=== PATIENT | female | born 1970 | race Caucasian/White ===

== ENCOUNTER 2019-02-25 17:35 | Emergency (ER) | payer BC, OTHER ==
[2019-02-25 17:39] VITALS: RESP 18
--- NOTE | 2019-02-25 17:56 | ED ---
General Adult HPI - General Chief complaint: Arrhythmia/Palpitations Stated complaint: heart concerns Time Seen by Provider: 02/25/19 17:35 Source: patient, RN notes reviewed Mode of arrival: ambulatory Limitations: no limitations - History of Present Illness Initial comments: This a 48-year-old female with a significant past medical history for PVCs. Patient states today she was at a restaurant she felt as though she was having PVCs. Patient had multiple PVCs and they did not seem to be stopping centimeter nervous and she came to the emergency department. Patient states she was short of breath with a PVC occurred but it only lasted seconds and then would resolve. Patient states currently she is having no PVCs and no shortness of breath per patient denies any chest pain. Patient denies any recent fever chills or cough. Patient denies abdominal pain patient denies nausea vomiting diarrhea. patient denies lightheadedness dizziness or near syncopal episode. Patient denies any caffeine use patient denies any drug use. Patient denies any alcohol use. He denies any decongestant use. Patient denies any swelling to the legs or calf tenderness. - Related Data Home Medications Medication Instructions Recorded Confirmed Cholecalciferol [Vitamin D3] 4,000 unit PO DAILY 02/25/19 02/25/19 Cyclobenzaprine [Flexeril] 10 mg PO DAILY PRN 02/25/19 02/25/19 Fexofenadine HCl [Melyssa Allergy] 180 mg PO DAILY 02/25/19 02/25/19 Fluticasone Nasal [place] [Flonase 1 spray EA NOSTRIL DAILY 02/25/19 02/25/19 Nasal [place]] Ibuprofen [Motrin] 600 mg PO Q8H PRN 02/25/19 02/25/19 Allergies Allergy/AdvReac Type Severity Reaction Status Date / Time latex Allergy Severe Rash/Hives/Lips Verified 02/25/19 18:46 swell codeine Allergy Rash/Hives Verified 02/25/19 18:46 Penicillins Allergy Rash/Hives Verified 02/25/19 18:46 Sulfa (Sulfonamide Allergy Rash/Hives Verified 02/25/19 18:46 Antibiotics) Review of Systems ROS Statement: Those systems with pertinent positive or pertinent negative responses have been documented in the HPI. ROS Other: All systems not noted in ROS Statement are negative. Past Medical History Additional Past Medical History / Comment(s): PVC's History of Any Multi-Drug Resistant Organisms: None Reported Past Surgical History: Cholecystectomy, Orthopedic Surgery, Uterine Ablation Additional Past Surgical History / Comment(s): D&C Past Psychological History: No Psychological Hx Reported Smoking Status: Former smoker Past Alcohol Use History: None Reported Past Drug Use History: None Reported General Exam - General Exam Comments Initial Comments: GENERAL: Patient is well-developed and well-nourished. Patient is nontoxic and well- hydrated and is in no acute distress. ENT: Neck is soft and supple. No significant lymphadenopathy is noted. Oropharynx is clear. Moist mucous membranes. Neck has full range of motion without eliciting any pain. EYES: The sclera were anicteric and conjunctiva were pink and moist. Extraocular movements were intact and pupils were equal round and reactive to light. Eyelids were unremarkable. PULMONARY: Unlabored respirations. Good breath sounds bilaterally. No audible rales rhonchi or wheezing was noted. CARDIOVASCULAR: There is a regular rate and rhythm without any murmurs gallops or rubs. ABDOMEN: Soft and nontender with normal bowel sounds. No palpable organomegaly was noted. There is no palpable pulsatile mass. SKIN: Skin is clear with no lesions or rashes and otherwise unremarkable. NEUROLOGIC: Patient is alert and oriented x3. Cranial nerves II through XII are grossly intact. Motor and sensory are also intact. Normal speech, volume and content. Symmetrical smile. MUSCULOSKELETAL: Normal extremities with adequate strength and full range of motion. No lower extremity swelling or edema. No calf tenderness. LYMPHATICS: No significant lymphadenopathy is noted PSYCHIATRIC: Normal psychiatric evaluation. Limitations: no limitations Course Vital Signs 02/25/19 02/25/19 17:36 18:46 Temperature 98.2 F Pulse Rate 90 87 Respiratory 18 18 Rate Blood Pressure 138/84 123/72 O2 Sat by Pulse 100 97 Oximetry Medical Decision Making - Medical Decision Making EKG shows normal sinus rhythm at 93 bpm AL interval 176 dresses 88 QT interval 376 QTC is 467. Patient's EKG shows no ST segment elevation or depression or T wave abnormalities are noted. Patient had multiple episodes of PVCs in the emergency department that correlated with her symptoms. - Lab Data Result diagrams: 02/25/19 17:55 02/25/19 17:55 Lab Results 04/19/19 04/19/19 04/19/19 Range/Units 17:55 17:55 17:55 WBC 10.0 (3.8-10.6) k/uL RBC 4.74 (3.80-5.40) m/uL Hgb 13.6 (11.4-16.0) gm/dL Hct 41.4 (34.0-46.0) % MCV 87.4 (80.0-100.0) fL MCH 28.7 (25.0-35.0) pg MCHC 32.8 (31.0-37.0) g/dL RDW 13.8 (11.5-15.5) % Plt Count 235 (150-450) k/uL Neutrophils % 66 % Lymphocytes % 25 % Monocytes % 3 % Eosinophils % 4 % Basophils % 1 % Neutrophils # 6.6 (1.3-7.7) k/uL Lymphocytes # 2.5 (1.0-4.8) k/uL Monocytes # 0.3 (0-1.0) k/uL Eosinophils # 0.4 (0-0.7) k/uL Basophils # 0.1 (0-0.2) k/uL PT 9.6 (9.0-12.0) sec INR 0.9 (<1.2) APTT 24.0 (22.0-30.0) sec Sodium 140 (137-145) mmol/L Potassium 3.8 (3.5-5.1) mmol/L Chloride 106 (98-107) mmol/L Carbon Dioxide 26 (22-30) mmol/L Anion Gap 8 mmol/L BUN 16 (7-17) mg/dL Creatinine 0.53 (0.52-1.04) mg/dL Est GFR (CKD-EPI)AfAm >90 (>60 ml/min/1.73 sqM) Est GFR (CKD-EPI)NonAf >90 (>60 ml/min/1.73 sqM) Glucose 126 H (74-99) mg/dL Calcium 9.4 (8.4-10.2) mg/dL Magnesium 2.1 (1.6-2.3) mg/dL Total Bilirubin 0.9 (0.2-1.3) mg/dL AST 25 (14-36) U/L ALT 30 (9-52) U/L Alkaline Phosphatase 81 (38-126) U/L Troponin I (0.000-0.034) ng/mL Total Protein 7.2 (6.3-8.2) g/dL Albumin 4.3 (3.5-5.0) g/dL TSH 2.670 (0.465-4.680) mIU/L Free T4 0.99 (0.78-2.19) ng/dL 02/25/19 Range/Units 17:55 WBC (3.8-10.6) k/uL RBC (3.80-5.40) m/uL Hgb (11.4-16.0) gm/dL Hct (34.0-46.0) % MCV (80.0-100.0) fL MCH (25.0-35.0) pg MCHC (31.0-37.0) g/dL RDW (11.5-15.5) % Plt Count (150-450) k/uL Neutrophils % % Lymphocytes % % Monocytes % % Eosinophils % % Basophils % % Neutrophils # (1.3-7.7) k/uL Lymphocytes # (1.0-4.8) k/uL Monocytes # (0-1.0) k/uL Eosinophils # (0-0.7) k/uL Basophils # (0-0.2) k/uL PT (9.0-12.0) sec INR (<1.2) APTT (22.0-30.0) sec Sodium (137-145) mmol/L Potassium (3.5-5.1) mmol/L Chloride (98-107) mmol/L Carbon Dioxide (22-30) mmol/L Anion Gap mmol/L BUN (7-17) mg/dL Creatinine (0.52-1.04) mg/dL Est GFR (CKD-EPI)AfAm (>60 ml/min/1.73 sqM) Est GFR (CKD-EPI)NonAf (>60 ml/min/1.73 sqM) Glucose (74-99) mg/dL Calcium (8.4-10.2) mg/dL Magnesium (1.6-2.3) mg/dL Total Bilirubin (0.2-1.3) mg/dL AST (14-36) U/L ALT (9-52) U/L Alkaline Phosphatase (38-126) U/L Troponin I <0.012 (0.000-0.034) ng/mL Total Protein (6.3-8.2) g/dL Albumin (3.5-5.0) g/dL TSH (0.465-4.680) mIU/L Free T4 (0.78-2.19) ng/dL Disposition Clinical Impression: PVC (premature ventricular contraction) Disposition: HOME SELF-CARE Condition: Good Instructions (If sedation given, give patient instructions): Premature Ventricular Contractions (ED) Referrals: Hank Campos MD [Primary Care Provider] - 1-2 days Time of Disposition: 18:59
[2019-02-25 18:09] LABS: Basophils # (A) 0.1 k/uL (0-0.2); Basophils % (A) 1 %; Eosinophils # (A) 0.4 k/uL (0-0.7); Eosinophils % (A) 4 %; HCT 41.4 % (34.0-46.0); HGB 13.6 gm/dL (11.4-16.0); Lymphocytes # (A) 2.5 k/uL (1.0-4.8); Lymphocytes % (A) 25 %; MCH 28.7 pg (25.0-35.0); MCHC 32.8 g/dL (31.0-37.0); MCV 87.4 fL (80.0-100.0); Monocytes # (A) 0.3 k/uL (0-1.0); Monocytes % (A) 3 %; Neutrophils # (A) 6.6 k/uL (1.3-7.7); Neutrophils % (A) 66 %; Platelet Count 235 k/uL (150-450); RBC 4.74 m/uL (3.80-5.40); RDW 13.8 % (11.5-15.5)
[2019-02-25 18:17] LABS: ALT 30 U/L (9-52); AST 25 U/L (14-36); Albumin 4.3 g/dL (3.5-5.0); Alkaline Phosphatase 81 U/L (38-126); Anion Gap 8 mmol/L; Blood Urea Nitrogen 16 mg/dL (7-17); Calcium 9.4 mg/dL (8.4-10.2); Carbon Dioxide 26 mmol/L (22-30); Chloride 106 mmol/L (98-107); Glucose 126 mg/dL (74-99); INR 0.9 (<1.2); Magnesium 2.1 mg/dL (1.6-2.3); Potassium 3.8 mmol/L (3.5-5.1); Prothrombin Time 9.6 sec (9.0-12.0); Sodium 140 mmol/L (137-145); Total Bilirubin 0.9 mg/dL (0.2-1.3); Total Protein 7.2 g/dL (6.3-8.2)
[2019-02-25 18:34] LABS: T4, Free (Free Thyroxine) 0.99 ng/dL (0.78-2.19)
[2019-02-25 18:48] VITALS: PULSE 87
[2019-02-25 19:18] VITALS: BP 128/74; TEMP 98.3
== END 2019-02-25 19:17 | disposition home or self-care (01) ==
LOC: EC 17:35
DX: I49.3 Ventricular premature depolarization (principal); Z87.891 Personal history of nicotine dependence; Z79.899 Other long term (current) drug therapy; Z88.0 Allergy status to penicillin; Z88.2 Allergy status to sulfonamides; Z88.5 Allergy status to narcotic agent; Z91.040 Latex allergy status
CPT/HCPCS: 36415; 80053; 83735; 84439; 84443; 84484; 85025; 85610; 85730; 93005; 99285

== ENCOUNTER → 2019-03-09 | Outpatient (CLI) | payer BC ==
--- NOTE | 2019-03-09 11:45 | EST ---
EXERCISE STRESS AGE: 48 SEX: F HT: 66" WT: 280 PROTOCOL: José Miguel Stress Test STAGE: 3 DURATION OF EXERCISE: 6:32 HEART RATE REST: 100 BLOOD PRESSURE REST: 132/82 MAXIMUM HEART RATE ACHIEVED: 151 MAXIMUM BLOOD PRESSURE: 167/77 85% MPHR: 146 100% MPHR: 172 METS: 7.9 INDICATIONS: PVC CLINICAL INFORMATION: Baseline heart rate 100 beats per minute. Baseline blood pressure 132/82 mmHg. Baseline 12-lead ECG shows sinus rhythm with nonspecific ST upsloping abnormality. Patient exercised on a José Miguel protocol for 6.5 minutes and was quite short of breath by then. Occasional PVCs and ventricular couplets noted. Peak heart rate 151 beats per minute. Normal blood pressure response. There was no clear-cut ECG evidence for ischemia, no sustained or nonsustained arrhythmias noted. MMODL / IJN: [id number] /
== END | disposition home or self-care (01) ==
LOC: RADNMMAIN 08:59
PROVIDERS: ATTEND Family Medicine
DX: I49.3 Ventricular premature depolarization (principal)
CPT/HCPCS: 93017

== ENCOUNTER → 2019-10-28 | Outpatient (CLI) | payer BC ==
--- NOTE | 2019-11-14 08:55 | MM ---
Reason for exam: screening (asymptomatic). Last mammogram was performed 1 year and 6 months ago. History: Family history of breast cancer in paternal aunt. Physical Findings: A clinical breast exam by your physician is recommended on an annual basis and results should be correlated with mammographic findings. MG Screening Mammo w CAD Bilateral CC and MLO view(s) were taken. Prior study comparison: April 23, 2018, mammogram. February 18, 2017, mammogram. April 13, 2013, bilateral digital screening mammo w/CAD. June 20, 2011, bilateral digital screening mammo w/CAD. There are scattered fibroglandular densities. No significant changes when compared with prior studies. ASSESSMENT: Benign, BI-RAD 2 RECOMMENDATION: Routine screening mammogram of both breasts in 1 year.
== END | disposition home or self-care (01) ==
LOC: RADMAMWWP 07:03
PROVIDERS: ATTEND Family Medicine
DX: Z12.31 Encounter for screening mammogram for malignant neoplasm of breast (principal)
CPT/HCPCS: 77067

== ENCOUNTER → 2020-02-23 | Outpatient (CLI) | payer OTHER ==
--- NOTE | 2020-02-23 12:32 | XR ---
EXAMINATION TYPE: XR shoulder complete LT DATE OF EXAM: 02/23/2020 COMPARISON: NONE HISTORY: 49-year-old female M24.9, pain for a few weeks TECHNIQUE: 3 views FINDINGS: AC joint appears intact. Subacromial space is preserved. No acute fracture, subluxation, or dislocation seen. There is some limitation due to underpenetration related to patient's large body h abitus. No tendinous or bursal calcifications. IMPRESSION: No acute osseous abnormality seen.
== END | disposition home or self-care (01) ==
LOC: RADXRMAIN 12:11
PROVIDERS: ATTEND Family Medicine
DX: M24.9 Joint derangement, unspecified (principal)

== ENCOUNTER 2020-09-13 08:32 | Day surgery (SDC) | payer OTHER ==
[2020-09-11 14:44] VITALS: BMI 46.0
--- NOTE | 2020-09-13 07:40 | P.GSHP ---
History of Present Illness H&P Date: 09/13/20 CHIEF COMPLAINT: Colon screen HISTORY OF PRESENT ILLNESS: The patient is a 50-year-old female who presents for colon screen. Lower endoscopy was offered for further evaluation and management. PAST MEDICAL HISTORY: Please see list. PAST SURGICAL HISTORY: Please see list. MEDICATIONS: Please see list. ALLERGIES: Please see list. SOCIAL HISTORY: No illicit drug use FAMILY HISTORY: No reports of Crohn disease or ulcerative colitis. REVIEW OF ORGAN SYSTEMS: CONSTITUTIONAL: No reports of fevers or chills. PHYSICAL EXAM: VITAL SIGNS: Stable GENERAL: Well-developed pleasant in no acute distress. HEENT: No scleral icterus. Extraocular movements grossly intact. Moist buccal mucosa. NECK: Supple without lymphadenopathy. CHEST: Unlabored respirations. Equal bilateral excursions. CARDIOVASCULAR: Regular rate and rhythm. Distal 2+ pulses. ABDOMEN: Soft, nontender, nondistended. MUSCULOSKELETAL: No clubbing, cyanosis, or edema. ASSESSMENT: 1. Colon screen. PLAN: 1. Recommend proceeding with a lower endoscopy Past Medical History Additional Past Medical History / Comment(s): PVC's,migraines,steroids Sept 2020 History of Any Multi-Drug Resistant Organisms: None Reported Past Surgical History: Cholecystectomy, Orthopedic Surgery, Uterine Ablation Additional Past Surgical History / Comment(s): D&C Past Anesthesia/Blood Transfusion Reactions: No Reported Reaction Smoking Status: Former smoker - Past Family History Mother Family Medical History: No Reported History Sister(s) Family Medical History: Cancer, Deep Vein Thrombosis (DVT) Additional Family Medical History / Comment(s): BRCA1-Carries breast and ovarian CA gene and blood clot gene Father Additional Family Medical History / Comment(s): BRCA1 gene Medications and Allergies Home Medications Medication Instructions Recorded Confirmed Type Cyclobenzaprine [Flexeril] 10 mg PO DAILY PRN 02/25/19 09/11/20 History DULoxetine HCL [Cymbalta] 60 mg PO HS 09/11/20 09/11/20 History Magnesium 250 mg PO HS 09/11/20 09/11/20 History Propranolol [Inderal] 10 mg PO HS 09/11/20 09/11/20 History Allergies Allergy/AdvReac Type Severity Reaction Status Date / Time latex Allergy Severe Rash/Hives/Lips Verified 09/11/20 14:35 swell codeine Allergy Rash/Hives Verified 09/11/20 14:35 Penicillins Allergy Rash/Hives Verified 09/11/20 14:35 Sulfa (Sulfonamide Allergy blisters Verified 09/11/20 14:35 Antibiotics)
[~2020-09-13 08:32] MED LIST: LACTATED RINGERS 1,000 ML IV SCH; LIDOCAINE 1% (10MG/ML) FOR IV START INTRADERMA PRN
[2020-09-13 09:09] VITALS: RESP 16; TEMP 97.2
[2020-09-13] MEDS ORDERED: PROPOFOL 10 MG/ML 20 ML VIAL IV ONE (09:20)
--- NOTE | 2020-09-13 09:51 | P.PCN ---
Date of Procedure: 09/13/20 Description of Procedure: PREOPERATIVE DIAGNOSIS: Family history colon polyps in mother and brother Colonoscopy screening, first POSTOPERATIVE DIAGNOSIS: Family history colon polyps in mother and brother Colonoscopy screening, first Ascending colon polyp Descending colon polyp Sigmoid colon polyp OPERATION: Colonoscopy to the ileocecal valve and appendiceal orifice, cecum Colonoscopy with multiple hot snare polypectomies SURGEON: Emily Anderson MD. ANESTHESIA: MAC. INDICATIONS: The patient is an 50-year-old female who presents for her first colonoscopy. Benefits and risks were described and informed consent was obtained. DESCRIPTION OF PROCEDURE: The patient had undergone Suprep. He had been brought into the operating room and laid in the left lateral decubitus position. After adequate intravenous sedation, the rectum was examined with 2% lidocaine jelly. The prostate was unremarkable. External hemorrhoids were encountered. The rectal tone was within normal limits. No lesions were palpated in the rectal vault. An Olympus colonoscope was advanced until the cecum, ileocecal valve and appendiceal orifice were clearly viewed. The prep was excellent. Sigmoid diverticulosis was encountered. Multiple colonic polyps were found and snare polypectomy. No evidence of focal colitis was found. Retroflexion of the scope demonstrated grade 2 internal hemorrhoids without active bleeding or inflammation. The colon was desufflated. The patient had tolerated the procedure well. Withdrawal time was over 6 minutes. FINDINGS: Aronchick preparation quality scale 1 (1-5) Internal hemorrhoids, grade 2 External hemorrhoids, grade 2. No arteriovenous malformations Sigmoid diverticulosis, few, small and scattered Removal of 5 polyps: - Snare polypectomy ascending colon, 5 mm tubulovillous adenoma polyp. - Snare polypectomy descending colon x 3, 4 to 6 mm flat villous adenoma po lyps. - Snare polypectomy sigmoid colon, 6 mm flat villous adenoma polyp. No focal colitis. RECOMMENDATIONS: Repeat colonoscopy 3 years, 2022 Plan - Discharge Summary Discharge Rx Participant: No New Discharge Prescriptions: Continue Cyclobenzaprine [Flexeril] 10 mg PO DAILY PRN PRN Reason: Muscle Spasm Propranolol [Inderal] 10 mg PO HS DULoxetine HCL [Cymbalta] 60 mg PO HS Magnesium 250 mg PO HS Discharge Medication List Cyclobenzaprine [Flexeril] 10 mg PO DAILY PRN 02/25/19 [History] DULoxetine HCL [Cymbalta] 60 mg PO HS 09/11/20 [History] Magnesium 250 mg PO HS 09/11/20 [History] Propranolol [Inderal] 10 mg PO HS 09/11/20 [History] Follow up Appointment(s)/Referral(s): Emily Anderson MD [STAFF PHYSICIAN] - 09/25/20 Patient Instructions/Handouts: Colorectal Polyps (DC), Gastroesophageal Reflux Disease (ED) Activity/Diet/Wound Care/Special Instructions: Repeat colonoscopy 3 years, 2022 Discharge Disposition: HOME SELF-CARE
[2020-09-13 10:11] VITALS: BP 128/76; PULSE 77
== END 2020-09-13 10:28 | disposition home or self-care (01) ==
LOC: ORWHC2ENDO 08:32
PROVIDERS: ATTEND Surgery Plastic and Reconstructive Surgery
DX: Z12.11 Encounter for screening for malignant neoplasm of colon (principal); K63.5 Polyp of colon; K57.30 Diverticulosis of large intestine without perforation or abscess without bleeding; K64.1 Second degree hemorrhoids; K21.9 Gastro-esophageal reflux disease without esophagitis; Z83.71 Family history of colonic polyps; I49.3 Ventricular premature depolarization; E66.2 Morbid (severe) obesity with alveolar hypoventilation; Z68.42 Body mass index [BMI] 45.0-49.9, adult; G43.909 Migraine, unspecified, not intractable, without status migrainosus; Z90.49 Acquired absence of other specified parts of digestive tract; Z87.891 Personal history of nicotine dependence; Z98.51 Tubal ligation status; Z98.890 Other specified postprocedural states; Z79.899 Other long term (current) drug therapy; Z84.89 Family history of other specified conditions; Z82.49 Family history of ischemic heart disease and other diseases of the circulatory system; Z88.5 Allergy status to narcotic agent; Z88.0 Allergy status to penicillin; Z88.2 Allergy status to sulfonamides; Z91.040 Latex allergy status
CPT/HCPCS: 81025; 88305; 45385; J2704

== ENCOUNTER → 2020-11-12 | Outpatient (CLI) | payer OTHER ==
--- NOTE | 2020-11-14 14:25 | MM ---
Reason for exam: screening (asymptomatic). Last mammogram was performed 1 year ago. History: Family history of breast cancer in paternal aunt and breast cancer in sister at age 46. Physical Findings: A clinical breast exam by your physician is recommended on an annual basis and results should be correlated with mammographic findings. MG 3D Screening Mammo W/Cad Bilateral CC and MLO view(s) were taken. Prior study comparison: October 28, 2019, bilateral MG screening mammo w CAD. April 23, 2018, mammogram. There are scattered fibroglandular densities. There is chronic nodularity in the right breast. No significant changes when compared with prior studies. ASSESSMENT: Benign, BI-RAD 2 RECOMMENDATION: Routine screening mammogram of both breasts in 1 year.
== END | disposition home or self-care (01) ==
LOC: RADMAMWWP 07:01
PROVIDERS: ATTEND Family Medicine
DX: Z12.31 Encounter for screening mammogram for malignant neoplasm of breast (principal)
CPT/HCPCS: 77063; 77067

== ENCOUNTER → 2021-07-04 | Outpatient (CLI) | payer BC, OTHER ==
--- NOTE | 2021-07-05 08:28 | XR ---
EXAMINATION TYPE: XR chest 2V DATE OF EXAM: 07/04/2021 COMPARISON: None HISTORY: 50-year-old female R05, cough TECHNIQUE: Frontal and lateral views FINDINGS: The cardiomediastinal silhouette, aorta, and pulmonary vasculature are within normal limits. Lungs an d pleural spaces are clear. IMPRESSION: No acute cardiopulmonary process.
== END | disposition home or self-care (01) ==
LOC: RADXRMAIN 17:13
PROVIDERS: ATTEND Nurse Practitioner
DX: R05 Cough (principal)
CPT/HCPCS: 71046

== ENCOUNTER → 2021-08-05 | Outpatient (CLI) | payer BC, OTHER ==
--- NOTE | 2021-08-05 14:57 | XR ---
EXAMINATION TYPE: XR knee complete LT DATE OF EXAM: 08/05/2021 CLINICAL HISTORY: Pain and swelling after fall injury. TECHNIQUE: Three views of the left knee are obtained on 4 images. COMPARISON: None. FINDINGS: There is no acute fracture/dislocation evident in the left knee. Mild to moderate narrowin g patellofemoral and medial tibiofemoral compartments with mild spurring medially medial tibiofemoral compartment. The overlying soft tissue appears unremarkable. IMPRESSION: There is no acute fracture or dislocation in the left knee.
--- NOTE | 2021-08-05 15:58 | CT ---
EXAMINATION TYPE: CT angio head DATE OF EXAM: 08/05/2021 3:49 PM COMPARISON: CT brain March 24, 2014. HISTORY: Right frontal head injury yesterday. Rule out aneurysm with headache. CT DLP: 2217 mGycm Automated exposure control for dose reduction was used. TECHNIQUE: Performed without and with IV Contrast, patient injected with 100 mL of Isovue 370. 3D reconstructed images are created on an independent workstation and reviewed.. FINDINGS: Vascular: There is codominant vertebrobasilar system. Vertebral arteries are patent to basilar junct ion. No significant focal stenosis or aneurysm in the posterior circulation. Hypoplastic bilateral po sterior communicating arteries are present. Images of the anterior circulation show close proximity of the anterior cerebral arteries without vis ualized anterior to indicating artery. No significant focal stenosis or aneurysm is present. Other: Noncontrast CT shows no acute intracranial hemorrhage or midline shift. Mild mucosal thickenin g visualized portion of the right maxillary sinus. IMPRESSION: No aneurysm at the level of the gray[place] of [place].
== END | disposition home or self-care (01) ==
LOC: RADCTMAIN 14:25
PROVIDERS: ATTEND Nurse Practitioner
DX: M25.562 Pain in left knee (principal); R22.42 Localized swelling, mass and lump, left lower limb; W19.XXXA Unspecified fall, initial encounter; S09.90XA Unspecified injury of head, initial encounter
CPT/HCPCS: 73562; 70496; Q9967

== ENCOUNTER → 2021-08-14 | Outpatient (CLI) | payer BC, OTHER ==
--- NOTE | 2021-08-15 04:01 | MR ---
EXAMINATION TYPE: MR knee LT wo con DATE OF EXAM: 08/14/2021 COMPARISON: None HISTORY: Torn meniscus Multiplanar multiecho imaging of the left knee without contrast. The anterior and posterior cruciate ligaments are intact. There is mild knee joint effusion. The claudio ateral ligaments are intact. There is no evidence of a fracture. I see no bony destructive process. There is horizontal tear through the posterior horn of the lateral meniscus extending to the free mar gin. There is some intrasubstance tear within the anterior horn of the lateral meniscus. There is small horizontal tear posterior horn medial meniscus within the substance and no extension t o the articular surface. There is popliteal cyst that measures 3 x 1.5 cm. IMPRESSION: Knee joint effusion. No fracture. Mild subcutaneous edema around the anterior aspect of the knee. Pop liteal cyst. Horizontal tear of the posterior horn of the lateral meniscus. Intrasubstance tears of the anterior h orn lateral meniscus and posterior horn medial meniscus.
== END | disposition home or self-care (01) ==
LOC: RADMRIMAIN 19:26
PROVIDERS: ATTEND Family Medicine
DX: M23.352 Other meniscus derangements, posterior horn of lateral meniscus, left knee (principal); M23.342 Other meniscus derangements, anterior horn of lateral meniscus, left knee; M23.322 Other meniscus derangements, posterior horn of medial meniscus, left knee

== ENCOUNTER → 2022-10-10 | Outpatient (CLI) | payer BC ==
--- NOTE | 2022-10-13 08:37 | MM ---
Reason for Exam: Screening (asymptomatic). Last mammogram was performed 1 year(s) and 11 month(s) ago. Patient History: Menarche at age 12. First Full-Term at age 22. Postmenopausal. Paternal aunt had breast cancer. Sister had breast cancer, age 46. Risk Values: Beatriz 5 year model risk: 2.0%. NCI Lifetime model risk: 15.9%. Prior Study Comparison: 04/23/2018 Screening Mammogram, Unknown. 10/28/2019 Bilateral Screening Mammogram, [facility]. 11/12/2020 Bilateral Screening Mammogram, [facility]. Tissue Density: The breast tissue is heterogeneously dense. This may lower the sensitivity of mammography. Findings: Analyzed By CAD. There is no suspicious group of microcalcifications or new suspicious mass in either breast. Overall Assessment: Negative, BI-RAD 1 Management: Screening Mammogram of both breasts in 1 year. A clinical breast exam by your physician is recommended on an annual basis and results should be correlated with mammographic findings. Electronically signed and approved by: Albert Og M.D. Radiologis
== END | disposition home or self-care (01) ==
LOC: RADMAMWWP 09:29
PROVIDERS: ATTEND Family Medicine
DX: Z12.31 Encounter for screening mammogram for malignant neoplasm of breast (principal); Z78.0 Asymptomatic menopausal state; Z80.3 Family history of malignant neoplasm of breast
CPT/HCPCS: 77063; 77067

== ENCOUNTER → 2023-02-06 | Outpatient (CLI) | payer MEDICAID ==
--- NOTE | 2023-02-06 12:48 | BD ---
EXAMINATION TYPE: Axial Bone Density DATE OF EXAM: 02/06/2023 CLINICAL HISTORY: 52 years old Female. ICD-10 CODE: Z78.0 ASYMPTOMATIC MENOAPUSAL STATE Height: 66.5 Weight: 325.1 FRAX RISK QUESTIONS: Alcohol (3 or more units per day): no Family History (Parent hip fracture): no Glucocorticoids (More than 3mos): no History of Fracture in Adulthood: ribs, coccyx, toe, Secondary Osteoporosis: 1. Type 1 Diabetes: no 2. Hyperthyroidism: no 3. Menopause before 45: no 4. Malnutrition: no 5. Chronic liver disease: no Rheumatoid Arthritis: no Current Tobacco Use: no RISK FACTORS HISTORY OF: Hip Fracture (Right/Left): no Spine Fracture: no History of Wrist Fracture: no Surgery to Spine/Hip(right/left)/Wrist (right/left): no Family History of Osteoporosis: no Active: no Diet low in dairy products/other sources of calcium: yes Postmenopausal woman: yes Take estrogen and/or progesterone medications: no Lost more than 2 inches in height since high school: no Frequent falls: yes Poor Health: no Hyperparathyroidism: no Adrenal Insufficiency: no MEDICATIONS: Prednisone or other steroids: no Thyroid Medications:no Osteoporosis Medications: no Additional Medications: Vit D, Multi Vit, reflux meds, magnesium Additional History: EXAM MEASUREMENTS: Bone mineral densitometry was performed using the [employer] System. Bone mineral density as measured about the Lumbar spine is: ----- L1-L4(G/cm2): 1.149 T Score Values are as follows: ----- L1: -0.1 ----- L2: 0.0 ----- L3: -0.6 ----- L4: -0.4 ----- L1-L4: -0.3 Z Score Values are as follows: ----- L1: -0.7 ----- L2: -0.6 ----- L3: -1.2 ----- L4: -1.0 ----- L1-L4: -0.8 Baseline study Bone mineral density about the R hip (g/cm2): 1.148 Bone mineral density about the L hip (g/cm2): 1.101 T Score values are as follows: -----R Neck: -0.1 -----L Neck: -0.3 -----R Total: 1.1 -----L Total: 0.7 Z Score values are as follows: -----R Neck: 0.0 -----L Neck: -0.2 -----R Total: 0.8 -----L Total: 0.5 Baseline study FRAX%s: The graph provided illustrates a 3.6% chance for a major osteoporotic fx and a 0.1% chance fo r the hips probability for fx in 10 years time. IMPRESSION: Normal (Values between +1 and -1 indicate normal bone mass). Consider repeating this study in 5 year s or sooner if there is some new clinical indication. NOTE: T-SCORE=SD OF THE YOUNG ADULT MEAN.
== END | disposition home or self-care (01) ==
LOC: RADBDWWP 10:45
PROVIDERS: ATTEND Family Medicine
DX: Z78.0 Asymptomatic menopausal state (principal)
CPT/HCPCS: 77080

== ENCOUNTER → 2023-10-16 | Outpatient (CLI) | payer MEDICAID ==
--- NOTE | 2023-10-20 11:21 | MM ---
Reason for Exam: Screening (asymptomatic). Last screening mammogram was performed 12 month(s) ago. Patient History: Menarche at age 12. First Full-Term at age 22. Postmenopausal. Patient has history of breast feeding. Patient tested for BRCA1 outcome was negative. Paternal aunt had breast cancer. Sister had breast cancer, age 46. Sister had ovarian cancer, age 48. Paternal aunt tested for BRCA2 outcome was positive. Sister tested for BRCA2 outcome was positive. Risk Values: Beatriz 5 year model risk: 2.1%. NCI Lifetime model risk: 15.7%. Prior Study Comparison: 04/13/2013 Bilateral Screening Mammogram, [facility]. 02/18/2017 Screening Mammogram, Unknown. 04/23/2018 Screening Mammogram, Unknown. 10/28/2019 Bilateral Screening Mammogram, [facility]. 11/12/2020 Bilateral Screening Mammogram, [facility]. 10/10/2022 Bilateral MG 3D screening mammo w/cad, [facility]. Tissue Density: There are scattered fibroglandular densities. Findings: Analyzed By CAD. Heart appears symmetrical and stable. Benign chronic nodularity is within the right breast upper outer middle region. No suspicious groups of microcalcifications, spiculated or lobular masses, architectural distortion or other secondary signs of malignancy are mammographically apparent. Overall Assessment: Benign, BI-RAD 2 Management: Screening Mammogram of both breasts in 1 year. A negative mammogram report should not preclude additional follow up of suspicious palpable abnormalities. Patient should continue monthly self breast exam. A clinical breast exam by your physician is recommended on an annual basis and results should be correlated with mammographic findings. Electronically signed and approved by: Petey Mcqueen D.O. Radiologis
== END | disposition home or self-care (01) ==
LOC: RADMAMWWP 11:08
PROVIDERS: ATTEND Family Medicine
DX: Z12.31 Encounter for screening mammogram for malignant neoplasm of breast (principal); Z78.0 Asymptomatic menopausal state; Z80.3 Family history of malignant neoplasm of breast
CPT/HCPCS: 77063; 77067

== ENCOUNTER 2023-11-12 09:35 | Day surgery (SDC) | payer MEDICAID ==
[2023-11-11 09:21] VITALS: BMI 52.6
--- NOTE | 2023-11-12 07:47 | P.GSHP ---
History of Present Illness H&P Date: 11/12/23 CHIEF COMPLAINT: GERD and colon screen HISTORY OF PRESENT ILLNESS: The patient is a 53-year-old female who presents with gastroesophageal reflux disease and need for colon screen. Upper and lower endoscopy were offered for further evaluation and management. PAST MEDICAL HISTORY: Please see list. PAST SURGICAL HISTORY: Please see list. MEDICATIONS: Please see list. ALLERGIES: Please see list. SOCIAL HISTORY: No illicit drug use FAMILY HISTORY: No reports of Crohn disease or ulcerative colitis. REVIEW OF ORGAN SYSTEMS: CONSTITUTIONAL: No reports of fevers or chills. GI: Denies any blood in stools or constipation. PHYSICAL EXAM: VITAL SIGNS: Stable GENERAL: Well-developed pleasant in no acute distress. HEENT: No scleral icterus. Extraocular movements grossly intact. Moist buccal mucosa. NECK: Supple without lymphadenopathy. CHEST: Unlabored respirations. Equal bilateral excursions. CARDIOVASCULAR: Regular rate and rhythm. Distal 2+ pulses. ABDOMEN: Soft, nondistended. MUSCULOSKELETAL: No clubbing, cyanosis, or edema. ASSESSMENT: 1. Gastroesophageal reflux disease 2. Colon screen. PLAN: 1. Recommend proceeding with an upper and lower endoscopy Past Medical History Additional Past Medical History / Comment(s): PVC's,migraines,polyneuropathy History of Any Multi-Drug Resistant Organisms: None Reported Past Surgical History: Cholecystectomy, Orthopedic Surgery, Uterine Ablation Additional Past Surgical History / Comment(s): D&C, right foot surgery, ankle surgery right 2021, post menopausal Past Anesthesia/Blood Transfusion Reactions: No Reported Reaction Additional Past Anesthesia/Blood Transfusion Reaction / Comment(s): no blood transfusion Smoking Status: Former smoker - Past Family History Mother Family Medical History: No Reported History Sister(s) Family Medical History: Cancer, Deep Vein Thrombosis (DVT) Additional Family Medical History / Comment(s): BRCA1-Carries breast and ovarian CA gene and blood clot gene Father Additional Family Medical History / Comment(s): BRCA1 gene Medications and Allergies Home Medications Medication Instructions Recorded Confirmed Type DULoxetine HCL [Cymbalta] 60 mg PO DAILY 09/11/20 11/11/23 History Magnesium 250 mg PO HS 09/11/20 11/11/23 History Atogepant [Qulipta] 60 mg PO DAILY 11/11/23 11/11/23 History Calcium Carbonate/Vitamin D3 1 each PO DAILY 11/11/23 11/11/23 History [Calcium 500 mg-Vit D3 5 mcg (200 Unit)] Fluticasone Propionate [Flonase 2 spray EA NOSTRIL DAILY 11/11/23 11/11/23 History Allergy Relief] Levocetirizine Dihydrochloride 10 mg PO DAILY 11/11/23 11/11/23 History Multivitamin [Multivitamins Adult 1 each PO DAILY 11/11/23 11/11/23 History Gummies] Omeprazole [PriLOSEC] 20 mg PO DAILY 11/11/23 11/11/23 History Allergies Allergy/AdvReac Type Severity Reaction Status Date / Time latex Allergy Severe Rash/Hives/Lips Verified 11/11/23 08:45 swell codeine Allergy Rash/Hives Verified 11/11/23 08:45 Penicillins Allergy Rash/Hives Verified 11/11/23 08:45 Sulfa (Sulfonamide Allergy blisters Verified 11/11/23 08:45 Antibiotics)
[~2023-11-12 09:35] MED LIST changes: -LIDOCAINE 1% (10MG/ML) FOR IV START INTRADERMA PRN
[2023-11-12 10:39] VITALS: TEMP 97.8
[2023-11-12] MEDS ORDERED: PROPOFOL 10 MG/ML 20 ML VIAL IV ONE (10:48)
[2023-11-12] MEDS ORDERED: KETAMINE HCL IN 0.9 % NACL 50 MG/5 ML SYRINGE ONE (10:48)
[2023-11-12] MEDS ORDERED: MIDAZOLAM 2 MG/2 ML VIAL ONE (10:48)
[2023-11-12] MEDS ORDERED: LIDOCAINE 1% INJ 10MG/ML (20 ML MDV) ONE (10:48)
[2023-11-12] MEDS ORDERED: GLYCOPYRROLATE 0.2 MG/ML 2 ML VIAL ONE (10:48)
[2023-11-12 11:51] VITALS: BP 144/78; PULSE 87; RESP 18
--- NOTE | 2023-11-12 11:59 | P.PCN ---
Date of Procedure: 11/12/23 Description of Procedure: PREOPERATIVE DIAGNOSIS: Gastroesophageal reflux disease. Morbid obesity. POSTOPERATIVE DIAGNOSIS: Gastroesophageal reflux disease. Morbid obesity. Gastritis. OPERATION: Esophagogastroduodenoscopy with biopsies along esophagus, antrum and duodenum SURGEON: Emily Anderson MD ANESTHESIA: MAC. INDICATIONS: The patient is a 53-year-old female who presents with reflux disease. Benefits and risks of the procedure were described. Informed consent was obtained. DESCRIPTION: The patient was brought into the endoscopy suite and laid in the left lateral decubitus position. An Olympus gastroscope was passed along the posterior oropharynx down to the distal esophagus where the squamocolumnar junction was encountered at 36 cm from the incisors. The stomach was entered and no bile reflux was found. Additional findings are listed below. Biopsies with cold forceps were obtained of the antrum. The first through third portion of the duodenum was examined. Retroflexion of the scope confirmed Hill grade 2 lower esophageal valve. The squamocolumnar junction demonstrated LA grade B erosive esophagitis. The stomach was desufflated. The patient tolerated the procedure well. FINDINGS: Squamocolumnar junction 36 cm from the incisors. Diaphragmatic hiatus at 36 cm. Hill grade 3 lower esophageal valve. LA grade B erosive esophagitis. Biopsies obtained Biopsies obtained of the duodenum. Chronic gastritis with biopsies obtained. RECOMMENDATIONS: Upper endoscopy as needed.
--- NOTE | 2023-11-12 12:03 | P.PCN ---
Date of Procedure: 11/12/23 Description of Procedure: PREOPERATIVE DIAGNOSIS: Colonoscopy screening, high risk Family history colon cancer Personal history of colon polyps POSTOPERATIVE DIAGNOSIS: Colonoscopy screening, high risk Family history colon cancer Personal history of colon polyps Diverticulosis, scattered. OPERATION: Colonoscopy to the cecum, ileocecal valve and appendiceal orifice. SURGEON: Emily Anderson MD. ANESTHESIA: MAC. INDICATIONS: The patient is a 53-year-old female who presents for colonoscopy screening. Benefits and risks were described and informed consent was obtained. DESCRIPTION OF PROCEDURE: The patient had undergone Suprep. The patient had been brought into the operating room and laid in the left lateral decubitus position. After adequate intravenous sedation, the rectum was examined with 2% lidocaine jelly. No external hemorrhoids were encountered. The rectal tone was within normal limits. No lesions were palpated in the rectal vault. An Olympus colonoscope was advanced until the cecum, ileocecal valve and appendiceal orifice were clearly viewed. The prep was excellent. Scattered diverticulosis was encountered. No colonic polyps were found. No evidence of focal colitis was found. Retroflexion of the scope demonstrated grade 1 internal hemorrhoids without active bleeding or inflammation. The colon was desufflated. The patient had tolerated the procedure well. Withdrawal time was over 6 minutes. FINDINGS: Aronchick preparation quality scale 1 (1-5) Internal hemorrhoids, grade 1 No external prolapsed hemorrhoids. No arteriovenous malformations. No adenomatous polyps. No focal colitis. RECOMMENDATIONS: Lower endoscopy in 5 years, 2028 Plan - Discharge Summary Discharge Rx Participant: No New Discharge Prescriptions: Continue DULoxetine HCL [Cymbalta] 60 mg PO DAILY Magnesium 250 mg PO HS Multivitamin [Multivitamins Adult Gummies] 1 each PO DAILY Fluticasone Propionate [Flonase Allergy Relief] 2 spray EA NOSTRIL DAILY Atogepant [Qulipta] 60 mg PO DAILY Omeprazole [PriLOSEC] 20 mg PO DAILY Levocetirizine Dihydrochloride 10 mg PO DAILY Calcium Carbonate/Vitamin D3 [Calcium 500 mg-Vit D3 5 mcg (200 Unit)] 1 each PO DAILY Discharge Medication List DULoxetine HCL [Cymbalta] 60 mg PO DAILY 09/11/20 [History] Magnesium 250 mg PO HS 09/11/20 [History] Atogepant [Qulipta] 60 mg PO DAILY 11/11/23 [History] Calcium Carbonate/Vitamin D3 [Calcium 500 mg-Vit D3 5 mcg (200 Unit)] 1 each PO DAILY 11/11/23 [History] Fluticasone Propionate [Flonase Allergy Relief] 2 spray EA NOSTRIL DAILY 11/11/23 [History] Levocetirizine Dihydrochloride 10 mg PO DAILY 11/11/23 [History] Multivitamin [Multivitamins Adult Gummies] 1 each PO DAILY 11/11/23 [History] Omeprazole [PriLOSEC] 20 mg PO DAILY 11/11/23 [History] Follow up Appointment(s)/Referral(s): Emily Anderson MD [STAFF PHYSICIAN] - 12/29/23 4:30 pm Patient Instructions/Handouts: *Surgery [facility] - (Anesthesia) Discharge Instructions Outpatient Surgery, Diverticulosis (DC), Diverticulosis Diet (GEN), Colonoscopy (DC), Upper Endoscopy (DC) Activity/Diet/Wound Care/Special Instructions: Repeat colonoscopy in 5 years2028 Discharge Disposition: HOME SELF-CARE
== END 2023-11-12 12:26 | disposition home or self-care (01) ==
LOC: ORWHC2ENDO 09:35
PROVIDERS: ATTEND Surgery Plastic and Reconstructive Surgery
DX: Z12.11 Encounter for screening for malignant neoplasm of colon (principal); K57.30 Diverticulosis of large intestine without perforation or abscess without bleeding; K64.0 First degree hemorrhoids; K29.50 Unspecified chronic gastritis without bleeding; E66.01 Morbid (severe) obesity due to excess calories; K21.9 Gastro-esophageal reflux disease without esophagitis; Z80.0 Family history of malignant neoplasm of digestive organs; Z86.010 Personal history of colon polyps; Z87.891 Personal history of nicotine dependence; Z88.0 Allergy status to penicillin; Z88.1 Allergy status to other antibiotic agents; Z88.2 Allergy status to sulfonamides; Z90.49 Acquired absence of other specified parts of digestive tract; Z91.040 Latex allergy status; Z79.899 Other long term (current) drug therapy; Z68.43 Body mass index [BMI] 50.0-59.9, adult
CPT/HCPCS: 88305; 45378; 43239; J2250; J2001; J2704

== ENCOUNTER → 2023-11-16 | Outpatient (CLI) | payer MEDICAID ==
--- NOTE | 2023-11-20 04:54 | MR ---
EXAMINATION TYPE: MR shoulder LT wo con DATE OF EXAM: 11/16/2023 COMPARISON: Left shoulder x-ray February 23, 2020 HISTORY: Left shoulder pain with difficulty raising arm overhead since fall 05-08-23 TECHNIQUE: Multiplanar, multisequence imaging of the left shoulder is performed without contrast. FINDINGS: Rotator Cuff: Heterogeneous increased signal in the infraspinatus and to greater degree involving the supraspinatus tendon. Partial full-thickness tear involving some of the anterior fibers supraspinatu s tendon measuring 5 mm AP diameter sagittal image 9. More prominent fluid involving the subdeltoid/s ubacromial bursa Subscapularis tendon intact. Rotator cuff muscle bulk preserved. Acromioclavicular Joint: Mild to moderate narrowing with moderate superior capsular hypertrophy. Dist al acromion morphology unremarkable. Glenohumeral Joint: Moderate size joint effusion. Narrowing is seen. No significant spurring. Labrum: The labrum appears grossly intact given limitation of non-arthrogram study. Biceps Tendon: The long head of biceps is in normal location within bicipital groove. Bone marrow signal: No focal abnormal marrow signal is appreciated. Other: No additional significant abnormality is appreciated. IMPRESSION: 1. Tendinosis of the infraspinatus tendon. More prominent tendinosis and partial tearing of the supra spinatus tendon. Moderate subdeltoid/subacromial fluid collection. No labral tear.
== END | disposition home or self-care (01) ==
LOC: RADMRIMAIN 16:31
PROVIDERS: ATTEND Orthopaedic Surgery Hand Surgery
DX: M67.814 Other specified disorders of tendon, left shoulder (principal); M75.112 Incomplete rotator cuff tear or rupture of left shoulder, not specified as traumatic; M75.102 Unspecified rotator cuff tear or rupture of left shoulder, not specified as traumatic; M75.22 Bicipital tendinitis, left shoulder; W19.XXXA Unspecified fall, initial encounter

== ENCOUNTER → 2024-02-08 | Outpatient (CLI) | payer MEDICAID ==
[2024-02-08 12:47] LABS: INR 0.9 (<1.2); Prothrombin Time 9.7 sec (10.0-12.5)
[2024-02-08 12:50] LABS: Partial Thromboplastin Time 19.7 sec (22.0-30.0)
[2024-02-08 17:20] LABS: LDL Cholesterol,Calculated 176.6 mg/dL (0.0-131.0)
[2024-02-08 17:21] LABS: % Iron Saturation 20.55 (12.00-45.00); ALT 30 U/L (8-44); AST 18 U/L (13-35); Albumin 4.2 g/dL (3.8-4.9); Albumin/Globulin Ratio 1.62 Ratio (1.60-3.17); Alkaline Phosphatase 88 U/L (41-126); BUN/Creat Ratio 16.29 Ratio (12.00-20.00); Blood Urea Nitrogen 11.4 mg/dL (9.0-27.0); Calcium 9.7 mg/dL (8.7-10.3); Carbon Dioxide 26.6 mmol/L (21.6-31.8); Chloride 105 mmol/L (96-109); Ferritin 66.5 ng/mL (10.0-291.0); Globulin 2.6 g/dL (1.6-3.3); Glucose 96 mg/dL (70-110); Iron 75 UG/DL (50-170); Magnesium 2.1 mg/dL (1.5-2.4); Phosphorus 2.6 mg/dL (2.4-5.1); Potassium 3.8 mmol/L (3.5-5.5); Sodium 143 mmol/L (135-145); Total Bilirubin 0.5 mg/dL (0.3-1.2); Total Iron Binding Capacity 365 UG/DL (228-460); Total Protein 6.8 g/dL (6.2-8.2)
[2024-02-08 17:27] LABS: HCT 44.9 % (37.2-46.3); HGB 14.2 g/dL (12.0-15.0); MCH 28.2 pg (27.0-32.0); MCHC 31.6 g/dL (32.0-37.0); MCV 89.1 FL (80.0-97.0); Mean Platelet Volume 12.1 FL (9.5-12.2); NRBC Per 100 WBC 0 X 10*3/uL (0.00-0.01); Platelet Count 248 X 10*3/uL (140-440); RBC 5.04 X 10*6/uL (4.10-5.20); RDW 15.1 % (11.5-14.5); WBC 8.05 X 10*3/uL (4.50-10.00)
[2024-02-09 08:36] LABS: Zinc, Serum 68 ug/dL (60-130)
[2024-02-10 06:25] LABS: Vit B1(Thiamine) 82 ug/L (38-122)
[2024-02-10 07:00] LABS: Vitamin A 53 ug/dL (38-106)
== END | disposition home or self-care (01) ==
LOC: LABWHC1 10:55
PROVIDERS: ATTEND Surgery Plastic and Reconstructive Surgery
DX: E66.01 Morbid (severe) obesity due to excess calories (principal); D50.8 Other iron deficiency anemias; E44.0 Moderate protein-calorie malnutrition; E89.1 Postprocedural hypoinsulinemia; K91.2 Postsurgical malabsorption, not elsewhere classified; E44.1 Mild protein-calorie malnutrition; E45 Retarded development following protein-calorie malnutrition; E46 Unspecified protein-calorie malnutrition; E55.9 Vitamin D deficiency, unspecified; K74.1 Hepatic sclerosis; N19 Unspecified kidney failure; T56.894A Toxic effect of other metals, undetermined, initial encounter; K50.90 Crohn's disease, unspecified, without complications
CPT/HCPCS: 36415; 80053; 80061; 80307; 80323; 82306; 82525; 82607; 82728; 82746; 83036; 83540; 83550; 83735; 83970; 84100; 84255; 84425; 84443; 84590; 84630; 85027; 85610; 85730; 93005

== ENCOUNTER → 2024-02-16 | Outpatient (CLI) | payer MEDICAID ==
[2024-02-16 09:06] VITALS: BP 138/99; PULSE 88; RESP 17; TEMP 98.1
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
== END ==
LOC: WWCWWP 08:25
PROVIDERS: ATTEND Obstetrics & Gynecology
DX: Z01.419 Encounter for gynecological examination (general) (routine) without abnormal findings (principal); R03.0 Elevated blood-pressure reading, without diagnosis of hypertension; Z78.0 Asymptomatic menopausal state; Z80.41 Family history of malignant neoplasm of ovary; Z80.3 Family history of malignant neoplasm of breast; Z91.040 Latex allergy status; Z88.5 Allergy status to narcotic agent; Z88.0 Allergy status to penicillin; Z88.2 Allergy status to sulfonamides; Z87.891 Personal history of nicotine dependence; Z98.51 Tubal ligation status

== ENCOUNTER → 2024-03-04 | Outpatient (CLI) | payer MEDICAID ==
--- NOTE | 2024-03-05 07:41 | US ---
EXAMINATION TYPE: US pelvis complete transvag DATE OF EXAM: 03/04/2024 COMPARISON: NONE CLINICAL INDICATION: Female, 53 years old with history of Z80.41 FAMILY HX OVARIAN CA; TECHNIQUE: . Transabdominal sonographic images of the pelvis were acquired. Transvaginal sonograph ic images were medically necessary to better assess the following anatomy: Uterus Date of LMP: 2018 EXAM MEASUREMENTS: Uterus: 7.1 x 3.3 x 5.9 cm Endometrial Stripe: Unable to identify cm Right Ovary: 1.9 x 2.0 x 1.9 cm Left Ovary: 2.3 x 1.7 x 1.6 cm 1. Uterus: Anteverted wnl 2. Endometrium: NA 3. Right Ovary: wnl 4. Left Ovary: wnl 5. Bilateral Adnexa: wnl 6. Posterior cul-de-sac: wnl Uterine echotexture is coarse consistent with fibroid changes without focal fibroid mass. IMPRESSION: 1. Echotexture of the uterus consistent with fibroid change without focal mass. Endometrial stripe is not well visualized. 2. No ovarian mass. Ovaries normal bilaterally. 3. No free fluid in the cul-de-sac.
== END | disposition home or self-care (01) ==
LOC: RADUSWWP 15:28
PROVIDERS: ATTEND Obstetrics & Gynecology
DX: N85.8 Other specified noninflammatory disorders of uterus (principal); Z80.41 Family history of malignant neoplasm of ovary
CPT/HCPCS: 76830; 76856

== ENCOUNTER → 2024-04-18 | Outpatient (CLI) | payer MEDICAID ==
[2024-04-18 13:19] VITALS: BMI 52.1
== END ==
LOC: BARWHC3 12:55
PROVIDERS: ATTEND Surgery Plastic and Reconstructive Surgery
DX: E66.01 Morbid (severe) obesity due to excess calories (principal); Z71.3 Dietary counseling and surveillance; Z68.43 Body mass index [BMI] 50.0-59.9, adult; Z91.040 Latex allergy status; Z88.5 Allergy status to narcotic agent; Z88.0 Allergy status to penicillin; Z88.2 Allergy status to sulfonamides; Z87.891 Personal history of nicotine dependence
CPT/HCPCS: 97804

== ENCOUNTER → 2024-05-13 | Outpatient (CLI) | payer MEDICAID ==
--- NOTE | 2024-05-13 12:14 | XR ---
EXAMINATION TYPE: XR chest 2V DATE OF EXAM: 05/13/2024 10:08 AM CLINICAL INDICATION:Female, 53 years old with history of Z11.1 ENCOUNTER FOR SCREENING FOR RESPIRATOR Y TUBE; [facility] COMPARISON: Chest radiographs from 07/04/2021 TECHNIQUE: XR chest 2V Frontal view of the chest. FINDINGS: Lungs/Pleura: There is no evidence of pleural effusion, focal consolidation, or pneumothorax. Pulmonary vascularity: Unremarkable. Heart/mediastinum: Cardiomediastinal silhouette is unremarkable. Musculoskeletal: No acute osseous pathology. IMPRESSION: No acute cardiopulmonary disease/process.
== END | disposition home or self-care (01) ==
LOC: RADXRMAIN 09:54
PROVIDERS: ATTEND Family Medicine
DX: Z11.1 Encounter for screening for respiratory tuberculosis (principal)
CPT/HCPCS: 71046

== ENCOUNTER → 2024-06-09 | Outpatient (CLI) | payer MEDICAID ==
[2024-06-09 18:20] LABS: Basophils # (A) 0.08 X 10*3/uL (0.00-0.10); Basophils % (A) 1.1 %; Eosinophils # (A) 0.15 X 10*3/uL (0.04-0.35); HCT 44.5 % (37.2-46.3); HGB 14.1 g/dL (12.0-15.0); Lymphocytes # (A) 2.53 X 10*3/uL (0.90-5.00); Lymphocytes % (A) 33.6 %; MCH 27.3 pg (27.0-32.0); MCHC 31.7 g/dL (32.0-37.0); MCV 86.1 FL (80.0-97.0); Mean Platelet Volume 12.1 FL (9.5-12.2); Monocytes # (A) 0.45 X 10*3/uL (0.20-1.00); NRBC Per 100 WBC 0 X 10*3/uL (0.00-0.01); Neutrophils # (A) 4.27 X 10*3/uL (1.80-7.70); Neutrophils % (A) 56.8 %; Platelet Count 222 X 10*3/uL (140-440); RBC 5.17 X 10*6/uL (4.10-5.20); RDW 14.4 % (11.5-14.5); WBC 7.52 X 10*3/uL (4.50-10.00)
[2024-06-09 18:28] LABS: ALT 37 U/L (8-44); AST 31 U/L (13-35); Albumin 4.4 g/dL (3.8-4.9); Albumin/Globulin Ratio 1.69 Ratio (1.60-3.17); Alkaline Phosphatase 98 U/L (41-126); BUN/Creat Ratio 23.86 Ratio (12.00-20.00); Blood Urea Nitrogen 16.7 mg/dL (9.0-27.0); Calcium 9.4 mg/dL (8.7-10.3); Chloride 105 mmol/L (96-109); Globulin 2.6 g/dL (1.6-3.3); Glucose 87 mg/dL (70-110); Potassium 4.7 mmol/L (3.5-5.5); Sodium 141 mmol/L (135-145); Total Bilirubin 0.5 mg/dL (0.3-1.2)
== END | disposition home or self-care (01) ==
LOC: LABPAT 11:19
PROVIDERS: ATTEND Surgery Plastic and Reconstructive Surgery
DX: Z01.812 Encounter for preprocedural laboratory examination (principal)
CPT/HCPCS: 80053; 85025; 86850; 86900; 86901

== ENCOUNTER 2024-06-13 06:59 | Inpatient (IN) | payer MEDICAID ==
[~2024-06-13 06:59] MED LIST changes: -LACTATED RINGERS 1,000 ML IV SCH; +ceFAZolin 3 GM in SODIUM CHLORIDE 0.9% 100 ML IVPB PRN
[2024-06-13 07:47] VITALS: BP 144/72; PULSE 78; RESP 18; TEMP 97.1
[2024-06-13 08:01] LABS: Glucose,Whole Blood 85 mg/dL (70-110)
[2024-06-13] MEDS: ONDANSETRON 4 MG/2 ML VIAL IVP PRN (08:02)
[2024-06-13] MEDS: DEXAMETHASONE SOD PHOSPHATE 4 MG/ML 1 ML VIAL IVP STA (08:03)
[2024-06-13] MEDS: ALVIMOPAN 12 MG CAPSULE PO PRN (08:05)
[2024-06-13] MEDS: ACETAMINOPHEN TAB 500 MG TAB PO PRN (08:05)
[2024-06-13] MEDS: SCOPOLAMINE 1 MG/72 HR PATCH TRANSDERM STA (08:06)
[2024-06-13] MEDS: CHLORHEXIDINE GLUCONATE 15 ML CUP MUCOUS MEM STA (08:06)
[2024-06-13] MEDS: PANTOPRAZOLE 40 MG/10 ML VIAL IVP STA (08:06)
[2024-06-13] MEDS: IV FLUID CONTINUATION 1,000 ML IV ONE (08:08)
[2024-06-13] MEDS: LACTATED RINGERS 1,000 ML BAG IV STA (08:09)
[2024-06-13] MEDS: MIDAZOLAM 2 MG/2 ML VIAL IV ONE (08:21)
[2024-06-13] MEDS: fentaNYL (PF) 50 MCG/ML 2 ML AMP IVP STA (08:23)
[2024-06-13] MEDS: HEPARIN SODIUM,PORCINE 5,000 UNIT/ML 1 ML VIAL SQ PRN (08:25)
--- NOTE | 2024-06-13 09:06 | P.ANPRN ---
Procedure Note - Anesthesia - Nerve Block Performed Bilateral Erector Spinae Single Time Out Performed: Yes Date of Procedure: 06/13/24 Procedure Start Time: : Procedure Stop Time: Location of Patient: PreOp Indication: Acute Post-Operative Pain, Requested by Surgeon Sedation Type: Sedate with meaningful contact maintained Preparation: Sterile Prep Position: Prone Needle Types: Pajunk Needle Gauge: 21 Ultrasound used to visualize needle placement: Yes Ultrasound used to observe medication spread: Yes Injectate: 0.5% Ropivacaine (see comment for volume) (20 ml + 10 ml NS + 4 mg Dexamethasone per side) Blood Aspirated: No Pain Paresthesia on Injection Noted: No Resistance on Injection: Normal Image Stored and Saved: Yes Events: Uneventful and Well Tolerated
[2024-06-13] MEDS ORDERED: ONDANSETRON 4 MG/2 ML VIAL ONE (14:43)
[2024-06-13] MEDS ORDERED: PANTOPRAZOLE 40 MG/10 ML VIAL ONE (21:41)
[2024-06-14] MEDS ORDERED: PANTOPRAZOLE 40 MG/10 ML VIAL ONE (09:21)
[2024-06-14] MEDS ORDERED: ONDANSETRON 4 MG/2 ML VIAL ONE (15:00)
== END 2024-06-14 19:30 | disposition home health service (06) | DRG 621 ==
LOC: 2ORMAIN 06:59
PROVIDERS: ADMIT Surgery Plastic and Reconstructive Surgery; ATTEND Surgery Plastic and Reconstructive Surgery
PROC: 3E0T3BZ Introduction of Anesthetic Agent into Peripheral Nerves and Plexi, Percutaneous Approach (ICD-10-PCS; principal; 2024-06-13)
PROC: 3E0T33Z Introduction of Anti-inflammatory into Peripheral Nerves and Plexi, Percutaneous Approach (ICD-10-PCS; 2024-06-13)
PROC: 0D164ZA Bypass Stomach to Jejunum, Percutaneous Endoscopic Approach (ICD-10-PCS; 2024-06-13)
DX: E66.01 Morbid (severe) obesity due to excess calories (principal); Z68.43 Body mass index [BMI] 50.0-59.9, adult; G89.18 Other acute postprocedural pain; I10 Essential (primary) hypertension; M19.90 Unspecified osteoarthritis, unspecified site; K21.9 Gastro-esophageal reflux disease without esophagitis; Z83.49 Family history of other endocrine, nutritional and metabolic diseases

== ENCOUNTER → 2024-06-17 | Outpatient (CLI) | payer MEDICAID | LOC: PROCWHC3 09:45 | PROVIDERS: ATTEND Surgery Plastic and Reconstructive Surgery | DX: Z53.9 Procedure and treatment not carried out, unspecified reason (principal) ==

== ENCOUNTER → 2024-07-05 | Outpatient (CLI) | payer MEDICAID ==
[~2024-07-05] MED LIST changes: +SODIUM CHLORIDE 0.9% 500 ML 500 ML in EMPTY BAG 1 BAG IV PRN; -ceFAZolin 3 GM in SODIUM CHLORIDE 0.9% 100 ML IVPB PRN
[2024-07-05] MEDS: SODIUM CHLORIDE 0.9% 1,000 ML IV SCH (07:35)
[2024-07-05 07:39] VITALS: BP 114/78; PULSE 73; RESP 16; TEMP 97.9
== END ==
LOC: PROCWHC3 07:09
PROVIDERS: ATTEND Surgery Plastic and Reconstructive Surgery
DX: E86.0 Dehydration
CPT/HCPCS: 96360; 96361

== ENCOUNTER → 2024-07-08 | Outpatient (CLI) | payer MEDICAID ==
[2024-07-08 14:09] LABS: Partial Thromboplastin Time 23.4 sec (22.0-30.0); Prothrombin Time 11.1 sec (10.0-12.5)
[2024-07-08 18:38] LABS: HCT 41.6 % (37.2-46.3); HGB 13.4 g/dL (12.0-15.0); MCH 27.9 pg (27.0-32.0); MCHC 32.2 g/dL (32.0-37.0); MCV 86.5 FL (80.0-97.0); Mean Platelet Volume 13.8 FL (9.5-12.2); NRBC Per 100 WBC 0 X 10*3/uL (0.00-0.01); Platelet Count 160 X 10*3/uL (140-440); RBC 4.81 X 10*6/uL (4.10-5.20); RDW 15.7 % (11.5-14.5); WBC 6.95 X 10*3/uL (4.50-10.00)
[2024-07-08 20:32] LABS: % Iron Saturation 20.75 (12.00-45.00); ALT 37 U/L (8-44); AST 28 U/L (13-35); Albumin 3.9 g/dL (3.8-4.9); Albumin/Globulin Ratio 1.86 Ratio (1.60-3.17); Alkaline Phosphatase 86 U/L (41-126); BUN/Creat Ratio 18.33 Ratio (12.00-20.00); Calcium 9.2 mg/dL (8.7-10.3); Chloride 119 mmol/L (96-109); Globulin 2.1 g/dL (1.6-3.3); Glucose 100 mg/dL (70-110); Iron 55 UG/DL (50-170); LDL Cholesterol,Calculated 95.8 mg/dL (0.0-131.0); Magnesium 1.8 mg/dL (1.5-2.4); Phosphorus 3.3 mg/dL (2.4-5.1); Potassium 3.5 mmol/L (3.5-5.5); Sodium 158 mmol/L (135-145); Total Bilirubin 0.5 mg/dL (0.3-1.2); Total Iron Binding Capacity 265 UG/DL (228-460)
[2024-07-08 21:31] LABS: Prealbumin 14.8 mg/dL (18.0-42.0)
[2024-07-12 12:52] LABS: Zinc, Serum 119 ug/dL (60-130)
[2024-07-13 06:17] LABS: Vitamin A 29 ug/dL (38-106)
[2024-07-15 06:57] LABS: Vit B1(Thiamine) 36 ug/L (38-122)
[2024-07-21 22:41] LABS: Selenium 76 mcg/L (63-160)
== END | disposition home or self-care (01) ==
LOC: LABWHC1 12:23
PROVIDERS: ATTEND Surgery Plastic and Reconstructive Surgery
DX: E66.01 Morbid (severe) obesity due to excess calories
CPT/HCPCS: 36415; 80053; 80061; 82306; 82525; 82607; 82728; 82746; 83036; 83540; 83550; 83735; 83970; 84100; 84134; 84255; 84425; 84443; 84590; 84630; 85027; 85610; 85730

== ENCOUNTER 2024-07-10 13:46 | Emergency (ER) | payer MEDICAID ==
[2024-07-10 13:56] VITALS: RESP 16
--- NOTE | 2024-07-10 14:31 | ED ---
General Adult HPI - General Chief complaint: Recheck/Abnormal Lab/Rx Stated complaint: dehydration/weakness Time Seen by Provider: 07/10/24 14:00 Source: patient, RN notes reviewed, old records reviewed Mode of arrival: ambulatory Limitations: no limitations - History of Present Illness Initial comments: This is a 53-year-old female who presents to the emergency department complaining of nausea and generalized weakness. Patient states this has been o ngoing since she had bariatric surgery on June 13. Patient had lab work done recently and had an elevated sodium at 158 so she came in because she thinks she is dehydrated because she has not been drinking as much fluid as she should because she is so nauseated. Patient states she is only vomited 1 time. Patient denies any fever or chills. Patient is not confused but feels like she has to concentrate to understand issues at hand. - Related Data Home Medications Medication Instructions Recorded Confirmed Magnesium 500 mg PO HS 09/11/20 07/05/24 Atogepant [Qulipta] 60 mg PO DAILY 11/11/23 07/05/24 Calcium Carbonate/Vitamin D3 1 each PO DAILY 11/11/23 07/05/24 [Calcium 500 mg-Vit D3 5 mcg (200 Unit)] Fluticasone Propionate [Flonase 1 spray EA NOSTRIL BID 11/11/23 07/05/24 Allergy Relief] Levocetirizine Dihydrochloride 10 mg PO DAILY 11/11/23 07/05/24 Multivitamin [Multivitamins Adult 1 each PO DAILY 11/11/23 07/05/24 Gummies] Omeprazole [PriLOSEC] 40 mg PO DAILY 11/11/23 07/05/24 valACYclovir HCL [Valtrex] 500 mg PO BID PRN 05/25/24 07/05/24 Acetaminophen [Tylenol Extra 1,000 mg PO DAILY PRN 06/09/24 07/05/24 Strength] Allergies Allergy/AdvReac Type Severity Reaction Status Date / Time latex Allergy Severe Rash/Hives/Lips Verified 07/10/24 13:56 swell codeine Allergy Rash/Hives Verified 07/10/24 13:56 Penicillins Allergy Rash/Hives Verified 07/10/24 13:56 Sulfa (Sulfonamide Allergy blisters Verified 07/10/24 13:56 Antibiotics) Review of Systems ROS Statement: Those systems with pertinent positive or pertinent negative responses have been documented in the HPI. ROS Other: All systems not noted in ROS Statement are negative. Past Medical History Past Medical History: GERD/Reflux, Hyperlipidemia Additional Past Medical History / Comment(s): PVC's,migraines,polyneuropathy. Environmental allergies. 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 No other history of STDs. Tested negative for the BRCA1 mutation History of Any Multi-Drug Resistant Organisms: None Reported Past Surgical History: Bariatric Surgery, Section, Cholecystectomy, Orthopedic Surgery, Tubal Ligation, Uterine Ablation Additional Past Surgical History / Comment(s): D&C, right foot surgery, ankle surgery right 2021. section x 2. colonoscopy 2023(next after 5yr). Gastric Bypass 06-13-24 Past Anesthesia/Blood Transfusion Reactions: No Reported Reaction Additional Past Anesthesia/Blood Transfusion Reaction / Comment(s): no blood transfusion Past Psychological History: No Psychological Hx Reported Smoking Status: Former smoker Past Alcohol Use History: Rare Past Drug Use History: None Reported - Past Family History Mother Family Medical History: Thyroid Disorder Sister(s) Family Medical History: Cancer, Deep Vein Thrombosis (DVT) Additional Family Medical History / Comment(s): Sister had ovarian, breast and skin cancer . BRCA1+, Carries breast and ovarian CA gene and blood clot gene Father Additional Family Medical History / Comment(s): +BRCA1 gene. Paternal aunt had ovarian cancer and another paternal aunt had breast cancer. Paternal grandfather had either colon or prostate cancer. Brother(s) Family Medical History: Cancer Additional Family Medical History / Comment(s): Skin cancer. Positive for the BRCA1 gene mutation. General Exam - General Exam Comments Initial Comments: GENERAL: Patient is well-developed and well-nourished. Patient is nontoxic and well- hydrated and is in no acute distress. ENT: Neck is soft and supple. No significant lymphadenopathy is noted. Oropharynx is clear. Moist mucous membranes. Neck has full range of motion without eliciting any pain. EYES: The sclera were anicteric and conjunctiva were pink and moist. Extraocular movements were intact and pupils were equal round and reactive to light. Eyelids were unremarkable. PULMONARY: Unlabored respirations. Good breath sounds bilaterally. No audible rales rhonchi or wheezing was noted. CARDIOVASCULAR: There is a regular rate and rhythm without any murmurs gallops or rubs. ABDOMEN: Soft and nontender with normal bowel sounds. SKIN: Skin is clear with no lesions or rashes and otherwise unremarkable. NEUROLOGIC: Patient is alert and oriented x3. Cranial nerves II through XII are grossly intact. Motor and sensory are also intact. Normal speech, volume and content. Symmetrical smile. MUSCULOSKELETAL: Normal extremities with adequate strength and full range of motion. No lower extremity swelling or edema. No calf tenderness. LYMPHATICS: No significant lymphadenopathy is noted PSYCHIATRIC: Normal psychiatric evaluation. Limitations: no limitations Course Vital Signs 07/10/24 07/10/24 13:52 15:39 Temperature 97.7 F 97.9 F Pulse Rate 80 59 L Respiratory 16 16 Rate Blood Pressure 152/92 110/54 O2 Sat by Pulse 96 99 Oximetry Medical Decision Making - Medical Decision Making EKG is interpreted by myself. EKG shows a sinus rhythm at 65 bpm WA interval is 167 QRS is 88 QT interval is 385 QTc is 396. Patient's EKG shows no ST segment ovation or depression Was pt. sent in by a medical professional or institution (, PA, CISSP, urgent ca re, hospital, or care home...) When possible be specific @ -No Did you speak to anyone other than the patient for history (EMS, parent, family, police, friend...)? What history was obtained from this source @ -No Did you review nursing and triage notes (agree or disagree)? Why? @ -I reviewed and agree with nursing and triage notes Were old charts reviewed (outside hosp., previous admission, EMS record, old EKG, old radiological studies, urgent care reports/EKG's, care home records)? Report findings @ -No old charts were reviewed Differential Diagnosis? @ -Differential Weakness: Hypoglycemia, shock, sepsis, hyponatremia, anemia, infection, AL, ETOH, adverse medicine reaction, overdose, stroke, this is not meant to be an all-inclusive list. EKG interpreted by me (3pts min.). @ -As above X-rays interpreted by me (1pt min.). @ -None done CT interpreted by me (1pt min.). @ -None done U/S interpreted by me (1pt. min.). @ -None done What testing was considered but not performed or refused? (CT, X-rays, U/S, labs)? Why? @ -None What meds were considered but not given or refused? Why? @ -None Did you discuss the management of the patient with other professionals (professionals i.e. , PA, CISSP, lab, RT, psych nurse, social services designee, non morse intercept technician, teacher, money position officer, case repairer)? Give summary @ -No Was smoking cessation discussed for >3mins.? @ -No Was critical care preformed (if so, how long)? @ -No Were there social determinants of health that impacted care today? How? (Martha elessness, low income, unemployed, alcoholism, drug addiction, transportation, low edu. Level, literacy, decrease access to med. care, intermediate, rehab)? @ -No Was there de-escalation of care discussed even if they declined (Discuss DNR or withdrawal of care, Hospice)? DNR status @ -No What co-morbidities impacted this encounter? (DM, HTN, Smoking, COPD, CAD, Cancer, CVA, ARF, Chemo, Hep., AIDS, mental health diagnosis, sleep apnea, morbid obesity)? @ -None Was patient admitted / discharged? Hospital course, mention meds given and route, prescriptions, significant lab abnormalities, going to OR and other pertinent info. @ -Patient's sodium was normal at 139. Patient did receive fluids and Zofran and felt considerably better I went back and reevaluated her she felt comfortable going home and following up as an outpatient Undiagnosed new problem with uncertain prognosis? @ -No Drug Therapy requiring intensive monitoring for toxicity (Heparin, Nitro, Insulin, Cardizem)? @ -No Were any procedures done? @ -No Diagnosis/symptom? @ -Dehydration Acute, or Chronic, or Acute on Chronic? @ -Acute Uncomplicated (without systemic symptoms) or Complicated (systemic symptoms)? @ -Default Side effects of treatment? @ -No Exacerbation, Progression, or Severe Exacerbation? @ -No Poses a threat to life or bodily function? How? (Chest pain, USA, AL, pneumonia, PE, COPD, DKA, ARF, appy, cholecystitis, CVA, Diverticulitis, Homicidal, Suicidal, threat to staff... and all critical care pts) @ -No - Lab Data Result diagrams: 07/10/24 14:27 07/10/24 14:27 Lab Results 09/01/24 09/01/24 Range/Units 14:27 14:27 WBC 6.6 (3.8-10.6) k/uL RBC 4.90 (3.80-5.40) m/uL Hgb 13.9 (11.4-16.0) gm/dL Hct 41.5 (34.0-46.0) % MCV 84.6 (80.0-100.0) fL MCH 28.3 (25.0-35.0) pg MCHC 33.4 (31.0-37.0) g/dL RDW 15.3 (11.5-15.5) % Plt Count 175 (150-450) k/uL MPV 9.9 Neutrophils % 48 % Lymphocytes % 39 % Monocytes % 5 % Eosinophils % 6 % Basophils % 1 % Neutrophils # 3.1 (1.3-7.7) k/uL Lymphocytes # 2.6 (1.0-4.8) k/uL Monocytes # 0.3 (0-1.0) k/uL Eosinophils # 0.4 (0-0.7) k/uL Basophils # 0.1 (0-0.2) k/uL Sodium 139 (137-145) mmol/L Potassium 4.0 (3.5-5.1) mmol/L Chloride 107 (98-107) mmol/L Carbon Dioxide 21 L (22-30) mmol/L Anion Gap 11 mmol/L BUN 10 (7-17) mg/dL Creatinine 0.51 L (0.52-1.04) mg/dL Est GFR (CKD-EPI)AfAm >90 (>60 ml/min/1.73 sqM) Est GFR (CKD-EPI)NonAf >90 (>60 ml/min/1.73 sqM) Glucose 81 (74-99) mg/dL Calcium 9.3 (8.4-10.2) mg/dL Total Bilirubin 1.0 (0.2-1.3) mg/dL AST 40 H (14-36) U/L ALT 37 H (4-34) U/L Alkaline Phosphatase 84 (38-126) U/L Total Protein 6.6 (6.3-8.2) g/dL Albumin 4.0 (3.5-5.0) g/dL Disposition Clinical Impression: Dehydration Disposition: HOME SELF-CARE Condition: Good Instructions (If sedation given, give patient instructions): Dehydration (ED) Is patient prescribed a controlled substance at d/c from ED?: No Referrals: Trent Claros MD [Primary Care Provider] - 1-2 days Time of Disposition: 15:48
[2024-07-10] MEDS: SODIUM CHLORIDE 0.9% 1,000 ML IV ONE (14:34)
[2024-07-10] MEDS: ONDANSETRON 4 MG/2 ML VIAL IVP STA (14:34)
[2024-07-10 14:42] LABS: Basophils # (A) 0.1 k/uL (0-0.2); Basophils % (A) 1 %; Eosinophils # (A) 0.4 k/uL (0-0.7); Eosinophils % (A) 6 %; HCT 41.5 % (34.0-46.0); HGB 13.9 gm/dL (11.4-16.0); Lymphocytes # (A) 2.6 k/uL (1.0-4.8); Lymphocytes % (A) 39 %; MCH 28.3 pg (25.0-35.0); MCHC 33.4 g/dL (31.0-37.0); MCV 84.6 fL (80.0-100.0); Mean Platelet Volume 9.9; Monocytes # (A) 0.3 k/uL (0-1.0); Monocytes % (A) 5 %; Neutrophils # (A) 3.1 k/uL (1.3-7.7); Neutrophils % (A) 48 %; Platelet Count 175 k/uL (150-450); RDW 15.3 % (11.5-15.5); WBC 6.6 k/uL (3.8-10.6)
[2024-07-10 14:52] LABS: ALT 37 U/L (4-34); AST 40 U/L (14-36); African American GFR (CKD) >90 (>60 ml/min/1.73 sqM); Alkaline Phosphatase 84 U/L (38-126); Anion Gap 11 mmol/L; Blood Urea Nitrogen 10 mg/dL (7-17); Calcium 9.3 mg/dL (8.4-10.2); Carbon Dioxide 21 mmol/L (22-30); Chloride 107 mmol/L (98-107); Glucose 81 mg/dL (74-99); Non-African American GFR(CKD) >90 (>60 ml/min/1.73 sqM); Sodium 139 mmol/L (137-145); Total Protein 6.6 g/dL (6.3-8.2)
[2024-07-10 15:40] VITALS: BP 110/54; PULSE 59; TEMP 97.9
== END 2024-07-10 15:40 | disposition home or self-care (01) ==
LOC: EC 13:46
DX: E86.0 Dehydration (principal); Z91.040 Latex allergy status; Z88.2 Allergy status to sulfonamides; Z87.891 Personal history of nicotine dependence; Z88.0 Allergy status to penicillin; Z88.1 Allergy status to other antibiotic agents; Z88.5 Allergy status to narcotic agent
CPT/HCPCS: 36415; 93005; 83930; 80053; 85025; 99285; 96374; 96361; J2405

== ENCOUNTER 2024-07-14 13:11 | Day surgery (SDC) | payer MEDICAID ==
[2024-07-14] MEDS: IV FLUID CONTINUATION 1,000 ML IV ONE ×2 (14:12→15:10)
[2024-07-14 14:14] VITALS: TEMP 98.1
--- NOTE | 2024-07-14 15:05 | P.GSHP ---
History of Present Illness H&P Date: 07/14/24 CHIEF COMPLAINT: Dysphagia, history of gastric bypass. HISTORY OF PRESENT ILLNESS: The patient is a 53-year-old female who presents reports dysphagia to solid foods with a history of gastric bypass. Upper endoscopy was offered for further evaluation and management. PAST MEDICAL HISTORY: Please see list. PAST SURGICAL HISTORY: Please see list. MEDICATIONS: Please see list. ALLERGIES: Please see list. SOCIAL HISTORY: No illicit drug use FAMILY HISTORY: No reports of Crohn disease or ulcerative colitis. REVIEW OF ORGAN SYSTEMS: CONSTITUTIONAL: No reports of fevers or chills. GI: Denies any blood in stools or constipation. PHYSICAL EXAM: VITAL SIGNS: Stable GENERAL: Well-developed and pleasant in no acute distress. HEENT: No scleral icterus. Extraocular movements grossly intact. Moist buccal mucosa. NECK: Supple without lymphadenopathy. CHEST: Unlabored respirations. Equal bilateral excursions. CARDIOVASCULAR: Regular rate and rhythm. Distal 2+ pulses. ABDOMEN: Soft, nondistended. MUSCULOSKELETAL: No clubbing, cyanosis, or edema. ASSESSMENT: 1. Dysphagia. 2. History of gastric bypass. PLAN: 1. Recommend proceeding with an upper endoscopy with balloon dilatation. Past Medical History Past Medical History: GERD/Reflux, Hyperlipidemia Additional Past Medical History / Comment(s): PVC's,migraines,polyneuropathy. Environmental allergies. 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 No other history of STDs. Tested negative for the BRCA1 mutation History of Any Multi-Drug Resistant Organisms: None Reported Past Surgical History: Bariatric Surgery, Section, Cholecystectomy, Orthopedic Surgery, Tubal Ligation, Uterine Ablation Additional Past Surgical History / Comment(s): D&C, right foot surgery, ankle surgery right 2021. section x 2. colonoscopy 2023(next after 5yr). Gastric Bypass 06-13-24 Past Anesthesia/Blood Transfusion Reactions: No Reported Reaction Additional Past Anesthesia/Blood Transfusion Reaction / Comment(s): no blood transfusion Past Psychological History: No Psychological Hx Reported Smoking Status: Former smoker Past Alcohol Use History: Rare Additional Past Alcohol Use History / Comment(s): quit smoking 2009,smoked approx 23 yrs,1ppd Past Drug Use History: None Reported - Past Family History Mother Family Medical History: Thyroid Disorder Sister(s) Family Medical History: Cancer, Deep Vein Thrombosis (DVT) Additional Family Medical History / Comment(s): Sister had ovarian, breast and skin cancer . BRCA1+, Carries breast and ovarian CA gene and blood clot gene Father Additional Family Medical History / Comment(s): +BRCA1 gene. Paternal aunt had ovarian cancer and another paternal aunt had breast cancer. Paternal grandfather had either colon or prostate cancer. Brother(s) Family Medical History: Cancer Additional Family Medical History / Comment(s): Skin cancer. Positive for the BRCA1 gene mutation. Medications and Allergies Home Medications Medication Instructions Recorded Confirmed Type Magnesium 500 mg PO HS 09/11/20 07/14/24 History Atogepant [Qulipta] 60 mg PO DAILY 11/11/23 07/14/24 History Calcium Carbonate/Vitamin D3 1 each PO DAILY 11/11/23 07/14/24 History [Calcium 500 mg-Vit D3 5 mcg (200 Unit)] Fluticasone Propionate [Flonase 1 spray EA NOSTRIL BID 11/11/23 07/14/24 History Allergy Relief] Levocetirizine Dihydrochloride 10 mg PO DAILY 11/11/23 07/14/24 History Multivitamin [Multivitamins Adult 1 each PO DAILY 11/11/23 07/14/24 History Gummies] Omeprazole [PriLOSEC] 40 mg PO DAILY 11/11/23 07/14/24 History valACYclovir HCL [Valtrex] 500 mg PO BID PRN 05/25/24 07/14/24 History Acetaminophen [Tylenol Extra 1,000 mg PO DAILY PRN 06/09/24 07/14/24 History Strength] Allergies Allergy/AdvReac Type Severity Reaction Status Date / Time latex Allergy Severe Rash/Hives/Lips Verified 07/14/24 13:47 swell codeine Allergy Rash/Hives Verified 07/14/24 13:47 Penicillins Allergy Rash/Hives Verified 07/14/24 13:47 Sulfa (Sulfonamide Allergy blisters Verified 07/14/24 13:47 Antibiotics) Surgical - Exam Vital Signs Temp Pulse Resp BP Pulse Ox 98.1 F 79 16 133/75 96 07/14/24 13:41 07/14/24 13:41 07/14/24 13:41 07/14/24 13:41 07/14/24 13:41
[2024-07-14] MEDS ORDERED: LIDOCAINE 2% (PF) 20 MG/ML 5 ML VIAL ONE (15:11)
[2024-07-14] MEDS ORDERED: PROPOFOL 10 MG/ML 20 ML VIAL IV ONE (15:11)
--- NOTE | 2024-07-14 15:34 | P.PCN ---
Date of Procedure: 07/14/24 Description of Procedure: PREOPERATIVE DIAGNOSIS: Dysphagia. Nausea with vomiting. POSTOPERATIVE DIAGNOSIS: Dysphagia. Morbid obesity. Gastrojejunal stricture without chronic ulcer without perforation OPERATION: Esophagogastrojejunoscopy with balloon dilatation from 8 mm to 12 mm. SURGEON: Emily Anderson MD ANESTHESIA: MAC. INDICATIONS: The patient is a 53-year-old female who presents with a history of dysphagia, including new-onset nausea and vomiting. Benefits and risks of the procedure were described. Informed consent was obtained. DESCRIPTION: The patient was brought into the endoscopy suite and laid in the left lateral decubitus position. After a timeout was confirmed, the procedure was initiated. An Olympus gastroscope was passed along the posterior oropharynx down to the distal esophagus where the squamocolumnar junction was unremarkable. The gastric pouch was entered. A gastrojejunal stricture of 12 mm was found as the adult gastroscope was 8 mm in size. A [employer] balloon dilator was placed through the scope. Final insufflation up to 20 mm was performed with a total of 2 minutes. The scope was advanced up to 60 cm from the incisors into the Adina limb. The mucosa of the gastrojejunal anastomosis was intact. However no chronic gastrojejunal marginal ulcer was encountered. No full-thickness injury was encountered. The GI tract was desufflated. The patient tolerated the procedure well. FINDINGS: Squamocolumnar junction unremarkable at 40 cm. Stricture of approximately 8 mm encountered. No chronic gastrojejunal ulceration encountered. Successful balloon dilatation to 12 mm. RECOMMENDATIONS: Liquid diet for 24 to 48 hours Carafate 1 g twice daily for 4 weeks Repeat upper endoscopy in 4 to 6 weeks Plan - Discharge Summary New Discharge Prescriptions: New Sucralfate [Carafate] 1 gm PO BID #120 tablet Continue Multivitamin [Multivitamins Adult Gummies] 1 each PO DAILY Fluticasone Propionate [Flonase Allergy Relief] 1 spray EA NOSTRIL BID valACYclovir HCL [Valtrex] 500 mg PO BID PRN PRN Reason: outbreak Omeprazole [PriLOSEC] 40 mg PO DAILY Levocetirizine Dihydrochloride 10 mg PO DAILY Calcium Carbonate/Vitamin D3 [Calcium 500 mg-Vit D3 5 mcg (200 Unit)] 1 each PO DAILY Acetaminophen [Tylenol Extra Strength] 1,000 mg PO DAILY PRN PRN Reason: Pain Discontinued Magnesium 500 mg PO HS Atogepant [Qulipta] 60 mg PO DAILY Discharge Medication List Calcium Carbonate/Vitamin D3 [Calcium 500 mg-Vit D3 5 mcg (200 Unit)] 1 each PO DAILY 11/11/23 [History] Fluticasone Propionate [Flonase Allergy Relief] 1 spray EA NOSTRIL BID 11/11/23 [History] Levocetirizine Dihydrochloride 10 mg PO DAILY 11/11/23 [History] Multivitamin [Multivitamins Adult Gummies] 1 each PO DAILY 11/11/23 [History] Omeprazole [PriLOSEC] 40 mg PO DAILY 11/11/23 [History] valACYclovir HCL [Valtrex] 500 mg PO BID PRN 05/25/24 [History] Acetaminophen [Tylenol Extra Strength] 1,000 mg PO DAILY PRN 06/09/24 [History] Sucralfate [Carafate] 1 gm PO BID #120 tablet 07/14/24 [Rx] [facility]ment[facility]Ref[facility] [place] [place] [facility] - 07/27/24 2:00 pm Patient Instructions/Handouts: Esophageal Stricture (DC), Esophageal Dilation (GEN) Activity/Diet/Wound Care/Special Instructions: Carafate - please melt/crush tablet to make suspension and take twice daily. Discharge Disposition: HOME SELF-CARE
[2024-07-14 16:06] VITALS: BP 106/74; PULSE 72; RESP 15
== END 2024-07-14 16:16 | disposition home or self-care (01) ==
LOC: ORWHC2ENDO 13:11
PROVIDERS: ATTEND Surgery Plastic and Reconstructive Surgery
DX: R13.10 Dysphagia, unspecified (principal); E66.01 Morbid (severe) obesity due to excess calories; E78.5 Hyperlipidemia, unspecified; K21.9 Gastro-esophageal reflux disease without esophagitis; K56.699 Other intestinal obstruction unspecified as to partial versus complete obstruction; Z87.891 Personal history of nicotine dependence; Z88.0 Allergy status to penicillin; Z88.1 Allergy status to other antibiotic agents; Z88.2 Allergy status to sulfonamides; Z90.49 Acquired absence of other specified parts of digestive tract; Z91.040 Latex allergy status; Z98.51 Tubal ligation status; Z98.84 Bariatric surgery status
CPT/HCPCS: 43245

== ENCOUNTER → 2024-07-27 | Outpatient (CLI) | payer MEDICAID ==
[2024-07-27 14:59] VITALS: BP 118/74; PULSE 80; RESP 16; TEMP 98.4; BMI 43.9
--- NOTE | 2024-07-27 15:37 | P.BASOAP ---
Subjective Progress Note Date: 07/27/24 She comes in with nausea daily. She reports recurrent symptoms of stricture. EGD and stricture. She has negative loop in head. She has lost 20 pounds in 1 month. She needs more time. She had her birthday. EGD. She can only tolerate her omeprazole and carafate. Continue warm issues. Objective - Vital Signs Vital signs: Vital Signs Temp 98.4 F 07/27/24 14:54 Pulse 80 07/27/24 14:54 Resp 16 07/27/24 14:54 BP 118/74 07/27/24 14:54 Pulse Ox FiO2 Intake & Output 07/26/24 07/27/24 07/27/24 18:59 06:59 18:59 Weight 124.284 kg Assessment/Plan Plan: Date: 07/27/24 Initial Weight: Initial BMI: Current Weight: 124.284 kg Current BMI: 43.9 Type of Surgery: Total Volume in Band: Previous Volume: Volume Removed: Volume Added: Band Size:
== END ==
LOC: BARWHC3 13:54
PROVIDERS: ATTEND Surgery Plastic and Reconstructive Surgery
DX: E66.01 Morbid (severe) obesity due to excess calories (principal); R11.0 Nausea; Z88.5 Allergy status to narcotic agent; Z88.0 Allergy status to penicillin; Z88.2 Allergy status to sulfonamides; Z91.040 Latex allergy status; Z68.41 Body mass index [BMI] 40.0-44.9, adult; Z87.891 Personal history of nicotine dependence
CPT/HCPCS: 99211

== ENCOUNTER 2024-08-08 09:55 | Day surgery (SDC) | payer MEDICAID ==
--- NOTE | 2024-08-08 05:39 | P.GSHP ---
History of Present Illness H&P Date: 08/08/24 CHIEF COMPLAINT: Esophageal stricture HISTORY OF PRESENT ILLNESS: The patient is a 54-year-old female who presents reports dysphagia. Upper endoscopy was offered for further evaluation and management. PAST MEDICAL HISTORY: Please see list. PAST SURGICAL HISTORY: Please see list. MEDICATIONS: Please see list. ALLERGIES: Please see list. SOCIAL HISTORY: No illicit drug use FAMILY HISTORY: No reports of Crohn disease or ulcerative colitis. REVIEW OF ORGAN SYSTEMS: CONSTITUTIONAL: No reports of fevers or chills. GI: Denies any blood in stools or constipation. PHYSICAL EXAM: VITAL SIGNS: Stable GENERAL: Well-developed and pleasant in no acute distress. HEENT: No scleral icterus. Extraocular movements grossly intact. Moist buccal mucosa. NECK: Supple without lymphadenopathy. CHEST: Unlabored respirations. Equal bilateral excursions. CARDIOVASCULAR: Regular rate and rhythm. Distal 2+ pulses. ABDOMEN: Soft, nondistended. MUSCULOSKELETAL: No clubbing, cyanosis, or edema. ASSESSMENT: 1. Esophageal stricture PLAN: 1. Recommend proceeding with an upper endoscopy with balloon dilation Past Medical History Past Medical History: GERD/Reflux, Hyperlipidemia Additional Past Medical History / Comment(s): REcent issues with nausea and not being to tolerate solids since gastric surgery in Jun, decreased nausea now.2023.PVC's,migraines,polyneuropathy. Environmental allergies. 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 No other history of STDs. Tested negative for the BRCA1 mutation. + covid 07/30/24 History of Any Multi-Drug Resistant Organisms: None Reported Past Surgical History: Bariatric Surgery, Section, Cholecystectomy, Orthopedic Surgery, Tubal Ligation, Uterine Ablation Additional Past Surgical History / Comment(s): D&C, right foot surgery, ankle surgery right 2021. section x 2. colonoscopy 2023(next after 5yr). Gastric Bypass 06-13-24, EGD-Dilatation 07/14/24. Past Anesthesia/Blood Transfusion Reactions: No Reported Reaction Additional Past Anesthesia/Blood Transfusion Reaction / Comment(s): no blood transfusion Smoking Status: Former smoker - Past Family History Mother Family Medical History: Thyroid Disorder Sister(s) Family Medical History: Cancer, Deep Vein Thrombosis (DVT) Additional Family Medical History / Comment(s): Sister had ovarian, breast and skin cancer . BRCA1+, Carries breast and ovarian CA gene and blood clot gene Father Additional Family Medical History / Comment(s): +BRCA1 gene. Paternal aunt had ovarian cancer and another paternal aunt had breast cancer. Paternal grandfather had either colon or prostate cancer. Brother(s) Family Medical History: Cancer Additional Family Medical History / Comment(s): Skin cancer. Positive for the BRCA1 gene mutation. Medications and Allergies Home Medications Medication Instructions Recorded Confirmed Type Calcium Carbonate/Vitamin D3 1 each PO DAILY 11/11/23 08/04/24 History [Calcium 500 mg-Vit D3 5 mcg (200 Unit)] Fluticasone Propionate [Flonase 1 spray EA NOSTRIL BID 11/11/23 08/04/24 History Allergy Relief] Levocetirizine Dihydrochloride 10 mg PO DAILY 11/11/23 08/04/24 History Multivitamin [Multivitamins Adult 1 each PO DAILY 11/11/23 08/04/24 History Gummies] Omeprazole [PriLOSEC] 40 mg PO DAILY 11/11/23 08/04/24 History valACYclovir HCL [Valtrex] 500 mg PO BID PRN 05/25/24 08/04/24 History Acetaminophen [Tylenol Extra 1,000 mg PO DAILY PRN 06/09/24 08/04/24 History Strength] Sucralfate [Carafate] 1 gm PO BID #560 ml 07/27/24 08/04/24 Rx Atogepant [Qulipta] 60 mg PO QAM 07/29/24 08/04/24 History Allergies Allergy/AdvReac Type Severity Reaction Status Date / Time latex Allergy Severe Rash/Hives/Lips Verified 07/29/24 11:56 swell codeine Allergy Rash/Hives Verified 07/29/24 11:56 Penicillins Allergy Rash/Hives Verified 07/29/24 11:56 Sulfa (Sulfonamide Allergy blisters Verified 07/29/24 11:56 Antibiotics)
[2024-08-08] MEDS ORDERED: LIDOCAINE 1% (10MG/ML) FOR IV START INTRADERMA PRN (10:12)
[2024-08-08 10:34] VITALS: TEMP 97.4
[2024-08-08] MEDS: IV FLUID CONTINUATION 1,000 ML IV ONE (10:47)
[2024-08-08] MEDS: LACTATED RINGERS 1,000 ML IV SCH (10:48)
[2024-08-08] MEDS ORDERED: PROPOFOL 10 MG/ML 20 ML VIAL IV ONE (11:55)
[2024-08-08 12:25] VITALS: RESP 16
[2024-08-08 12:47] VITALS: BP 123/74; PULSE 76
--- NOTE | 2024-08-08 12:49 | P.PCN ---
Date of Procedure: 08/08/24 Description of Procedure: PREOPERATIVE DIAGNOSIS: Dysphagia. Nausea with vomiting. POSTOPERATIVE DIAGNOSIS: Dysphagia. Morbid obesity. Gastrojejunal stricture without chronic ulcer without perforation OPERATION: Esophagogastrojejunoscopy with balloon dilatation from 8 to 13.5 mm. SURGEON: Emily Anderson MD ANESTHESIA: MAC. INDICATIONS: The patient is a 54-year-old female who presents with a history of dysphagia, including new-onset nausea and vomiting. Benefits and risks of the procedure were described. Informed consent was obtained. DESCRIPTION: The patient was brought into the endoscopy suite and laid in the left lateral decubitus position. After a timeout was confirmed, the procedure was initiated. An Olympus gastroscope was passed along the posterior oropharynx down to the distal esophagus where the squamocolumnar junction was unremarkable. The gastric pouch was entered. A gastrojejunal stricture of 8 mm was found as the adult gastroscope was 9.5 mm in size. A PhotoThera balloon dilator was placed through the scope. Final insufflation up to 13.5 mm was performed with a total of 2 minutes. The scope was advanced up to 60 cm from the incisors into the Adina limb. The mucosa of the gastrojejunal anastomosis was intact. 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 No full-thickness injury was encountered. The GI tract was desufflated. The patient tolerated the procedure well. FINDINGS: Squamocolumnar junction unremarkable at 37 cm. Stricture of approximately 8 mm encountered. No chronic gastrojejunal ulceration encountered. Successful balloon dilatation to 13.5 mm. RECOMMENDATIONS: Liquid diet. Upper endoscopy as needed. Plan - Discharge Summary Discharge Rx Participant: No New Discharge Prescriptions: Continue Fluticasone Propionate [Flonase Allergy Relief] 1 spray EA NOSTRIL BID Omeprazole [PriLOSEC] 40 mg PO DAILY Acetaminophen [Tylenol Extra Strength] 1,000 mg PO DAILY PRN PRN Reason: Pain Sucralfate [Carafate] 1 gm PO BID #560 ml Discontinued Multivitamin [Multivitamins Adult Gummies] 1 each PO DAILY valACYclovir HCL [Valtrex] 500 mg PO BID PRN PRN Reason: outbreak Atogepant [Qulipta] 60 mg PO QAM Levocetirizine Dihydrochloride 10 mg PO DAILY Calcium Carbonate/Vitamin D3 [Calcium 500 mg-Vit D3 5 mcg (200 Unit)] 1 each PO DAILY Discharge Medication List Fluticasone Propionate [Flonase Allergy Relief] 1 spray EA NOSTRIL BID 11/11/23 [History] Omeprazole [PriLOSEC] 40 mg PO DAILY 11/11/23 [History] Acetaminophen [Tylenol Extra Strength] 1,000 mg PO DAILY PRN 06/09/24 [History] Sucralfate [Carafate] 1 gm PO BID #560 ml 07/27/24 [Rx] Follow up [facility]ment(s[facility] [place] [facility] (Needs upper endoscopy 09/05/2024) Patient Instructions/Handouts: Esophageal Dilation (DC) Activity/Diet/Wound Care/Special Instructions: Soft diet today. Continue omeprazole and Carafate crushed or open tab. Repeat upper endoscopy in 1 month, 09/05/2024 Discharge Disposition: HOME SELF-CARE
== END 2024-08-08 13:12 | disposition home or self-care (01) ==
LOC: ORWHC2ENDO 09:55
PROVIDERS: ATTEND Surgery Plastic and Reconstructive Surgery
DX: K21.00 Gastro-esophageal reflux disease with esophagitis, without bleeding
CPT/HCPCS: 43245

== ENCOUNTER → 2024-09-02 | Outpatient (CLI) | payer MEDICAID ==
[2024-09-02 17:15] LABS: HCT 40.5 % (34.0-46.0); HGB 12.7 gm/dL (11.4-16.0); MCH 27.9 pg (25.0-35.0); MCHC 31.4 g/dL (31.0-37.0); Mean Platelet Volume 10.5; Platelet Count 201 k/uL (150-450); RBC 4.56 m/uL (3.80-5.40); RDW 15.3 % (11.5-15.5); WBC 6.9 k/uL (3.8-10.6)
[2024-09-02 17:25] LABS: INR 0.9 (<1.2); Prothrombin Time 10.5 sec (10.0-12.5)
[2024-09-02 17:26] LABS: ALT 53 U/L (4-34); AST 50 U/L (14-36); African American GFR (CKD) >90 (>60 ml/min/1.73 sqM); Albumin 3.7 g/dL (3.5-5.0); Alkaline Phosphatase 101 U/L (38-126); Anion Gap 8 mmol/L; Blood Urea Nitrogen 11 mg/dL (7-17); Calcium 8.7 mg/dL (8.4-10.2); Carbon Dioxide 25 mmol/L (22-30); Chloride 107 mmol/L (98-107); Glucose 76 mg/dL (74-99); Magnesium 2.1 mg/dL (1.6-2.3); Non-African American GFR(CKD) >90 (>60 ml/min/1.73 sqM); Phosphorus 3.9 mg/dL (2.5-4.5); Potassium 3.3 mmol/L (3.5-5.1); Sodium 140 mmol/L (137-145); Total Bilirubin 1.2 mg/dL (0.2-1.3); Total Protein 6.3 g/dL (6.3-8.2)
[2024-09-03 03:07] LABS: Prealbumin 17.1 mg/dL (18.0-42.0)
[2024-09-03 03:14] LABS: % Iron Saturation 13.16 (12.00-45.00); Chol/HDL Ratio 5.79 Ratio; Iron 45 UG/DL (50-170); LDL Cholesterol,Calculated 162.5 mg/dL (0.0-131.0); Total Iron Binding Capacity 342 UG/DL (228-460)
[2024-09-05 14:31] LABS: Zinc, Serum 91 ug/dL (60-130)
[2024-09-06 11:57] LABS: Vit B1(Thiamine) 27 ug/L (38-122)
== END | disposition home or self-care (01) ==
LOC: LABWHC1 15:02
PROVIDERS: ATTEND Surgery Plastic and Reconstructive Surgery
CPT/HCPCS: 80053; 80061; 82306; 82525; 82607; 82728; 82746; 83036; 83540; 83550; 83735; 83970; 84100; 84134; 84255; 84425; 84443; 84590; 84630; 85027; 85610; 85730

== ENCOUNTER 2024-09-05 06:55 | Day surgery (SDC) | payer MEDICAID ==
[2024-09-05 07:20] VITALS: TEMP 98
[2024-09-05] MEDS: IV FLUID CONTINUATION 1,000 ML IV ONE (07:22)
[2024-09-05] MEDS: LACTATED RINGERS 1,000 ML IV SCH (07:23)
[2024-09-05] MEDS: ONDANSETRON 4 MG/2 ML VIAL IVP STA (07:28)
[2024-09-05] MEDS ORDERED: LIDOCAINE 1% INJ 10MG/ML (20 ML MDV) ONE (07:30)
[2024-09-05] MEDS ORDERED: PROPOFOL 10 MG/ML 20 ML VIAL IV ONE (07:30)
--- NOTE | 2024-09-05 07:37 | P.GSHP ---
History of Present Illness H&P Date: 09/05/24 CHIEF COMPLAINT: Esophageal stricture HISTORY OF PRESENT ILLNESS: The patient is a 54-year-old female who presents reports dysphagia. Upper endoscopy was offered for further evaluation and management. PAST MEDICAL HISTORY: Please see list. PAST SURGICAL HISTORY: Please see list. MEDICATIONS: Please see list. ALLERGIES: Please see list. SOCIAL HISTORY: No illicit drug use FAMILY HISTORY: No reports of Crohn disease or ulcerative colitis. REVIEW OF ORGAN SYSTEMS: CONSTITUTIONAL: No reports of fevers or chills. GI: Denies any blood in stools or constipation. PHYSICAL EXAM: VITAL SIGNS: Stable GENERAL: Well-developed and pleasant in no acute distress. HEENT: No scleral icterus. Extraocular movements grossly intact. Moist buccal mucosa. NECK: Supple without lymphadenopathy. CHEST: Unlabored respirations. Equal bilateral excursions. CARDIOVASCULAR: Regular rate and rhythm. Distal 2+ pulses. ABDOMEN: Soft, nondistended. MUSCULOSKELETAL: No clubbing, cyanosis, or edema. ASSESSMENT: 1. Esophageal stricture PLAN: 1. Recommend proceeding with an upper endoscopy with balloon dilation Past Medical History Past Medical History: GERD/Reflux, Hyperlipidemia Additional Past Medical History / Comment(s): REcent issues with nausea and not being to tolerate solids since gastric surgery in Jun, decreased nausea now.2023.PVC's,migraines,polyneuropathy. Environmental allergies. . Tested negative for the BRCA1 mutation. + covid 07/30/24 History of Any Multi-Drug Resistant Organisms: None Reported Past Surgical History: Bariatric Surgery, Section, Cholecystectomy, Orthopedic Surgery, Tubal Ligation, Uterine Ablation Additional Past Surgical History / Comment(s): D&C, right foot surgery, ankle surgery right 2021. section x 2. colonoscopy 2023(next after 5yr). Gastric Bypass 06-13-24, EGD-Dilatation 07/14/24.and later in jul 2024 Past Anesthesia/Blood Transfusion Reactions: No Reported Reaction Additional Past Anesthesia/Blood Transfusion Reaction / Comment(s): no blood transfusion Smoking Status: Former smoker - Past Family History Mother Family Medical History: Thyroid Disorder Sister(s) Family Medical History: Cancer, Deep Vein Thrombosis (DVT) Additional Family Medical History / Comment(s): Sister had ovarian, breast and skin cancer . BRCA1+, Carries breast and ovarian CA gene and blood clot gene Father Additional Family Medical History / Comment(s): +BRCA1 gene. Paternal aunt had ovarian cancer and another paternal aunt had breast cancer. Paternal grandfathe r had either colon or prostate cancer. Brother(s) Family Medical History: Cancer Additional Family Medical History / Comment(s): Skin cancer. Positive for the BRCA1 gene mutation. Medications and Allergies Home Medications Medication Instructions Recorded Confirmed Type Fluticasone Propionate [Flonase 1 spray EA NOSTRIL BID 11/11/23 09/05/24 History Allergy Relief] Omeprazole [PriLOSEC] 40 mg PO DAILY 11/11/23 09/05/24 History Sucralfate [Carafate] 1 gm PO BID #560 ml 07/27/24 09/05/24 Rx Allergies Allergy/AdvReac Type Severity Reaction Status Date / Time latex Allergy Severe Rash/Hives/Lips Verified 09/05/24 07:21 swell codeine Allergy Rash/Hives Verified 09/05/24 07:21 Penicillins Allergy Rash/Hives Verified 09/05/24 07:21 Sulfa (Sulfonamide Allergy blisters Verified 09/05/24 07:21 Antibiotics) Surgical - Exam Vital Signs Temp Pulse Resp BP Pulse Ox 98.0 F 73 16 138/81 98 09/05/24 07:20 09/05/24 07:20 09/05/24 07:20 09/05/24 07:20 09/05/24 07:20
--- NOTE | 2024-09-05 08:03 | P.PCN ---
Date of Procedure: 09/05/24 Description of Procedure: PREOPERATIVE DIAGNOSIS: Dysphagia. Nausea with vomiting. Gastrojejunal stricture without chronic ulcer without perforation POSTOPERATIVE DIAGNOSIS: Dysphagia. Morbid obesity. Gastrojejunal stricture without chronic ulcer without perforation OPERATION: Esophagogastrojejunoscopy with balloon dilatation from 12 to 20 mm. SURGEON: Emily Anderson MD ANESTHESIA: MAC. INDICATIONS: The patient is a 54-year-old female who presents with a history of dysphagia, including nausea and vomiting. Benefits and risks of the procedure were described. Informed consent was obtained. DESCRIPTION: The patient was brought into the endoscopy suite and laid in the left lateral decubitus position. After a timeout was confirmed, the procedure was initiated. An Olympus gastroscope was passed along the posterior oropharynx down to the distal esophagus where the squamocolumnar junction was unremarkable. The gastric pouch was entered. A gastrojejunal stricture of 12 mm was found as the adult gastroscope was 9.5 mm in size. A Fundera balloon dilator was placed through the scope. Final insufflation up to 20 mm was performed with a total of 2 minutes. The scope was advanced up to 60 cm from the incisors into the Adina limb. The mucosa of the gastrojejunal anastomosis was intact. However no chronic gastrojejunal marginal ulcer was encountered. No full-thickness injury was encountered. The GI tract was desufflated. The patient tolerated the procedure well. FINDINGS: Squamocolumnar junction unremarkable at 37 cm. Stricture of approximately 12 mm encountered. No chronic gastrojejunal ulceration encountered. Successful balloon dilatation to 20 mm. RECOMMENDATIONS: Liquid diet. Upper endoscopy as needed. Plan - Discharge Summary Discharge Rx Participant: No New Discharge Prescriptions: Continue Fluticasone Propionate [Flonase Allergy Relief] 1 spray EA NOSTRIL BID Omeprazole [PriLOSEC] 40 mg PO DAILY Sucralfate [Carafate] 1 gm PO BID #560 ml Discharge Medication List Fluticasone Propionate [Flonase Allergy Relief] 1 spray EA NOSTRIL BID 11/11/23 [History] Omeprazole [PriLOSEC] 40 mg PO DAILY 11/11/23 [History] Sucralfate [Carafate] 1 gm PO BID #560 ml 07/27/24 [Rx] Follow up Appointment(s)/Ref[facility] [place] [place] - 11/20/24 Patient Instructions/Handouts: Esophageal Dilation (DC) Discharge Disposition: HOME SELF-CARE
[2024-09-05 08:15] VITALS: RESP 18
[2024-09-05 08:34] VITALS: BP 125/75; PULSE 69
== END 2024-09-05 08:49 | disposition home or self-care (01) ==
LOC: ORWHC2ENDO 06:55
PROVIDERS: ATTEND Surgery Plastic and Reconstructive Surgery
CPT/HCPCS: 43249

== ENCOUNTER → 2024-09-28 | Outpatient (CLI) | payer MEDICAID ==
[2024-09-28 16:18] VITALS: BMI 41.0
[2024-09-28 16:19] VITALS: BP 121/85; PULSE 73; RESP 16; TEMP 98.1
--- NOTE | 2024-09-28 16:31 | P.BASOAP ---
Subjective Progress Note Date: 09/28/24 She does not do well with chicken and had vomting 326 to 254. Hair is not falling out. Not severe stricture. She lost 70 pounds. She can do well with rotissere chicken. Try chilli. Chicken chillli. Labs reviewed and severe thiamine deficiency. Iron needed. Zinc needed. Walking stairs. HDL, choleerol 80 to 90 grams Objective - Vital Signs Vital signs: Vital Signs Temp 98.1 F 09/28/24 16:07 Pulse 73 09/28/24 16:07 Resp 16 09/28/24 16:07 BP 121/85 09/28/24 16:07 Pulse Ox FiO2 Intake & Output 09/27/24 09/28/24 09/28/24 18:59 06:59 18:59 Weight 115.212 kg Assessment/Plan Plan: Date: 09/28/24 Initial Weight: Initial BMI: Current Weight: 115.212 kg Current BMI: 41.0 Type of Surgery: Total Volume in Band: Previous Volume: Volume Removed: Volume Added: Band Size:
== END ==
LOC: BARWHC3 14:52
PROVIDERS: ATTEND Surgery Plastic and Reconstructive Surgery
DX: E66.01 Morbid (severe) obesity due to excess calories (principal); E51.9 Thiamine deficiency, unspecified; Z71.3 Dietary counseling and surveillance; R11.10 Vomiting, unspecified; Z91.040 Latex allergy status; Z88.5 Allergy status to narcotic agent; Z88.0 Allergy status to penicillin; Z88.2 Allergy status to sulfonamides; Z87.891 Personal history of nicotine dependence; Z68.41 Body mass index [BMI] 40.0-44.9, adult
CPT/HCPCS: 97803; 99211

== ENCOUNTER 2025-02-10 08:05 | Emergency (ER) | payer MEDICAID ==
[2025-02-10 08:12] VITALS: TEMP 98.3
--- NOTE | 2025-02-10 08:39 | ED ---
General Adult HPI - General Chief complaint: Neuro Symptoms/Deficit Stated complaint: vision changes, headache Time Seen by Provider: 02/10/25 08:17 Source: patient, RN notes reviewed Mode of arrival: ambulatory Limitations: no limitations - History of Present Illness Initial comments: Patient is a 54-year-old female present to the emergency department with concern with double vision of the left eye. Patient states she has been having headache for the past few days. Patient did feel lightheaded for a bit 3 days ago however that has not continued. This morning patient was rubbing her eye and since that time has had diplopia just of the left eye, just on the medial portion, just while concentrating. Diplopia is sometimes horizontal and sometim es vertical. Patient states usually this is while trying to concentrate on a name or number that is written down. Headache still remains however is 4/10. Headache is more behind the left eye at this time. No photophobia. No confusion. No speech deficit. No weakness. - Related Data Home Medications Medication Instructions Recorded Confirmed Fluticasone Propionate [Flonase 1 spr EA NOSTRIL BID 11/11/23 02/10/25 Allergy Relief] Levocetirizine Dihydrochloride 5 mg PO DAILY 09/28/24 02/10/25 [Xyzal] Atogepant [Qulipta] 60 mg PO DAILY 12/21/24 02/10/25 Vitamin B Complex 1 cap PO DAILY 12/21/24 02/10/25 Bariatric Multivitamin 1 tab PO DAILY 02/10/25 02/10/25 Calcium Citrate 1250mg W/Vit D3 1 tab PO DAILY 02/10/25 02/10/25 125mcg Fluticasone Propionate [Flonase 1 spr EA NOSTRIL BID PRN 02/10/25 02/10/25 Allergy Relief] Magnesium 250 mg PO HS 02/10/25 02/10/25 Zinc Gluconate [Zinc] 50 mg PO DAILY 02/10/25 02/10/25 valACYclovir HCL [Valtrex] 500 mg PO BID PRN 02/10/25 02/10/25 Allergies Allergy/AdvReac Type Severity Reaction Status Date / Time latex Allergy Severe Rash/Hives/Lips Verified 02/10/25 09:43 swell codeine Allergy Rash/Hives Verified 02/10/25 09:43 Penicillins Allergy Rash/Hives Verified 02/10/25 09:43 Sulfa (Sulfonamide Allergy blisters Verified 02/10/25 09:43 Antibiotics) on tongue sulfamethoxazole Allergy blisters Verified 02/10/25 09:43 [From Bactrim] on tongue trimethoprim [From Bactrim] Allergy blisters Verified 02/10/25 09:43 on tongue Review of Systems ROS Statement: Those systems with pertinent positive or pertinent negative responses have been documented in the HPI. ROS Other: All systems not noted in ROS Statement are negative. Constitutional: Denies: fever Eyes: Reports: vision change. Denies: eye pain, eye discharge ENT: Denies: ear pain Respiratory: Denies: cough, dyspnea Cardiovascular: Denies: chest pain Gastrointestinal: Denies: abdominal pain Musculoskeletal: Denies: back pain Skin: Denies: rash Neurological: Reports: as per HPI, headache. Denies: weakness, confusion Past Medical History Past Medical History: GERD/Reflux, Hyperlipidemia Additional Past Medical History / Comment(s): REcent issues with nausea and not being to tolerate solids since gastric surgery in Jun, decreased nausea now.2023.PVC's,migraines,polyneuropathy. Environmental allergies. . Tested negative for the BRCA1 mutation. + covid 07/30/24 History of Any Multi-Drug Resistant Organisms: None Reported Past Surgical History: Bariatric Surgery, Section, Cholecystectomy, Orthopedic Surgery, Tubal Ligation, Uterine Ablation Additional Past Surgical History / Comment(s): D&C, right foot surgery, ankle surgery right 2021. section x 2. colonoscopy 2023(next after 5yr). Gastric Bypass 06-13-24, EGD-Dilatation 07/14/24.and later in aug 08 2024, 09/05/24 Past Anesthesia/Blood Transfusion Reactions: No Reported Reaction Additional Past Anesthesia/Blood Transfusion Reaction / Comment(s): no blood transfusion Past Psychological History: No Psychological Hx Reported Smoking Status: Former smoker Past Alcohol Use History: Rare Past Drug Use History: None Reported - Past Family History Mother Family Medical History: Thyroid Disorder Sister(s) Family Medical History: Cancer, Deep Vein Thrombosis (DVT) Additional Family Medical History / Comment(s): Sister had ovarian, breast and skin cancer . BRCA1+, Carries breast and ovarian CA gene and blood clot gene Father Additional Family Medical History / Comment(s): +BRCA1 gene. Paternal aunt had ovarian cancer and another paternal aunt had breast cancer. Paternal grandfather had either colon or prostate cancer. Brother(s) Family Medical History: Cancer Additional Family Medical History / Comment(s): Skin cancer. Positive for the BRCA1 gene mutation. General Exam Limitations: no limitations General appearance: alert, in no apparent distress Head exam: Present: normocephalic, other (No tenderness over the temporal arteries) Eye exam: Present: normal appearance, PERRL, EOMI, other (Fluorescein stain without uptake) Expanded Eyelids: Normal Inspection: Bilateral Pupils: Regular, Round: Bilateral Sclera/Conjunctival: Normal Inspection: Bilateral Posterior chamber: Normal Inspection: Bilateral ENT exam: Present: normal oropharynx Neck exam: Present: normal inspection Respiratory exam: Present: normal lung sounds bilaterally Cardiovascular Exam: Present: regular rate, normal rhythm GI/Abdominal exam: Present: soft. Absent: tenderness Extremities exam: Present: normal inspection. Absent: pedal edema, calf tenderness Neurological exam: Present: alert, oriented X3, CN II-XII intact. Absent: motor sensory deficit Expanded Neurological exam: Present: protecting the airway Speech: Present: fluid speech Cranial nerves: EOM's Intact: Normal, Facial Sensation: Normal Sensory exam: Upper Extremity Light Touch: Normal, Lower Extremity Light Touch: Normal Motor strength exam: RUE: 5, LUE: 5, RLE: 5, LLE: 5 Eye Response: (4) open spontaneously Motor Response: (6) obeys commands Verbal Response: (5) oriented Psychiatric exam: Present: normal affect, normal mood Skin exam: Present: normal color Course Vital Signs 02/10/25 02/10/25 08:07 09:32 Temperature 98.3 F Pulse Rate 70 57 L Respiratory 18 18 Rate Blood Pressure 158/90 135/82 O2 Sat by Pulse 100 100 Oximetry EKG Findings - EKG Results: EKG: interpreted by ERMD, sinus rhythm, normal axis, normal QRS, normal ST/T EKG shows: bradycardia Medical Decision Making - Medical Decision Making Was pt. sent in by a medical professional or institution (, PA, LOGISTICS LEAD, urgent care, hospital, or long term...) When possible be specific @ -No Did you speak to anyone other than the patient for history (EMS, parent, family, police, friend...)? What history was obtained from this source @ -No Did you review nursing and triage notes (agree or disagree)? Why? @ -I reviewed and agree with nursing and triage notes Were old charts reviewed (outside hosp., previous admission, EMS record, old EKG, old radiological studies, urgent care reports/EKG's, long term records)? Report findings @ -No old charts were reviewed Differential Diagnosis (chest pain, altered mental status, abdominal pain women, abdominal pain men, vaginal bleeding, weakness, fever, dyspnea, syncope, headache, dizziness, GI bleed, back pain, seizure, CVA, palpatations, mental health, musculoskeletal)? @ -Differential Dizziness: Benign paroxysmal positional Vertigo, Meniere's disease, otitis media, acoustic neuroma, vertebrobasilar insufficiency, cerebellar stroke, encephalitis, hypovolemic, arrhythmia, coronary artery syndrome, anemia, this is not meant to be an all-inclusive list EKG interpreted by me (3pts min.). @ -As above X-rays interpreted by me (1pt min.). @ -Chest x-ray does not reveal acute abnormality CT interpreted by me (1pt min.). @ -CT brain does show some decreased size of the sella turcica U/S interpreted by me (1pt. min.). @ -None done What testing was considered but not performed or refused? (CT, X-rays, U/S, labs)? Why? @ -None What meds were considered but not given or refused? Why? @ -None Did you discuss the management of the patient with other professionals (professionals i.e. , PA, LOGISTICS LEAD, lab, RT, psych nurse, social professionals, soft shoe dancer, teacher, security officer, director of casework department)? Give summary @ -No Was smoking cessation discussed for >3mins.? @ -No Was critical care preformed (if so, how long)? @ -No Were there social determinants of health that impacted care today? How? (Homelessness, low income, unemployed, alcoholism, drug addiction, transportation, low edu. Level, literacy, decrease access to med. care, [facility], rehab)? @ -No Was there de-escalation of care discussed even if they declined (Discuss DNR or withdrawal of care, Hospice)? DNR status @ -No What co-morbidities impacted this encounter? (DM, HTN, Smoking, COPD, CAD, Cancer, CVA, ARF, Chemo, Hep., AIDS, mental health diagnosis, sleep apnea, mor bid obesity)? @ -Chronic headaches Was patient admitted / discharged? Hospital course, mention meds given and route, prescriptions, significant lab abnormalities, going to OR and other pertinent info. @ -Patient presents with chronic headaches and new left-sided diplopia. Diplopia is only left eye and in the medial portion. Emergency department evaluation otherwise unremarkable. Question of pseudotumor cerebri which does have some potential to be associated with some symptoms. Patient appointment obtained with Dr. Schroeder's office at 340 today. Patient is updated regarding this and ensure she will make this appointment. Patient is fully updated on results and need for appointment today. Undiagnosed new problem with uncertain prognosis? @ -No Drug Therapy requiring intensive monitoring for toxicity (Heparin, Nitro, Insulin, Cardizem)? @ -No Were any procedures done? @ -No Diagnosis/symptom? @ -Diplopia Acute, or Chronic, or Acute on Chronic? @ -Acute Uncomplicated (without systemic symptoms) or Complicated (systemic symptoms)? @ -Default Side effects of treatment? @ -No Exacerbation, Progression, or Severe Exacerbation? @ -No Poses a threat to life or bodily function? How? (Chest pain, USA, CT, pneumonia, PE, COPD, DKA, ARF, appy, cholecystitis, CVA, Diverticulitis, Homicidal, Suicidal, threat to staff... and all critical care pts) @ -No - Lab Data Result diagrams: 02/10/25 08:48 02/10/25 08:48 Lab Results 02/10/25 02/10/25 02/10/25 Range/Units 08:48 08:48 08:48 WBC 8.8 (3.8-10.6) k/uL RBC 4.84 (3.80-5.40) m/uL Hgb 14.4 (11.4-16.0) gm/dL Hct 45.1 (34.0-46.0) % MCV 93.0 (80.0-100.0) fL MCH 29.8 (25.0-35.0) pg MCHC 32.0 (31.0-37.0) g/dL RDW 13.6 (11.5-15.5) % Plt Count 229 (150-450) k/uL MPV 9.4 Neutrophils % 61 % Lymphocytes % 30 % Monocytes % 3 % Eosinophils % 3 % Basophils % 1 % Neutrophils # 5.4 (1.3-7.7) k/uL Lymphocytes # 2.6 (1.0-4.8) k/uL Monocytes # 0.3 (0-1.0) k/uL Eosinophils # 0.3 (0-0.7) k/uL Basophils # 0.1 (0-0.2) k/uL PT 10.3 (10.0-12.5) sec INR 0.9 (<1.2) APTT 23.3 (22.0-30.0) sec Sodium 141 (137-145) mmol/L Potassium 4.0 (3.5-5.1) mmol/L Chloride 106 (98-107) mmol/L Carbon Dioxide 24 (22-30) mmol/L Anion Gap 11 mmol/L BUN 18 H (7-17) mg/dL Creatinine 0.56 (0.52-1.04) mg/dL Est GFR (CKD-EPI)AfAm >90 (>60 ml/min/1.73 sqM) Est GFR (CKD-EPI)NonAf >90 (>60 ml/min/1.73 sqM) Glucose 90 (74-99) mg/dL Calcium 9.3 (8.4-10.2) mg/dL Total Bilirubin 0.9 (0.2-1.3) mg/dL AST 34 (14-36) U/L ALT 30 (4-34) U/L Alkaline Phosphatase 107 (38-126) U/L Total Protein 7.2 (6.3-8.2) g/dL Albumin 4.5 (3.5-5.0) g/dL Disposition Clinical Impression: Diplopia Disposition: HOME SELF-CARE Instructions (If sedation given, give patient instructions): Diplopia (ED) Additional Instructions: Please follow-up at [address]ro[address]'s office for further evaluation. Please arrive beforehand. Return for worsening vision, weakness, confusion, worsening symptoms or any other concerns. Please also follow-up with primary care physician in the next couple of days for recheck. Is patient prescribed a controlled substance at d/c from ED?: No Referrals: Trent Claros MD [Primary Care Provider] - 1-2 days Sathya Schroeder DO [Doctor of Osteopathic Medicine] - 02/10/25 3:30 pm ([facility] You will be seen by Dr Mahdi Cuadra. Please bring insurance and ID cards. You will have new patient paperwork to complete. ) Time of Disposition: 11:09
[2025-02-10 08:55] LABS: Basophils # (A) 0.1 k/uL (0-0.2); Basophils % (A) 1 %; Eosinophils # (A) 0.3 k/uL (0-0.7); Eosinophils % (A) 3 %; HCT 45.1 % (34.0-46.0); HGB 14.4 gm/dL (11.4-16.0); Lymphocytes # (A) 2.6 k/uL (1.0-4.8); Lymphocytes % (A) 30 %; MCH 29.8 pg (25.0-35.0); Mean Platelet Volume 9.4; Monocytes # (A) 0.3 k/uL (0-1.0); Monocytes % (A) 3 %; Neutrophils # (A) 5.4 k/uL (1.3-7.7); Neutrophils % (A) 61 %; Platelet Count 229 k/uL (150-450); RBC 4.84 m/uL (3.80-5.40); RDW 13.6 % (11.5-15.5); WBC 8.8 k/uL (3.8-10.6)
[2025-02-10 09:03] LABS: INR 0.9 (<1.2); Partial Thromboplastin Time 23.3 sec (22.0-30.0); Prothrombin Time 10.3 sec (10.0-12.5)
--- NOTE | 2025-02-10 09:12 | XR ---
EXAMINATION TYPE: XR chest 2V DATE OF EXAM: 02/10/2025 CLINICAL INDICATION: Female, 54 years old with history of altered mental status, TECHNIQUE: Frontal and lateral views of the chest are obtained. COMPARISON: Chest x-ray May 13, 2024 FINDINGS: There is no focal air space opacity, pleural effusion, or pneumothorax seen. The cardiac silhouette size is stable and within normal limits. The osseous structures are intact. IMPRESSION: No acute cardiopulmonary process. No significant change from prior. [facility], , 02/10/2025 9:10 AM
[2025-02-10 09:13] LABS: ALT 30 U/L (4-34); AST 34 U/L (14-36); African American GFR (CKD) >90 (>60 ml/min/1.73 sqM); Albumin 4.5 g/dL (3.5-5.0); Alkaline Phosphatase 107 U/L (38-126); Anion Gap 11 mmol/L; Blood Urea Nitrogen 18 mg/dL (7-17); Calcium 9.3 mg/dL (8.4-10.2); Carbon Dioxide 24 mmol/L (22-30); Chloride 106 mmol/L (98-107); Glucose 90 mg/dL (74-99); Non-African American GFR(CKD) >90 (>60 ml/min/1.73 sqM); Sodium 141 mmol/L (137-145); Total Bilirubin 0.9 mg/dL (0.2-1.3); Total Protein 7.2 g/dL (6.3-8.2)
[2025-02-10] MEDS: ACETAMINOPHEN IV (For NPO) 1,000 MG in EMPTY BAG 1 BAG IVPB STA (09:15)
[2025-02-10] MEDS: FLUORESCEIN STRIPS 1 MG STRIP RIGHT EYE ONE (09:20)
--- NOTE | 2025-02-10 09:32 | CT ---
EXAMINATION TYPE: CT brain wo con DATE OF EXAM: 02/10/2025 9:17 AM COMPARISON: 03/24/2014 CLINICAL INDICATION: Female, 54 years old with history of visual changes, left eye double vision/head ache, TECHNIQUE: Examination was done in axial plane without intravenous contrast. Coronal and sagittal r econstructions performed. CT DLP: 1094.5 mGycm, Automated exposure control for dose reduction was used. FINDINGS: There is no evidence of acute intracranial hemorrhage, acute ischemic changes, mass, mass-effect, or extra-axial fluid collection. There is no effacement of cerebral sulci or basal subarachnoid cister ns. There is no hydrocephalus. There is no midline shift. Santana-white matter distinction is preserv ed. Partially empty sella. 1.5 cm mucosal retention cyst floor of right maxillary sinus. Small air-fluid level or right sphenoid sinus. Orbits and globes are intact. Mastoid air cells well pneumatized. IMPRESSION: 1. No acute intracranial abnormality seen. 2. Given patient's visual changes, headache, and partially empty sella, correlate to exclude the poss ibility of pseudotumor cerebri. [facility], , 02/10/2025 9:30 AM
--- NOTE | 2025-02-10 09:51 | CT ---
EXAMINATION TYPE: CT angio head neck DATE OF EXAM: 02/10/2025 9:28 AM COMPARISON: Brain same day. CLINICAL INDICATION: Female, 54 years old with history of visual changes, garcia; PHH, TECHNIQUE: Axially acquired helical CT angiogram of the head and neck was obtained with contrast. Axi al images are supplemented with 3D reconstructions and MIP images which were post-processed at an in dependent workstation. NASCET criteria used. Contrast used:70 mL of Isovue 370 with IV Contrast, Oral contrast used: None. CT DLP: 1631.4 mGycm, Automated exposure control for dose reduction was used. FINDINGS: CTA HEAD: Slightly dominant right vertebral artery. Otherwise, both vertebral and basilar arteries as well as t he remainder of the posterior circulation appears patent. A small, patent left posterior communicatin g artery is noted. The bilateral internal carotid arteries and remainder of the anterior circulation is patent. Dural venous sinuses are patent. No aneurysmal change is seen. 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 Both vertebral ar teries are otherwise patent throughout their course. The bilateral common carotid arteries are patent. Mild atherosclerotic calcifications within the uppe r left CCA. Minimal atherosclerotic calcifications right carotid bulb. Otherwise, the bilateral internal carotid arteries are widely patent. Prominent hairpin tortuosity mid right ICA and upper left ICA. Upper thorax: Unremarkable. IMPRESSION: 1. 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 The vertebral and carotid arteries of the neck remain widely patent. 2. Head: No large vessel intracranial arterial occlusion, significant stenosis, or aneurysmal change is seen. [facility], , 02/10/2025 9:48 AM
[2025-02-10 11:23] VITALS: BP 142/84; PULSE 52; RESP 20
== END 2025-02-10 11:26 | disposition home or self-care (01) ==
LOC: EC 08:05
DX: H53.2 Diplopia (principal); G89.29 Other chronic pain; R51.9 Headache, unspecified; R00.1 Bradycardia, unspecified; Z88.0 Allergy status to penicillin; Z88.1 Allergy status to other antibiotic agents; Z88.2 Allergy status to sulfonamides; Z91.040 Latex allergy status; Z88.5 Allergy status to narcotic agent; Z87.891 Personal history of nicotine dependence; Z86.16 Personal history of COVID-19
CPT/HCPCS: 36415; 93005; 80053; 85025; 85610; 85730; 71046; 70496; 70450; 70498; 99285; 96365; J0131; Q9967

== ENCOUNTER 2025-02-10 17:26 | Inpatient (IN) | payer MEDICAID ==
--- NOTE | 2025-02-10 18:39 | ED ---
General Adult HPI - General Chief complaint: Headache Stated complaint: double vision Time Seen by Provider: 02/10/25 17:50 Source: patient, RN notes reviewed, old records reviewed Mode of arrival: ambulatory - History of Present Illness Initial comments: Is a 54-year-old female who presents to the emergency department after having been here earlier today. Patient states she started spearing seeing double vision earlier today came to the emergency department she had a CAT scan of her head and a CT angiogram of her head and neck. Patient was then sent to Dr. Schroeder's office and he was seen by an medical claims examiner who said she had some papilledema in her right eye and wanted to come back to the emergency department to be admitted and consideration for a lumbar puncture and an MRI. Patient has no other neurologic deficit patient has no other complaint - Related Data Home Medications Medication Instructions Recorded Confirmed Fluticasone Propionate [Flonase 1 spr EA NOSTRIL BID 11/11/23 02/10/25 Allergy Relief] Levocetirizine Dihydrochloride 5 mg PO DAILY 09/28/24 02/10/25 [Xyzal] Atogepant [Qulipta] 60 mg PO DAILY 12/21/24 02/10/25 Vitamin B Complex 1 cap PO DAILY 12/21/24 02/10/25 Bariatric Multivitamin 1 tab PO DAILY 02/10/25 02/10/25 Calcium Citrate 1250mg W/Vit D3 1 tab PO DAILY 02/10/25 02/10/25 125mcg Fluticasone Propionate [Flonase 1 spr EA NOSTRIL BID PRN 02/10/25 02/10/25 Allergy Relief] Magnesium 250 mg PO HS 02/10/25 02/10/25 Zinc Gluconate [Zinc] 50 mg PO DAILY 02/10/25 02/10/25 valACYclovir HCL [Valtrex] 500 mg PO BID PRN 02/10/25 02/10/25 Allergies Allergy/AdvReac Type Severity Reaction Status Date / Time latex Allergy Severe Rash/Hives/Lips Verified 02/10/25 17:47 swell codeine Allergy Rash/Hives Verified 02/10/25 17:47 Penicillins Allergy Rash/Hives Verified 02/10/25 17:47 Sulfa (Sulfonamide Allergy blisters Verified 02/10/25 17:47 Antibiotics) on tongue sulfamethoxazole Allergy blisters Verified 02/10/25 17:47 [From Bactrim] on tongue trimethoprim [From Bactrim] Allergy blisters Verified 02/10/25 17:47 on tongue Review of Systems ROS Statement: Those systems with pertinent positive or pertinent negative responses have been documented in the HPI. ROS Other: All systems not noted in ROS Statement are negative. Past Medical History Past Medical History: GERD/Reflux, Hyperlipidemia Additional Past Medical History / Comment(s): REcent issues with nausea and not being to tolerate solids since gastric surgery in Jun, decreased nausea now.2023.PVC's,migraines,polyneuropathy. Environmental allergies. . Tested negative for the BRCA1 mutation. + covid 07/30/24 History of Any Multi-Drug Resistant Organisms: None Reported Past Surgical History: Bariatric Surgery, Section, Cholecystectomy, Orthopedic Surgery, Tubal Ligation, Uterine Ablation Additional Past Surgical History / Comment(s): D&C, right foot surgery, ankle surgery right 2021. section x 2. colonoscopy 2023(next after 5yr). Gastric Bypass 06-13-24, EGD-Dilatation 07/14/24.and later in aug 08 2024, 09/05/24 Past Anesthesia/Blood Transfusion Reactions: No Reported Reaction Additional Past Anesthesia/Blood Transfusion Reaction / Comment(s): no blood transfusion Past Psychological History: No Psychological Hx Reported Smoking Status: Former smoker Past Alcohol Use History: Rare Past Drug Use History: None Reported - Past Family History Mother Family Medical History: Thyroid Disorder Sister(s) Family Medical History: Cancer, Deep Vein Thrombosis (DVT) Additional Family Medical History / Comment(s): Sister had ovarian, breast and skin cancer . BRCA1+, Carries breast and ovarian CA gene and blood clot gene Father Additional Family Medical History / Comment(s): +BRCA1 gene. Paternal aunt had ovarian cancer and another paternal aunt had breast cancer. Paternal grandfather had either colon or prostate cancer. Brother(s) Family Medical History: Cancer Additional Family Medical History / Comment(s): Skin cancer. Positive for the BRCA1 gene mutation. General Exam - General Exam Comments Initial Comments: GENERAL: Patient is well-developed and well-nourished. Patient is nontoxic and well- hydrated and is in no acute distress. ENT: Neck is soft and supple. No significant lymphadenopathy is noted. Oropharynx is clear. Moist mucous membranes. Neck has full range of motion without eliciting any pain. EYES: The sclera were anicteric and conjunctiva were pink and moist. Extraocular movements were intact and pupils were equal round and reactive to light. Eyelids were unremarkable. SKIN: Skin is clear with no lesions or rashes and otherwise unremarkable. NEUROLOGIC: Patient is alert and oriented x3. Cranial nerves II through XII are grossly intact. Motor and sensory are also intact. Normal speech, volume and content. Symmetrical smile. Patient's coordination was normal. MUSCULOSKELETAL: Normal extremities with adequate strength and full range of motion. PSYCHIATRIC: Normal psychiatric evaluation. Course Vital Signs 02/10/25 17:42 Temperature 98.3 F Pulse Rate 61 Respiratory 18 Rate Blood Pressure 151/94 O2 Sat by Pulse 100 Oximetry Medical Decision Making - Medical Decision Making EKG is interpreted by myself. EKG shows a sinus bradycardia 59 bpm SD interval 167 QRS is 97 QT interval is 442 QTc is 440. Was pt. sent in by a medical professional or institution (, FLORECITA, RECOVERER, urgent care, hospital, or long term...) When possible be specific @ -No Did you speak to anyone other than the patient for history (EMS, parent, family, police, friend...)? What history was obtained from this source @ -No Did you review nursing and triage notes (agree or disagree)? Why? @ -I reviewed and agree with nursing and triage notes Were old charts reviewed (outside hosp., previous admission, EMS record, old EKG, old radiological studies, urgent care reports/EKG's, long term records)? Report findings @ -No old charts were reviewed Differential Diagnosis? @ -Lens dislocation, occipital stroke, MS, encephalitis, this is not an all- inclusive list EKG interpreted by me (3pts min.). @ -As above X-rays interpreted by me (1pt min.). @ -None done CT interpreted by me (1pt min.). @ -None done U/S interpreted by me (1pt. min.). @ -None done What testing was considered but not performed or refused? (CT, X-rays, U/S, labs)? Why? @ -None What meds were considered but not given or refused? Why? @ -None Did you discuss the management of the patient with other professionals (professionals i.e. , PA, RECOVERER, lab, RT, psych nurse, social security assessor, senior data integration developer, teacher, assault amphibious vehicle officer, gearcase assembler)? Give summary @ -I spoke with Dr. Koehler he agreed to admit the patient admit the patient I wrote admitting orders Was smoking cessation discussed for >3mins.? @ -No Was critical care preformed (if so, how long)? @ -No Were there social determinants of health that impacted care today? How? (Homelessness, low income, unemployed, alcoholism, drug addiction, transportation, low edu. Level, literacy, decrease access to med. care, [facility], rehab)? @ -No Was there de-escalation of care discussed even if they declined (Discuss DNR or withdrawal of care, Hospice)? DNR status @ -No What co-morbidities impacted this encounter? (DM, HTN, Smoking, COPD, CAD, Cancer, CVA, ARF, Chemo, Hep., AIDS, mental health diagnosis, sleep apnea, morbid obesity)? @ -None Was patient admitted / discharged? Hospital course, mention meds given and route, prescriptions, significant lab abnormalities, going to OR and other pertinent info. @ -I spoke with [facility] hospitalist and patient will be admitted with neurology, Undiagnosed new problem with uncertain prognosis? @ -No Drug Therapy requiring intensive monitoring for toxicity (Heparin, Nitro, Insulin, Cardizem)? @ -No Were any procedures done? @ -No Diagnosis/symptom? @ -Diploic Acute, or Chronic, or Acute on Chronic? @ -Acute Uncomplicated (without systemic symptoms) or Complicated (systemic symptoms)? @ -Complicated Side effects of treatment? @ -No Exacerbation, Progression, or Severe Exacerbation? @ -No Poses a threat to life or bodily function? How? (Chest pain, [place], [place], pneumonia, PE, COPD, DKA, ARF, appy, cholecystitis, CVA, Diverticulitis, Homicidal, Suicidal, threat to staff... and all critical care pts) @ -No Disposition Clinical Impression: Diplopia, Papilledema Disposition: ADMITTED IP TO THIS HOSP Referrals: Trent Claros MD [Primary Care Provider] - 1-2 days Time of Disposition: 18:38
[2025-02-11] MEDS: ACETAMINOPHEN TAB 500 MG TAB PO PRN (03:57)
[2025-02-11] MEDS: CALCIUM CARB-VIT D 500 MG-5 MCG TAB PO SCH (08:38)
[2025-02-11] MEDS: FLUTICASONE NASAL 50MCG/SPRAY 16GM BTL EA NOSTRIL SCH (08:38)
[2025-02-11] MEDS: ZINC SULFATE 220 MG CAP PO SCH (08:38)
[2025-02-11] MEDS: NON FORMULARY DRUG (Atogepant [Qulipta] 60 MG Tablet) PO SCH (08:38)
[2025-02-11] MEDS: LORATADINE 10 MG TAB PO SCH (08:38)
[2025-02-11] MEDS: MULTIVITAMINS, THERA 1 EACH TAB PO SCH (08:38)
[2025-02-11] MEDS ORDERED: NON FORMULARY DRUG (Vitamin B Complex [Vitamin B Complex] 1 EACH Capsule) PO SCH (09:00)
[2025-02-11] MEDS ORDERED: MELATONIN 3 MG TABLET PO PRN (10:20)
[2025-02-11] MEDS ORDERED: NALOXONE 0.4 MG/ML 1 ML VIAL IV PRN (10:20)
[2025-02-11] MEDS: ACETAMINOPHEN TAB 325 MG TAB PO PRN (11:03)
--- NOTE | 2025-02-11 14:41 | P.HPIM ---
History of Present Illness H&P Date: 02/11/25 History of present illness; patient is 54-year-old lady with past medical history significant for hyperlipidemia, GERD who presented to the ER for double vision in her left eye. Patient was seen initially in the ER yesterday morning at which time patient CT head without contrast and CTA head and neck done, CT brain did not show any acute intracranial abnormality, CTA head and neck showed no significant stenosis, aneurysm or thrombus in the intracranial circulation. Patient was discharged to follow-up outpatient with programming development project manager, patient was evaluated by ophthalmology and was told to come back to the ER for an MRI brain. Patient stated that she was all right yesterday morning when she started noticing that her vision was blurred and was having double vision in her left eye. Patient was medical headache for a few days. There was no complaint of any weakness of any extremity. There was also no slurred speech. Because of the symptoms, patient brought in the ER Patient admitted to internal medicine service REVIEW OF SYSTEMS: CONSTITUTIONAL: No fever, no malaise, no fatigue. HEENT: No recent visual problems or hearing problems. Denied any sore throat. CARDIOVASCULAR: No chest pain, orthopnea, PND, no palpitations, no syncope. PULMONARY: No shortness of breath, no cough, no hemoptysis. GASTROINTESTINAL: No diarrhea, no nausea, no vomiting, no abdominal pain. NEUROLOGICAL: Mentioned above HEMATOLOGICAL: Denies any bleeding or petechiae. GENITOURINARY: Denies any burning micturition, frequency, or urgency. MUSCULOSKELETAL/RHEUMATOLOGICAL: Denies any joint pain, swelling, or any muscle pain. ENDOCRINE: Denies any polyuria or polydipsia. The rest of the 14-point review of systems is negative. PHYSICAL EXAMINATION: GENERAL: The patient is alert and oriented x3, not in any acute distress. Well developed, well nourished. HEENT: Pupils are round and equally reacting to light. EOMI. No scleral icterus. No conjunctival pallor. Normocephalic, atraumatic. No pharyngeal erythema. No thyromegaly. CARDIOVASCULAR: S1 and S2 present. No murmurs, rubs, or gallops. PULMONARY: Chest is clear to auscultation, no wheezing or crackles. ABDOMEN: Soft, nontender, nondistended, normoactive bowel sounds. No palpable organomegaly. MUSCULOSKELETAL: No joint swelling or deformity. EXTREMITIES: No cyanosis, clubbing, or pedal edema. NEUROLOGICAL: Gross neurological examination did not reveal any focal deficits. Diplopia in both eyes SKIN: No rashes. Assessment and plan Diplopia Headache Monitor vital signs Monitor CBC Monitor CMP Continue telemetry monitoring Ordered neurochecks Ordered 2D echo Order MRI brain Ordered ESR Order lipid panel Ordered Hba1c Neurology consulted Labs and medication were reviewed.. Continue same treatment. Continue with symptomatic treatment. Resume home medication. Monitor labs and vitals. DVT and GI prophylaxis. Further recommendations as per clinical course of the patient Dictation was produced using [employer] dictation software. please excuse any grammatical, word or spelling errors. Past Medical History Past Medical History: Hyperlipidemia Additional Past Medical History / Comment(s): PVC's runs 4- 5,migraines,polyneuropathy. Environmental allergies. Tested negative for the BRCA1 mutation. +covid 07/30/24 History of Any Multi-Drug Resistant Organisms: None Reported Past Surgical History: Bariatric Surgery, Section, Cholecystectomy, Orthopedic Surgery, Tubal Ligation, Uterine Ablation Additional Past Surgical History / Comment(s): D&C, right foot surgery, ankle surgery right 2021. section x 2. colonoscopy 2023(next after 5yr). Gastric Bypass 06-13-24, EGD-Dilatation 07/14/24.and later in aug 08 2024, 09/05/24 Past Anesthesia/Blood Transfusion Reactions: No Reported Reaction Additional Past Anesthesia/Blood Transfusion Reaction / Comment(s): no blood transfusion Past Psychological History: No Psychological Hx Reported Smoking Status: Former smoker Past Alcohol Use History: Rare Additional Past Alcohol Use History / Comment(s): quit smoking 2009,smoked approx 23 yrs,1ppd Past Drug Use History: None Reported - Past Family History Mother Family Medical History: Thyroid Disorder Sister(s) Family Medical History: Cancer, Deep Vein Thrombosis (DVT) Additional Family Medical History / Comment(s): Sister had ovarian, breast and skin cancer . BRCA1+, Carries breast and ovarian CA gene and blood clot gene Father Additional Family Medical History / Comment(s): +BRCA1 gene. Paternal aunt had ovarian cancer and another paternal aunt had breast cancer. Paternal grandfather had either colon or prostate cancer. Brother(s) Family Medical History: Cancer Additional Family Medical History / Comment(s): Skin cancer. Positive for the BRCA1 gene mutation. Medications and Allergies Home Medications Medication Instructions Recorded Confirmed Type Fluticasone Propionate [Flonase 2 spr EA NOSTRIL BID 11/11/23 02/10/25 History Allergy Relief] Levocetirizine Dihydrochloride 5 mg PO DAILY 09/28/24 02/10/25 History [Xyzal] Atogepant [Qulipta] 60 mg PO DAILY 12/21/24 02/10/25 History Vitamin B Complex 1 cap PO DAILY 12/21/24 02/10/25 History Bariatric Multivitamin 1 tab PO DAILY 02/10/25 02/10/25 History Calcium Citrate 1250mg W/Vit D3 1 tab PO DAILY 02/10/25 02/10/25 History 125mcg Zinc Gluconate [Zinc] 50 mg PO DAILY 02/10/25 02/10/25 History valACYclovir HCL [Valtrex] 500 mg PO BID PRN 02/10/25 02/10/25 History Allergies Allergy/AdvReac Type Severity Reaction Status Date / Time latex Allergy Severe Rash/Hives/Lips Verified 02/10/25 19:42 swell codeine Allergy Rash/Hives Verified 02/10/25 19:42 Penicillins Allergy Rash/Hives Verified 02/10/25 19:42 Sulfa (Sulfonamide Allergy blisters Verified 02/10/25 19:42 Antibiotics) on tongue sulfamethoxazole Allergy blisters Verified 02/10/25 19:42 [From Bactrim] on tongue trimethoprim [From Bactrim] Allergy blisters Verified 02/10/25 19:42 on tongue Physical Exam Vitals: Vital Signs Temp Pulse Pulse Resp BP BP Pulse Ox 02/11/25 08:00 97.7 F 62 17 119/79 100 02/11/25 03:55 50 L 18 110/70 97 02/10/25 23:40 97.0 F L 61 16 101/64 97 02/10/25 21:00 55 L 20 133/85 100 02/10/25 20:02 77 18 123/67 99 02/10/25 20:01 67 18 123/77 99 02/10/25 17:42 98.3 F 61 18 151/94 100 Intake and Output 02/10/25 02/11/25 02/11/25 22:59 06:59 14:59 Intake Total 10 1320 Balance 10 1320 Intake: IV 10 Invasive Line 1 10 Oral 1320 Other: Voiding Method Toilet Toilet Toilet # Voids 1 1 Weight 98.792 kg 97.8 kg Thrombosis Risk Factor Assmnt - Choose All That Apply Each Factor Represents 1 point: Age 41-60 years, Obesity (BMI >25) Thrombosis Risk Factor Assessment Total Risk Factor Score: 2 Thrombosis Risk Factor Assessment Level: Low Risk
--- NOTE | 2025-02-11 15:41 | MR ---
INDICATION: Patient age:Female; 54 years old; Reason for study: Headache, blurred vision; PHH. COMPARISON: CT brain 02/10/2025, CTA head and neck 02/10/2025 TECHNIQUE: Multi planar, multi sequence imaging was performed through the brain without administratio n of intravenous contrast. FINDINGS: The johnson-white junctions, ventricular system, basal cisterns appear unremarkable. Age-appropriate cer ebral parenchymal volume. Diffusion-weighted imaging shows no evidence of restricted diffusion to sug gest acute/subacute infarct. Intracranial arterial flow voids are maintained. Partial empty sella. Op tic chiasm appears unremarkable. Few foci of high T2/FLAIR signal intensity are seen within the subco rtical and periventricular white matter. Approximately 5 foci identified with largest in the right fr ontal lobe subcortical white matter measuring up to 4 mm (series 601, image 17). The susceptibility w eighted images demonstrate a focus of susceptibility artifact within the posterior left frontal lobe representing prior hemosiderin deposition. The bone marrow signal is within normal limits. The globes are unremarkable. No optic nerve sheath d istention or posterior globe flattening. No optic nerve tortuosity. No papilledema identified. Trace right mastoid effusion. Right maxillary sinus 1.4 cm T2 hyperintense mucous retention cyst. Mucosal t hickening of the glenoid sinuses with air-fluid level within the right sphenoid sinus. IMPRESSION: 1. No evidence of intracranial mass or acute/subacute infarct. 2. Nonspecific minimal white matter changes, likely related to small vessel ischemic disease. Demyeli nating disease, chronic migraines, vasculitis, Lyme disease or other considerations. 3. Mild mucosal sinus disease with air-fluid level within the right sphenoid sinus. Correlate clinica lly for acute sinusitis. 4. Trace right mastoid effusion. [facility], , 02/11/2025 3:38 PM
[2025-02-12 08:45] LABS: ALT 31 U/L (4-34); AST 32 U/L (14-36); African American GFR (CKD) >90 (>60 ml/min/1.73 sqM); Albumin 4.2 g/dL (3.5-5.0); Alkaline Phosphatase 98 U/L (38-126); Anion Gap 10 mmol/L; Blood Urea Nitrogen 10 mg/dL (7-17); Calcium 9.6 mg/dL (8.4-10.2); Carbon Dioxide 22 mmol/L (22-30); Chloride 106 mmol/L (98-107); Glucose 164 mg/dL (74-99); Non-African American GFR(CKD) >90 (>60 ml/min/1.73 sqM); Sodium 138 mmol/L (137-145); Total Bilirubin 1.3 mg/dL (0.2-1.3); Total Protein 6.7 g/dL (6.3-8.2)
[2025-02-12 08:46] LABS: Basophils # (A) 0.1 k/uL (0-0.2); Basophils % (A) 1 %; Eosinophils # (A) 0.3 k/uL (0-0.7); Eosinophils % (A) 4 %; HCT 44.7 % (34.0-46.0); HGB 14.4 gm/dL (11.4-16.0); Lymphocytes # (A) 2.8 k/uL (1.0-4.8); Lymphocytes % (A) 42 %; MCH 29.8 pg (25.0-35.0); MCHC 32.3 g/dL (31.0-37.0); MCV 92.2 fL (80.0-100.0); Mean Platelet Volume 9.1; Monocytes # (A) 0.2 k/uL (0-1.0); Monocytes % (A) 3 %; Neutrophils # (A) 3.2 k/uL (1.3-7.7); Neutrophils % (A) 48 %; Platelet Count 233 k/uL (150-450); RBC 4.84 m/uL (3.80-5.40); RDW 13.3 % (11.5-15.5); WBC 6.7 k/uL (3.8-10.6)
[2025-02-12 09:45] LABS: Chol/HDL Ratio 3.84 Ratio; LDL Cholesterol,Calculated 113.5 mg/dL (0.0-131.0)
--- NOTE | 2025-02-12 11:47 | CA ---
Transthoracic Echo Report Name: Zoya Abdi Age: 54 Gender: F : 1970 Exam Date: 02/11/2025 13:27 Exam Location: [facility] Ht (in): 66 Wt (lb): 215 Ordering Physician: Pool Franco MD Attending/Referring Phys: Squeegee Tender Zoila Garcia RDCS Procedure CPT: Indications: Blurred vision, rule out stroke, CVA Cardiac Hx: Technical Quality: Good Contrast 1: Agitated Saline Total Dose (mL): 10 Contrast 2: Total Dose (mL): MEASUREMENTS (Male / Female) Normal Values 2D ECHO LV Diastolic Diameter PLAX 4.4 cm 4.2 - 5.9 / 3.9 - 5.3 cm LV Systolic Diameter PLAX 2.6 cm IVS Diastolic Thickness 1.0 cm 0.6 - 1.0 / 0.6 - 0.9 cm LVPW Diastolic Thickness 0.9 cm 0.6 - 1.0 / 0.6 - 0.9 cm LV Relative Wall Thickness 0.4 RV Internal Dim ED PLAX 1.7 cm LA Systolic Diameter LX 3.4 cm 3.0 - 4.0 / 2.7 - 3.8 cm LV Diastolic Volume MOD 2C 76.3 cm??? LV Systolic Volume MOD 2C 20.9 cm??? LV Ejection Fraction MOD 2C 72.6 % LV Cardiac Index MOD 2C 1863.9 cm???/min???m??? LV Diastolic Length 2C 8.9 cm LV Systolic Length 2C 6.6 cm M-MODE Aortic Root Diameter MM 3.2 cm LA Systolic Diameter MM 3.4 cm LA Ao Ratio MM 1.1 AV Cusp Separation MM 2.2 cm DOPPLER MV Area PHT 2.6 cm??? Mitral E Point Velocity 89.2 cm/s Mitral A Point Velocity 55.2 cm/s Mitral E to A Ratio 1.6 MV Deceleration Time 294.9 ms TR Peak Velocity 207.8 cm/s TR Peak Gradient 17.3 mmHg Right Ventricular Systolic Press 21.6 mmHg FINDINGS Left Ventricle Left ventricular ejection fraction is estimated at 60-65 %. Normal left ventricular systolic function with no obvious regional wall motion abnormalities. Left ventricular cavity size normal. Left ventricular wall thickness normal. Right Ventricle Normal right ventricular size and function. Right ventricular systolic pressure within normal limits. Right Atrium Normal right atrial size. Negative agitated saline bubble study for right to left shunt. Left Atrium Normal left atrial size. Mitral Valve Structurally normal mitral valve. Trace to mild mitral regurgitation. No mitral stenosis. Aortic Valve Trileaflet aortic valve. No aortic valve stenosis or regurgitation. Tricuspid Valve Structurally normal tricuspid valve. No tricuspid stenosis. Trace to mild tricuspid regurgitation. Pulmonic Valve Structurally normal pulmonic valve. No pulmonic stenosis. Trace pulmonic regurgitation. Pericardium No pericardial or pleural effusion. Aorta Normal size aortic root and proximal ascending aorta. CONCLUSIONS Left ventricular ejection fraction is estimated at 60-65 %. Normal left ventricular systolic function with no obvious regional wall motion abnormalities. No evidence of [id number] intracardiac shunting on bubble study Normal RV size and systolic function No significant valvular dysfunction Previewed by: Dr Tuan Estrada (Electronically Signed) Final Date: 12 February 2025 11:46
--- NOTE | 2025-02-12 12:45 | P.CNNES ---
History of Present Illness Consult date: 02/11/25 Requesting physician: Santos Prabhakar Reason for Consult: Papilledema, diplopia History of Present Illness: Patient is a 54-year-old right-handed female came to the hospital yesterday at 5:26 PM for blurred vision, diplopia and visual disturbance. 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 When she got out of the room, she felt off balance like her depth perception was off. About half an hour later, she started having headache, which she felt was maybe her migraine. She turned the lights off. She for the headache all day. It was about 3/10, noticeable when she moves around, it was increasing and then coming back down and better when she was laying down. She noticed some visual disturbance consisting of like a tilt in the vision. By , she still had the headache and on that day, while taking out the sutures, she kept on missing the tweezer. On Thursday (yesterday) when she rolled over in the bed, she saw some flashing lights in the left eye and she could "see vessels" in that visual disturbance. Then she noted her whole left eye had blurred vision while taking a shower. She still drove to work and eyes were still blurred and then she started noticed some diplopia. Patient states she has bought new glasses in December 2024. Overall her blurred blurred vision is better, but she still has some blurred vision peripherally in both eyes, diplopia is still there. Her eyes feel strained and light is bothering her. She has some pressure headache.. She is concerned about "empty sella". She still feels slightly off balance, but believes it is from visual disturbance. Patient was seen by ict support engineer Dr. Sergio Cuadra, who has diagnosed her with intractable headache with diplopia, enlarged blind spot, and disc edema OS. Patient was recommended to go to hospital for lumbar puncture to check for opening pressure and cytology. Vital signs on arrival blood pressure 151/94, which came down to 123/77, pulse rate 61 temperature 98.3. EKG showed sinus bradycardia. Brain MRI without contrast has been completed, which revealed no evidence of intracranial mass or acute/subacute infarct. Nonspecific minimal white matter changes, likely related to small vessel ischemic disease. Demyelinating disease, chronic migraines, vasculitis, Lyme disease or other considerations. Mild mucosal sinus disease with air-fluid level within the right sphenoid sinus. Correlate clinically with acute sinusitis. Trace right mastoid effusion. I personally reviewed MRI, and agree with the findings. 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 She was ruled out for MS. She had some peripheral neuropathy, which also has gone away. Patient had undergone gastric bypass surgery on 06/13/2024. She used to weigh 326 pounds and she has lost 111 pounds and now down to 215 pounds. Patient denies any history of diabetes, hypertension. Patient also mentions that she has developed postcoital migraines for which she is taking Quillipta, which has improved these headaches from 90% down to 25%. After intercourse, she can have a headache that may last for 30 seconds to 2 minutes or sometimes can last for 1 to 2 days. She did smoke 1 pack/day for 20 years, quit 15 years ago. She drinks alcohol very very rarely. Medications include Quilipta 60 mg, Valtrex, Xyzal, Flonase. Review of Systems All pertinent positive and negative review of systems mentioned in the HPI. Otherwise unremarkable. Past Medical History Past Medical History: Hyperlipidemia Additional Past Medical History / Comment(s): PVC's runs 4-5,migraines,poly neuropathy. Environmental allergies. Tested negative for the BRCA1 mutation. +covid 07/30/24 History of Any Multi-Drug Resistant Organisms: None Reported Past Surgical History: Bariatric Surgery, Section, Cholecystectomy, Orthopedic Surgery, Tubal Ligation, Uterine Ablation Additional Past Surgical History / Comment(s): D&C, right foot surgery, ankle surgery right 2021. section x 2. colonoscopy 2023(next after 5yr). Gastric Bypass 06-13-24, EGD-Dilatation 07/14/24.and later in aug 08 2024, 09/05/24 Past Anesthesia/Blood Transfusion Reactions: No Reported Reaction Additional Past Anesthesia/Blood Transfusion Reaction / Comment(s): no blood transfusion Past Psychological History: No Psychological Hx Reported Smoking Status: Former smoker Past Alcohol Use History: Rare Additional Past Alcohol Use History / Comment(s): quit smoking 2009,smoked appro x 23 yrs,1ppd Past Drug Use History: None Reported - Past Family History Mother Family Medical History: Thyroid Disorder Sister(s) Family Medical History: Cancer, Deep Vein Thrombosis (DVT) Additional Family Medical History / Comment(s): Sister had ovarian, breast and skin cancer . BRCA1+, Carries breast and ovarian CA gene and blood clot gene Father Additional Family Medical History / Comment(s): +BRCA1 gene. Paternal aunt had ovarian cancer and another paternal aunt had breast cancer. Paternal grandfather had either colon or prostate cancer. Brother(s) Family Medical History: Cancer Additional Family Medical History / Comment(s): Skin cancer. Positive for the BRCA1 gene mutation. Medications and Allergies Home Medications Medication Instructions Recorded Confirmed Type Fluticasone Propionate [Flonase 2 spr EA NOSTRIL BID 11/11/23 02/10/25 History Allergy Relief] Levocetirizine Dihydrochloride 5 mg PO DAILY 09/28/24 02/10/25 History [Xyzal] Atogepant [Qulipta] 60 mg PO DAILY 12/21/24 02/10/25 History Vitamin B Complex 1 cap PO DAILY 12/21/24 02/10/25 History Bariatric Multivitamin 1 tab PO DAILY 02/10/25 02/10/25 History Calcium Citrate 1250mg W/Vit D3 1 tab PO DAILY 02/10/25 02/10/25 History 125mcg Zinc Gluconate [Zinc] 50 mg PO DAILY 02/10/25 02/10/25 History valACYclovir HCL [Valtrex] 500 mg PO BID PRN 02/10/25 02/10/25 History Allergies Allergy/AdvReac Type Severity Reaction Status Date / Time latex Allergy Severe Rash/Hives/Lips Verified 02/10/25 19:42 swell codeine Allergy Rash/Hives Verified 02/10/25 19:42 Penicillins Allergy Rash/Hives Verified 02/10/25 19:42 Sulfa (Sulfonamide Allergy blisters Verified 02/10/25 19:42 Antibiotics) on tongue sulfamethoxazole Allergy blisters Verified 02/10/25 19:42 [From Bactrim] on tongue trimethoprim [From Bactrim] Allergy blisters Verified 02/10/25 19:42 on tongue Physical Examination - Vital Signs Vital Signs: Vital Signs Temp Pulse Pulse Resp BP BP Pulse Ox 02/11/25 11:30 57 L 16 129/84 100 02/11/25 08:00 97.7 F 62 17 119/79 100 02/11/25 03:55 50 L 18 110/70 97 02/10/25 23:40 97.0 F L 61 16 101/64 97 02/10/25 21:00 55 L 20 133/85 100 02/10/25 20:02 77 18 123/67 99 02/10/25 20:01 67 18 123/77 99 02/10/25 17:42 98.3 F 61 18 151/94 100 Intake and Output 02/11/25 02/11/25 02/11/25 06:59 14:59 22:59 Intake Total 1560 Balance 1560 Intake: Oral 1560 Other: Voiding Method Toilet Toilet # Voids 1 1 Weight 97.8 kg Patient is a middle aged female, very pleasant, in no acute distress. Patient is alert awake oriented to time place and person. Speech and language functions are normal. Patient can name and repeat very well. No aphasia or dysarthria. Attention, concentration and fund of knowledge is adequate. On cranial nerve examination, pupils are equal, round and reacting to light, visual thurman are full on confrontation, with no neglect on double simultaneous stimulation. Extraocular muscles are intact with no nystagmus. Face is symmetric, tongue protrudes to the midline. Palatal elevation and sensation normal, hearing and shoulder shrug normal, facial sensation normal. On muscle strength testing, there is no pronator drift and the strength is normal in arms and legs distally and proximally. Deep tendon reflexes are symmetric 2 at the biceps, 1+ brachioradialis, 1 at the knees, trace ankles and plantars downgoing bilaterally. Sensory to touch is equal with no neglect on double simultaneous stimulation. Cerebellar function showed questionable only ataxia for [id number] testing, only in the left upper limb. No dysdiadochokinesia. No ataxia for vubn-jw-lbzf testing on either side. Tone and bulk of muscles normal. Gait deferred.. On general examination, there is no carotid bruit or murmur, S1-S2 audible. Chest is clear on consultation. Abdomen is soft nontender. No organomegaly, bowel sounds present. Peripheral pulses are present. No peripheral edema. Results - Laboratory Findings CBC and BMP: 02/12/25 08:11 02/12/25 08:11 Assessment and Plan Assessment: * New onset diplopia, pressure headache, blurred vision, unclear cause. Per oph thalmologist, patient has disc edema OS, enlarged blind spot. Rule out pseudotumor cerebri. MRI of the brain performed without contrast revealed no significant white matter lesions or demyelination. * Chronic sinusitis. MRI brain still showing evidence of sphenoid sinusitis right mastoid effusion. * History of benign orgasmic headaches * Migraine headaches * History of gastric bypass surgery 06/13/2024 * Ex tobacco use Plan: * MRI brain without contrast has been completed, which revealed no evidence of intracranial mass or acute/subacute infarct. Nonspecific minimal white matter changes, likely related to small vessel ischemic disease. Demyelinating disease, chronic migraines, vasculitis, Lyme disease or other considerations. Mild mucosal sinus disease with air-fluid level within the right sphenoid sinus. Correlate clinically with acute sinusitis. Trace right mastoid effusion. I personally reviewed MRI, and agree with the findings. No evidence of any acute process. 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 The vertebral and carotid arteries of the neck remain widely patent. No large vessel intracranial arterial occlusion, significant stenosis or aneurysm seen. * 2D echo revealed LVEF 60 to 65%. No obvious regional wall motion a bnormalities. Right ventricular size is normal. Normal left and right atrial size. No evidence of fwuas-[id number] intracardiac shunting on bubble study. * Lipid panel with cholesterol 183, LDL 113, HDL 47, triglycerides 109. * Hemoglobin A1c 5.0. * ESR 7. Check Lyme titer, angiotensin-converting enzyme. * Her recent vitamins testing on 12/21/2024 was normal including vitamin A 51, vitamin B1 103, B12 1451, folate 9.9, TSH 2.73. Will start folic acid 1 mg daily. * Patient will undergo lumbar puncture to check for opening pressure, rule out pseudotumor cerebri, and also to send CSF for analysis, including MS panel. * Neurology will follow. Thank you for the consult. Time with Patient: Greater than 30
--- NOTE | 2025-02-12 13:06 | P.PN ---
Subjective Progress Note Date: 02/12/25 patient is 54-year-old lady with past medical history significant for hyperlipidemia, GERD who presented to the ER for double vision in her left eye. Patient was seen initially in the ER yesterday morning at which time patient CT head without contrast and CTA head and neck done, CT brain did not show any acute intracranial abnormality, CTA head and neck showed no significant stenosis, aneurysm or thrombus in the intracranial circulation. Patient was discharged to follow-up outpatient with box office attendant, patient was evaluated by ophthalmology and was told to come back to the ER for an MRI brain. Patient stated that she was all right yesterday morning when she started noticing that her vision was blurred and was having double vision in her left eye. Patient was medical headache for a few days. There was no complaint of any weakness of any extremity. There was also no slurred speech. Because of the symptoms, patient brought in the ER Patient admitted to internal medicine service 02/12. Patient seen and examined. MRI brain done showed no evidence of intracranial mass or infarct, showed nonspecific minimal white matter changes .patient was seen by neurology, they recommend doing LP. States headache is improved. Still complaining of blurred vision REVIEW OF SYSTEMS: CONSTITUTIONAL: No fever, no malaise,. CARDIOVASCULAR: No chest pain, no palpitations, no syncope. PULMONARY: No shortness of breath, no cough, GASTROINTESTINAL: No diarrhea, no nausea, no vomiting, no abdominal pain. NEUROLOGICAL: No headaches, no weakness, PHYSICAL EXAMINATION: GENERAL: The patient is alert and oriented x3, not in any acute distress. Well developed, well nourished. HEENT: Pupils are round and equally reacting to light. EOMI. No scleral icterus. No conjunctival pallor. Normocephalic, atraumatic. No pharyngeal erythema. No thyromegaly. CARDIOVASCULAR: S1 and S2 present. No murmurs, rubs, or gallops. PULMONARY: Chest is clear to auscultation, no wheezing or crackles. ABDOMEN: Soft, nontender, nondistended, normoactive bowel sounds. No palpable organomegaly. MUSCULOSKELETAL: No joint swelling or deformity. EXTREMITIES: No cyanosis, clubbing, or pedal edema. NEUROLOGICAL: Gross neurological examination did not reveal any focal deficits. SKIN: No rashes. Assessment and plan Diplopia Headache Monitor vital signs Monitor CBC Monitor CMP Continue telemetry monitoring Continue neurochecks Ordered 2D echo MRI brain done showed no evidence of intracranial mass or infarct, showed nonspecific minimal white matter changes Neurology following, recommending LP Labs and medication were reviewed.. Continue same treatment. Continue with symptomatic treatment. Resume home medication. Monitor labs and vitals. DVT and GI prophylaxis. Further recommendations as per clinical course of the patient Dictation was produced using [employer] dictation software. please excuse any grammatical, word or spelling errors. Objective - Vital Signs Vital signs: Vital Signs Temp 97.9 F 02/12/25 08:00 Pulse 100 02/12/25 08:00 Resp 20 02/12/25 08:00 BP 120/82 02/12/25 08:00 Pulse Ox 100 02/12/25 08:00 FiO2 Intake & Output 02/11/25 02/12/25 02/12/25 18:59 06:59 18:59 Intake Total 2340 240 Balance 2340 240 Weight 97.1 kg Intake: Oral 2340 240 Other: Voiding Method Toilet Toilet # Voids 2 1 1 - Labs CBC & Chem 7: 02/12/25 08:11 02/12/25 08:11 Labs: Abnormal Lab Results - Last 24 Hours (Table) 02/12/25 Range/Units 08:11 Glucose 164 H (74-99) mg/dL
[2025-02-12] MEDS: FOLIC ACID 1 MG TAB PO SCH (13:32)
[2025-02-12] MEDS: LIDOCAINE 1% INJ 10MG/ML (5 ML VIAL-PF) SQ STA (15:01)
[2025-02-12 15:43] LABS: Glucose,CSF 54 mg/dL (40-70); Total Protein,CSF 31 mg/dL (12-60)
--- NOTE | 2025-02-12 16:12 | P.PN ---
Subjective Progress Note Date: 02/12/25 Patient was seen for a follow-up. Patient states that earlier this morning the headache was 2-3/10, but now gone up to 4/10. Patient states her near vision has got worse in the left eye but the distance vision has improved. She still has peripheral visual blurriness bilaterally. Still has diplopia looking to the side. Objective - Vital Signs Vital signs: Vital Signs Temp 97.9 F 02/12/25 08:00 Pulse 55 L 02/12/25 11:46 Resp 17 02/12/25 11:46 BP 124/81 02/12/25 11:46 Pulse Ox 99 02/12/25 11:46 FiO2 Intake & Output 02/11/25 02/12/25 02/12/25 18:59 06:59 18:59 Intake Total 2340 480 Balance 2340 480 Weight 97.1 kg Intake: Oral 2340 480 Other: Voiding Method Toilet Toilet # Voids 2 1 1 - Exam Examination, mental status, speech and language functions are normal. Examination essentially unchanged. - Labs CBC & Chem 7: 02/12/25 08:11 02/12/25 08:11 Labs: Abnormal Lab Results - Last 24 Hours (Table) 02/12/25 Range/Units 08:11 Glucose 164 H (74-99) mg/dL Assessment and Plan Assessment: * New onset diplopia, pressure headache, blurred vision, unclear cause. Per hauling contractor, patient has disc edema OS, enlarged blind spot. Rule out pseudotumor cerebri. MRI of the brain performed without contrast revealed no significant white matter lesions or demyelination. * Chronic sinusitis. MRI brain still showing evidence of sphenoid sinusitis right mastoid effusion. * History of benign orgasmic headaches * Migraine headaches * History of gastric bypass surgery 06/13/2024 * Ex tobacco use Plan: * MRI brain without contrast has been completed, which revealed no evidence of intracranial mass or acute/subacute infarct. Nonspecific minimal white matter changes, likely related to small vessel ischemic disease. Demyelinating disease, chronic migraines, vasculitis, Lyme disease or other considerations. Mild mucosal sinus disease with air-fluid level within the right sphenoid sinus. Correlate clinically with acute sinusitis. Trace right mastoid effusion. I personally reviewed MRI, and agree with the findings. No evidence of any acute process. 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 The vertebral and carotid arteries of the neck remain widely patent. No large vessel intracranial arterial occlusion, significant stenosis or aneurysm seen. * 2D echo revealed LVEF 60 to 65%. No obvious regional wall motion abnormalities. Right ventricular size is normal. Normal left and right atrial size. No evidence of srqzm-[id number]-bkiw intracardiac shunting on bubble study. * Lipid panel with cholesterol 183, LDL 113, HDL 47, triglycerides 109. * Hemoglobin A1c 5.0. * ESR 7. Await Lyme titer, angiotensin-converting enzyme. * Her recent vitamins testing on 12/21/2024 was normal including vitamin A 51, vitamin B1 103, B12 1451, folate 9.9, TSH 2.73. Will start folic acid 1 mg daily. * Patient underwent lumbar puncture to check for opening pressure, rule out pseudotumor cerebri, and also to send CSF for analysis, including MS panel. Patient's opening pressure was 16 cm water. It is normal. No evidence of pseudotumor cerebri. Patient also has lost over 100 pound weight since she underwent bariatric surgery, therefore chance of pseudotumor cerebri is very less. * Patient to be started on Solu-Medrol 1 g IVPB daily for 3 to 5 days. Discussed with patient, and agreed to start steroids because of persistent visual disturbance. * We will check MRI of the orbits with and without contrast. * Dr. Ronald Cuadra to resume neurology service in the morning.
[2025-02-12 16:25] LABS: Appearance,CSF Clear; CSF Tube Number 4; Nucleated Cells, CSF 1 u/L (0-5); Red Blood Cell,CSF 1 u/L (0-10)
[2025-02-12] MEDS: methylPREDNISolone SOD SUCCIN 1,000 MG in SODIUM CHLORIDE 0.9% 250 ML IVPB SCH (16:35)
--- NOTE | 2025-02-12 17:53 | P.PCN ---
Date of Procedure: 02/12/25 Preoperative Diagnosis: Pseudotumor cerebri Postoperative Diagnosis: Pseudotumor cerebri ruled out. Visual disturbance, rule out MS Procedure(s) Performed: Lumbar puncture Anesthesia: local Surgeon: Estefania Kemp Estimated Blood Loss (ml): 0 Condition: stable Disposition: floor Indications for Procedure: Rule out pseudotumor cerebri, rule out MS Description of Procedure: Informed consent was obtained from patient. Patient's was also present by the bedside. Very detailed risks and benefits of the procedure, and the indication of procedure was explained to the patient and her in detail in the presence of nurse. They were informed of the risk of infection, bleeding, numbness, back pain, and the features of post spinal headache and the treatment. Patient was placed in the left lateral recumbent position. The procedure was performed under strict aseptic conditions. L4 lumbar space was identified and marked. Low back region was sterilized with ChloraPrep and then with Betadine, and anesthetized with 1% lidocaine. A spinal needle 20-gauge, 3.5 inch inserted at L4 lumbar space. I was able to enter subarachnoid space after slight manipulation. The spinal fluid was atraumatic, colorless and clear. Opening pressure was 16 cm water. About 12 mL of spinal fluid was collected in 4 tubes. Stylette was reintroduced, spinal needle withdrawn. Band-Aid applied. Patient was recommended to lay flat for half an hour. Patient tolerated the procedure very well.
--- NOTE | 2025-02-13 12:56 | P.PN ---
Subjective Progress Note Date: 02/13/25 patient is 54-year-old lady with past medical history significant for hyperlipidemia, GERD who presented to the ER for double vision in her left eye. Patient was seen initially in the ER yesterday morning at which time patient CT head without contrast and CTA head and neck done, CT brain did not show any acute intracranial abnormality, CTA head and neck showed no significant stenosis, aneurysm or thrombus in the intracranial circulation. Patient was discharged to follow-up outpatient with shredder picker, patient was evaluated by ophthalmology and was told to come back to the ER for an MRI brain. Patient stated that she was all right yesterday morning when she started noticing that her vision was blurred and was having double vision in her left eye. Patient was medical headache for a few days. There was no complaint of any weakness of any extremity. There was also no slurred speech. Because of the symptoms, patient brought in the ER Patient admitted to internal medicine service 02/12. Patient seen and examined. MRI brain done showed no evidence of intracranial mass or infarct, showed nonspecific minimal white matter changes .patient was seen by neurology, they recommend doing LP. States headache is improved. Still complaining of blurred vision 02/13. Patient seen and examined. Patient had LP done by neurology yesterday, opening pressure was 16 cmH2O, CSF studies sent. Currently on IV Solu-Medrol per neurology. Complaining of headache. States blurred vision has improved, peripheral blurred vision is improved REVIEW OF SYSTEMS: CONSTITUTIONAL: No fever, no malaise,. CARDIOVASCULAR: No chest pain, no palpitations, no syncope. PULMONARY: No shortness of breath, no cough, GASTROINTESTINAL: No diarrhea, no nausea, no vomiting, no abdominal pain. NEUROLOGICAL: No headaches, no weakness, PHYSICAL EXAMINATION: GENERAL: The patient is alert and oriented x3, not in any acute distress. Well developed, well nourished. HEENT: Pupils are round and equally reacting to light. EOMI. No scleral icterus. No conjunctival pallor. Normocephalic, atraumatic. No pharyngeal erythema. No thyromegaly. CARDIOVASCULAR: S1 and S2 present. No murmurs, rubs, or gallops. PULMONARY: Chest is clear to auscultation, no wheezing or crackles. ABDOMEN: Soft, nontender, nondistended, normoactive bowel sounds. No palpable organomegaly. MUSCULOSKELETAL: No joint swelling or deformity. EXTREMITIES: No cyanosis, clubbing, or pedal edema. NEUROLOGICAL: Gross neurological examination did not reveal any focal deficits. SKIN: No rashes. Assessment and plan Diplopia Headache Monitor vital signs Monitor CBC Monitor CMP Follow-up on CSF studies Ordered vitamin levels for vitamin A, B1, B12 Lyme titer is pending MRI brain done showed no evidence of intracranial mass or infarct, showed nonspecific minimal white matter changes Continue IV Solu-Medrol Neurology following Labs and medication were reviewed.. Continue same treatment. Continue with symptomatic treatment. Resume home medication. Monitor labs and vitals. DVT and GI prophylaxis. Further recommendations as per clinical course of the patient Dictation was produced using [employer] dictation software. please excuse any grammatical, word or spelling errors. Objective - Vital Signs Vital signs: Vital Signs Temp 98.3 F 02/12/25 20:20 Pulse 68 02/13/25 03:55 Resp 14 02/13/25 03:55 BP 111/73 02/13/25 03:55 Pulse Ox 98 02/13/25 03:55 FiO2 Intake & Output 02/12/25 02/13/25 02/13/25 18:59 06:59 18:59 Intake Total 1560 Balance 1560 Weight 97.5 kg Intake: Oral 1560 Other: Voiding Method Toilet # Voids 2 1 - Labs CBC & Chem 7: 02/12/25 08:11 02/12/25 08:11
--- NOTE | 2025-02-13 13:27 | P.PN ---
Subjective Progress Note Date: 02/13/25 I was seeing the patient for the first time during this hospital visit. Please refer to Dr. Kemp's note for further details. Seems the patient has been having intractable headache with diplopia and a large spot and was referred by her tin stacker for further evaluation. It seems that she had disc edema. The patient feels her vision is improving and headaache is improving. Objective - Vital Signs Vital signs: Vital Signs Temp 98.1 F 02/13/25 08:10 Pulse 67 02/13/25 11:15 Resp 16 02/13/25 11:15 BP 135/85 02/13/25 11:15 Pulse Ox 100 02/13/25 11:15 FiO2 Intake & Output 02/12/25 02/13/25 02/13/25 18:59 06:59 18:59 Intake Total 1560 Output Total 200 Balance 1560 -200 Weight 97.5 kg Intake: Oral 1560 Output: Urine 200 Other: Voiding Method Toilet Toilet # Voids 2 1 - Exam General: Sitting up in a recliner chair and is not in acute distress. Neuro: The patient is awake, alert, oriented to self, place and time. Is following simple commands. No aphasia. Pupils are round, 5mm and reactive to light. Visual thurman are full to confrontation. EOM intact and no nystagmus. No facial weakness. No dysthria. Motor: Strength is 5/5 throughout. - Labs CBC & Chem 7: 02/12/25 08:11 02/12/25 08:11 Labs: Microbiology - Last 24 Hours (Table) 02/12/25 14:45 CSF Gram Stain - Preliminary Cerebral Spinal Fluid Assessment and Plan Assessment: * New onset diplopia, pressure headache, blurred vision, unclear cause. Per tin stacker, patient has disc edema OS, enlarged blind spot. Unsure if has complicated migraine vs Vitamin toxicity vs deficiency especially with hs of gastric bypass and is on supplements. CSF opening pressure is normal Patient also has lost over 100 pound weight since she underwent bariatric surgery, therefore chance of pseudotumor cerebri is very less. MRI of the brain performed without contrast revealed no significant white matter lesions or demyelination. * Chronic sinusitis. MRI brain still showing evidence of sphenoid sinusitis right mastoid effusion. * History of benign orgasmic headaches * Migraine headaches * History of gastric bypass surgery 06/13/2024 * Ex tobacco use Plan: * MRI brain without contrast has been completed, which revealed no evidence of intracranial mass or acute/subacute infarct. Nonspecific minimal white matter changes, likely related to small vessel ischemic disease. Demyelinating disease, chronic migraines, vasculitis, Lyme disease or other considerations. Mild mucosal sinus disease with air-fluid level within the right sphenoid sinus. Correlate clinically with acute sinusitis. Trace right mastoid effusion. I personally reviewed MRI, and agree with the findings. No evidence of any acute process. 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 The vertebral and carotid arteries of the neck remain widely patent. No large vessel intracranial arterial occlusion, significant stenosis or aneurysm seen. * 2D echo revealed LVEF 60 to 65%. No obvious regional wall motion abnormalities. Right ventricular size is normal. Normal left and right atrial size. No evidence of [id number] intracardiac shunting on bubble study. * Lipid panel with cholesterol 183, LDL 113, HDL 47, triglycerides 109. * Hemoglobin A1c 5.0. * ESR 7. Await Lyme titer, angiotensin-converting enzyme. * Her recent vitamins testing on 12/21/2024 was normal including vitamin A 51, vitamin B1 103, B12 1451, folate 9.9, TSH 2.73. Will start folic acid 1 mg daily. * Her Zinc was 52 on 12/2024 and recommend Zinc supplement. * Patient underwent lumbar puncture to check for opening pressure, rule out pseudotumor cerebri, and also to send CSF for analysis, including MS panel. Patient's opening pressure was 16 cm water. It is normal. No evidence of pseudotumor cerebri. * CS: clear, colorless, rbc 1, total nucleated cell 1, glucose 54, total protein 31. * Dr. Kemp started patient on Solu-Medrol 1 g IVPB daily for 3 to 5 days. Discussed with patient, and agreed to start steroids because of persistent visual disturbance. * Pending MRI of the orbits with and without contrast. The plan is discussed with patient and primary team. Time with Patient: Less than 30
--- NOTE | 2025-02-13 15:05 | MR ---
EXAMINATION TYPE: MR orbits wo/w con DATE OF EXAM: 02/13/2025 2:52 PM COMPARISON: MRI brain 02/11/2025, CT brain 02/10/2025 CLINICAL INDICATION: Female, 54 years old with history of Diplopia, disc edema ? Optic neuritis, Dipl opia, disc edema? Optic neuritis IV Contrast: 10 cc Gadobutrol (None if empty) TECHNIQUE: Multiplanar, multisequence images of the orbits is performed without and with IV contrast, utilizing 10 mL intravenous Gadobutrol . FINDINGS: The globes appear symmetrical. Signal intensity of the globes and optic nerves are within normal limits. No optic nerve sheath distention. No tortuosity of the optic nerves. No posterior vidhya be flattening. The intraorbital fat appears preserved. Both lacrimal glands are unremarkable. The ex traocular muscles appear symmetric. After administration of contrast, no abnormal enhancement is seen . Partial empty sella redemonstrated. Mild mucosal thickening of the ethmoid sinuses. Air-fluid level within the right sphenoid sinus again. IMPRESSION: 1. No evidence of intraorbital mass or significant abnormality. 2. Air-fluid level within the right sphenoid sinus redemonstrated. Correlate clinically for acute si nusitis. [facility], , 02/13/2025 3:03 PM
[2025-02-14] MEDS: DOXYCYCLINE 100 MG TABLET PO SCH (13:12)
--- NOTE | 2025-02-14 13:31 | P.PN ---
Subjective Progress Note Date: 02/14/25 I am following-up with patient and had MRI orbit which was negative for orbital mass or significant abnormality. There is concern for sinuslitis on MRI. Patient is concerned some of her symptoms are due to sinusitis. Denies any new neurological issues. Objective - Vital Signs Vital signs: Vital Signs Temp 98 F 02/14/25 09:15 Pulse 52 L 02/14/25 12:00 Resp 17 02/14/25 12:00 BP 125/79 02/14/25 12:00 Pulse Ox 98 02/14/25 12:00 FiO2 Intake & Output 02/13/25 02/14/25 02/14/25 18:59 06:59 18:59 Intake Total 540 20 10 Output Total 200 Balance 340 20 10 Weight 97.4 kg Intake: IV 20 10 Invasive Line 1 20 10 Oral 540 Output: Urine 200 Other: Voiding Method Toilet Toilet Toilet # Voids 2 2 - Exam General: Sitting up in a recliner chair and is not in acute distress. Neuro: The patient is awake, alert, oriented to self, place and time. Is following simple commands. No aphasia. Pupils are round, 5mm and reactive to light. Visual thurman are full to confrontation. EOM intact and no nystagmus. No facial weakness. No dysthria. Motor: Strength is 5/5 throughout. - Labs CBC & Chem 7: 02/12/25 08:11 02/12/25 08:11 Labs: Abnormal Lab Results - Last 24 Hours (Table) 02/13/25 02/13/25 02/13/25 Range/Units 10:27 10:27 10:27 Vitamin B12 1381.0 H (200.0-944.0) pg/mL Vit D 1,25-Dihydroxy 118.0 H (19.9-79.3) pg/mL Zinc 141 H (60-130) ug/dL Microbiology - Last 24 Hours (Table) 02/12/25 14:45 CSF Gram Stain - Preliminary Cerebral Spinal Fluid CSF Culture - Preliminary Assessment and Plan Assessment: * New onset diplopia, pressure headache, blurred vision, unclear cause. Per location worker, patient has disc edema OS, enlarged blind spot. Unsure if has complicated migraine vs Vitamin toxicity vs deficiency especially with hs of gastric bypass and is on supplements. I cannot exclude some component of headache is due to sinusitis. CSF opening pressure is normal Patient also has lost over 100 pound weight since she underwent bariatric surgery, therefore chance of pseudotumor cerebri is very less. MRI of the brain performed without contrast revealed no significant white matter lesions or demyelination. MRI Orbit was negative. * Chronic sinusitis. MRI brain still showing evidence of sphenoid sinusitis right mastoid effusion. * History of benign orgasmic headaches * Migraine headaches * History of gastric bypass surgery 06/13/2024 * Ex tobacco use Plan: * MRI brain without contrast has been completed, which revealed no evidence of intracranial mass or acute/subacute infarct. Nonspecific minimal white matter changes, likely related to small vessel ischemic disease. Demyelinating disease, chronic migraines, vasculitis, Lyme disease or other considerations. Mild mucosal sinus disease with air-fluid level within the right sphenoid sinus. Correlate clinically with acute sinusitis. Trace right mastoid effusion. I personally reviewed MRI, and agree with the findings. No evidence of any acute process. No * MRI Orbit: No evidence of intraorbital mass or significant abnormality. Air- fluid level within the right sphenoid sinus remonstrated. Correlate clinically for acute sinusitis. 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 The vertebral and carotid arteries of the neck remain widely patent. No large vessel intracranial arterial occlusion, significant stenosis or aneurysm seen. * 2D echo revealed LVEF 60 to 65%. No obvious regional wall motion abnormalities. Right ventricular size is normal. Normal left and right atrial size. No evidence of [id number] intracardiac shunting on bubble study. * Lipid panel with cholesterol 183, LDL 113, HDL 47, triglycerides 109. * Hemoglobin A1c 5.0. * ESR 7. Await Lyme titer, angiotensin-converting enzyme. * Her recent vitamins testing on 12/21/2024 was normal including vitamin A 51, vitamin B1 103, B12 1451, folate 9.9, TSH 2.73. Will start folic acid 1 mg daily. * Her Zinc was 52 on 12/2024 and recommend Zinc supplement. * Serum Lyme is negative. * Patient underwent lumbar puncture to check for opening pressure, rule out pseudotumor cerebri, and also to send CSF for analysis, including MS panel. Patient's opening pressure was 16 cm water. It is normal. No evidence of pseudotumor cerebri. * CS: clear, colorless, rbc 1, total nucleated cell 1, glucose 54, total protein 31. * Dr. Kemp started patient on Solu-Medrol 1 g IVPB daily for 3 to 5 days. Today is day#3 and after today's dose no further need for steroids. * Will defer sinusitis treatment to primary team. * Patient has a follow-up appointment with her Insurance Marketing Rep this Thursday. The plan is discussed with patient and her nurse. There is no further neurological work-up. Will sign off. Please reconsult if needed. Time with Patient: Less than 30
[2025-02-14] MEDS ORDERED: BUTALB/APAP/CAFF 50-325-40MG TAB PO PRN (15:51)
--- NOTE | 2025-02-14 17:39 | P.PN ---
Subjective Progress Note Date: 02/14/25 Patient is 54-year-old lady with past medical history significant for hyperlipidemia, GERD who presented to the ER for double vision in her left eye. Patient was seen initially in the ER yesterday morning at which time patient CT head without contrast and CTA head and neck done, CT brain did not show any acute intracranial abnormality, CTA head and neck showed no significant stenosis, aneurysm or thrombus in the intracranial circulation. Patient was discharged to follow-up outpatient with assembler motor vehicle, patient was evaluated by ophthalmology and was told to come back to the ER for an MRI brain. Patient stated that she was all right yesterday morning when she started noticing that her vision was blurred and was having double vision in her left eye. Patient was medical headache for a few days. There was no complaint of any weakness of any extremity. There was also no slurred speech. Because of the symptoms, patient brought in the ER Patient admitted to internal medicine service 02/12. Patient seen and examined. MRI brain done showed no evidence of intracranial mass or infarct, showed nonspecific minimal white matter changes .patient was seen by neurology, they recommend doing LP. States headache is improved. Still complaining of blurred vision 02/13. Patient seen and examined. Patient had LP done by neurology yesterday, opening pressure was 16 cmH2O, CSF studies sent. Currently on IV Solu-Medrol per neurology. Complaining of headache. States blurred vision has improved, peripheral blurred vision is improved 02/14. Patient seen and examined. Patient continues to have headache. Lyme titer negative. MR orbits with without contrast findings of air-fluid level within the right sphenoid sinus, redemonstrated. Zinc 141 is elevated, vitamin B12 1381 elevated, vitamin D 118 elevated. Neurology following. REVIEW OF SYSTEMS: Reviewed. PHYSICAL EXAMINATION: Vitals reviewed. GENERAL: The patient is alert and oriented x3, not in any acute distress. Well developed, well nourished. HEENT: Pupils are round and equally reacting to light. EOMI. No scleral icterus. No conjunctival pallor. Normocephalic, atraumatic. No pharyngeal erythema. No thyromegaly. CARDIOVASCULAR: S1 and S2 present. No murmurs, rubs, or gallops. PULMONARY: Chest is clear to auscultation, no wheezing or crackles. ABDOMEN: Soft, nontender, nondistended, normoactive bowel sounds. No palpable o rganomegaly. MUSCULOSKELETAL: No joint swelling or deformity. EXTREMITIES: No cyanosis, clubbing, or pedal edema. NEUROLOGICAL: Gross neurological examination did not reveal any focal deficits. SKIN: No rashes. Assessment and plan: #Acute sinusitis #Diplopia #Headache Monitor vital signs Follow-up on CSF studies Ordered vitamin levels for vitamin A, B1, vitamin C, vitamin E Zinc 141 is elevated, vitamin B12 1381 elevated, vitamin D 118 elevated Ordered VDRL CSF Lyme titer is negative MRI brain done showed no evidence of intracranial mass or infarct, showed nonsp ecific minimal white matter changes MR orbits with without contrast findings of air-fluid level within the right sphenoid sinus, redemonstrated Begin doxycycline 100 mg p.o. twice daily Begin Fioricet 50-325-40 p.o. every 4 hours as needed for headache Neurology following, note reviewed Labs and medication were reviewed.. Continue same treatment. Continue with symptomatic treatment. Resume home medication. Monitor labs and vitals. DVT and GI prophylaxis. Further recommendations as per clinical course of the patient Dictation was produced using [employer] dictation software. please excuse any grammatical, word or spelling errors. Objective - Vital Signs Vital signs: Vital Signs Temp 97.6 F 02/13/25 19:45 Pulse 60 02/14/25 04:55 Resp 17 02/14/25 04:55 BP 101/63 02/14/25 04:55 Pulse Ox 98 02/14/25 04:55 FiO2 Intake & Output 02/13/25 02/14/25 02/14/25 18:59 06:59 18:59 Intake Total 540 20 Output Total 200 Balance 340 20 Weight 97.4 kg Intake: IV 20 Invasive Line 1 20 Oral 540 Output: Urine 200 Other: Voiding Method Toilet Toilet # Voids 2 2 - Labs CBC & Chem 7: 02/12/25 08:11 02/12/25 08:11 Labs: Abnormal Lab Results - Last 24 Hours (Table) 02/13/25 Range/Units 10:27 Vitamin B12 1381.0 H (200.0-944.0) pg/mL Microbiology - Last 24 Hours (Table) 02/12/25 14:45 CSF Gram Stain - Preliminary Cerebral Spinal Fluid
[2025-02-15 06:19] LABS: Vitamin A 50 ug/dL (38-106); Vitamin E (Alpha Tocopherol) 1194 ug/dL (500-1800)
[2025-02-15 09:10] VITALS: BP 113/76; PULSE 71; RESP 18; TEMP 97.9
[2025-02-15 13:50] LABS: IgG - CSF 1.6 mg/dL (0.0 - 3.4); IgG/Albumin Index (CSF) 0.52 (0.00 - 0.77); Immunoglobulin G 959 mg/dL (700 - 1600)
--- NOTE | 2025-02-15 18:36 | P.DS ---
Providers Date of admission: 02/10/25 18:39 Expected date of discharge: 02/15/25 Attending physician: Lalo Koehler Consults: 02/10/25 18:52 Consult Physician Urgent Consulting Provider: Estefania Kemp Consult Reason/Comments: Papilledema, diplopia Do you want consulting provider notified?: Yes Primary care physician: Trent Claros Hospital Course: Discharge diagnoses; #Acute sinusitis #Diplopia #Headache Hospital course; Patient is 54-year-old lady with past medical history significant for hyperlipidemia, GERD who presented to the ER for double vision in her left eye. Patient was seen initially in the ER yesterday morning at which time patient CT head without contrast and CTA head and neck done, CT brain did not show any acute intracranial abnormality, CTA head and neck showed no significant stenosis, aneurysm or thrombus in the intracranial circulation. Patient was discharged to follow-up outpatient with ventilating expert, patient was evaluated by ophthalmology and was told to come back to the ER for an MRI brain. Patient stated that she was all right yesterday morning when she started noticing that her vision was blurred and was having double vision in her left eye. Patient was medical headache for a few days. There was no complaint of any weakness of any extremity. There was also no slurred speech. During hospital stay patient had extensive workup which was mostly unrevealing, and was seen by neurology. MR orbits with without contrast findings of air-fluid level within the right sphenoid sinus, redemonstrated. She began doxycycline 100 mg p.o. twice daily and improved. Patient is discharged stable condition to home. She is to continue doxycycline 100 mg p.o. twice daily for 7 days. Recommended to follow-up with PCP and neurology. PHYSICAL EXAMINATION: Vitals reviewed. GENERAL: The patient is alert and oriented x3, not in any acute distress. Well developed, well nourished. HEENT: Pupils are round and equally reacting to light. EOMI. No scleral icterus. No conjunctival pallor. Normocephalic, atraumatic. No pharyngeal erythema. No thyromegaly. CARDIOVASCULAR: S1 and S2 present. No murmurs, rubs, or gallops. PULMONARY: Chest is clear to auscultation, no wheezing or crackles. ABDOMEN: Soft, nontender, nondistended, normoactive bowel sounds. No palpable organomegaly. MUSCULOSKELETAL: No joint swelling or deformity. EXTREMITIES: No cyanosis, clubbing, or pedal edema. NEUROLOGICAL: Gross neurological examination did not reveal any focal deficits. SKIN: No rashes. Dictation was produced using [employer] dictation software. please excuse any grammatical, word or spelling errors. Patient Condition at Discharge: Stable Plan - Discharge Summary Discharge Rx Participant: No New Discharge Prescriptions: New Doxycycline 100 mg PO BID #14 tab Continue Fluticasone Propionate [Flonase Allergy Relief] 2 spr EA NOSTRIL BID valACYclovir HCL [Valtrex] 500 mg PO BID PRN PRN Reason: onset of outbreak Zinc Gluconate [Zinc] 50 mg PO DAILY Levocetirizine Dihydrochloride [Xyzal] 5 mg PO DAILY Atogepant [Qulipta] 60 mg PO DAILY Vitamin B Complex 1 cap PO DAILY Bariatric Multivitamin 1 tab PO DAILY Calcium Citrate 1250mg W/Vit D3 125mcg 1 tab PO DAILY Discharge Medication List Fluticasone Propionate [Flonase Allergy Relief] 2 spr EA NOSTRIL BID 11/11/23 [History] Levocetirizine Dihydrochloride [Xyzal] 5 mg PO DAILY 09/28/24 [History] Atogepant [Qulipta] 60 mg PO DAILY 12/21/24 [History] Vitamin B Complex 1 cap PO DAILY 12/21/24 [History] Bariatric Multivitamin 1 tab PO DAILY 02/10/25 [History] Calcium Citrate 1250mg W/Vit D3 125mcg 1 tab PO DAILY 02/10/25 [History] Zinc Gluconate [Zinc] 50 mg PO DAILY 02/10/25 [History] valACYclovir HCL [Valtrex] 500 mg PO BID PRN 02/10/25 [History] Doxycycline 100 mg PO BID #14 tab 02/15/25 [Rx] Follow up Appointment(s)/Referral(s): Trent Claros MD [Primary Care Provider] - 1-2 days Mir Caballero DO [STAFF PHYSICIAN] - 1 Week Discharge Disposition: HOME SELF-CARE
== END 2025-02-15 12:14 | disposition home or self-care (01) | DRG 153 ==
LOC: EC 17:26 → 3SCARD 18:39
PROVIDERS: ADMIT Internal Medicine; ATTEND Internal Medicine
PROC: 009U3ZX Drainage of Spinal Canal, Percutaneous Approach, Diagnostic (ICD-10-PCS; principal; 2025-02-12)
DX: J01.30 Acute sphenoidal sinusitis, unspecified (principal); H47.10 Unspecified papilledema; H53.2 Diplopia; G43.909 Migraine, unspecified, not intractable, without status migrainosus; J32.3 Chronic sphenoidal sinusitis; Z88.5 Allergy status to narcotic agent; Z88.0 Allergy status to penicillin; Z88.2 Allergy status to sulfonamides; Z91.040 Latex allergy status; Z87.891 Personal history of nicotine dependence; Z98.84 Bariatric surgery status
CPT/HCPCS: 70543; 70551; 80053; 80061; 82040; 82042; 82164; 82180; 82607; 82652; 82784; 82945; 83036; 83916; 84157; 84446; 84590; 84630; 85025; 85652; 86618; 87070; 87205; 88108; 89050; 93306; 99284

== ENCOUNTER → 2025-03-17 | Outpatient (CLI) | payer MEDICAID ==
--- NOTE | 2025-03-17 07:50 | MM ---
Reason for Exam: Screening (asymptomatic). Last mammogram was performed 1 year(s) and 5 month(s) ago. Patient History: Menarche at age 12. First Full-Term at age 22. Postmenopausal. Patient has history of breast feeding. Patient tested for BRCA1 outcome was negative. Paternal aunt had breast cancer. Sister had breast cancer, age 46. Sister had ovarian cancer, age 48. Paternal aunt tested for BRCA2 outcome was positive. Sister tested for BRCA2 outcome was positive. Risk Values: Beatriz 5 year model risk: 2.2%. NCI Lifetime model risk: 15.4%. Prior Study Comparison: 11/12/2020 Bilateral Screening Mammogram, [facility]. 10/10/2022 Bilateral MG 3D screening mammo w/cad, [facility]. 10/16/2023 Bilateral MG 3D screening mammo w/cad, [facility]. Tissue Density: The breasts are heterogeneously dense, which may obscure small masses. Findings: Analyzed By CAD. Right breast: There is no suspicious group of microcalcifications or new suspicious mass. Left breast: There is no suspicious group of microcalcifications or new suspicious mass. Overall Assessment: Negative, BI-RAD 1 Management: Screening Mammogram of both breasts in [address] [facility] will attempt to contact patient to return for supplemental views and ultrasound if indicated. Patient should continue monthly self-breast exams. A clinical breast exam by your physician is recommended on an annual basis. This exam should not preclude additional follow-up of suspicious palpable abnormalities. Note on Beatriz scores and lifetime risk: 1. A Beatriz score greater than 3% is considered moderate risk. If this is the case, consider specialist referral to assess eligibility for a risk reducing agent. 2. If overall lifetime risk for the development of breast cancer is 20% or higher, the patient may qualify for future screening with alternating mammogram and breast MRI. [facility], , 03/17/2025 7:45 AM. Electronically signed and approved by: Lio Nash DO
== END | disposition home or self-care (01) ==
LOC: RADMAMWWP 07:03
PROVIDERS: ATTEND Family Medicine
DX: Z12.31 Encounter for screening mammogram for malignant neoplasm of breast (principal); R92.333 Mammographic heterogeneous density, bilateral breasts; Z78.0 Asymptomatic menopausal state; Z80.3 Family history of malignant neoplasm of breast
CPT/HCPCS: 77063; 77067

== ENCOUNTER → 2025-03-25 | Outpatient (CLI) | payer MEDICAID ==
[2025-03-25 10:04] LABS: Partial Thromboplastin Time 23.6 sec (22.0-30.0); Prothrombin Time 10.9 sec (10.0-12.5)
[2025-03-27 14:59] LABS: Zinc, Serum 72 ug/dL (60-130)
== END | disposition home or self-care (01) ==
LOC: LABWHC1 09:20
PROVIDERS: ATTEND Surgery Plastic and Reconstructive Surgery
DX: Z00.00 Encounter for general adult medical examination without abnormal findings (principal)
CPT/HCPCS: 36415; 82525; 84255; 84425; 84590; 84630; 85610; 85730